=== PATIENT | male | born 1950 | race Caucasian/White ===

== ENCOUNTER 2021-10-23 00:27 | Day surgery (SDC) | payer OTHER, SELFPAY ==
[2021-10-10 13:30] VITALS: BMI 32.1
--- NOTE | 2021-10-22 19:38 | WPDGICN ---
Assessment and Plan Assessment and plan (1) Screen for colon cancer: Code(s): Z12.11 - Encounter for screening for malignant neoplasm of colon Status: Acute (2) COPD (chronic obstructive pulmonary disease): Qualifiers: COPD type: unspecified COPD Qualified Code(s): J44.9 - Chronic obstructive pulmonary disease, unspecified Code(s): J44.9 - Chronic obstructive pulmonary disease, unspecified Status: Acute Assessment and Plan: Colonoscopy with possible biopsy or polypectomy or cautery or injection of substances. GI Consult Note Consult date/time: 10/22/21 19:38 HPI: Luis Antonio Jensen is a 71 year old male who s due fr colon cancer screening. He is not aware of family history of colon cancer. 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 Review of Systems Review of Systems: All systems reviewed & are unremarkable except as noted in HPI and below PMFSH Past Medical History Medical History (Updated 09/12/21 @ 15:33 by Bryan Muse MD) Bipolar 1 disorder BMI 31.0-31.9,adult Hyperlipidemia Hypertension Recurrent URI (upper respiratory infection) Screen for colon cancer Surgical History Surgical History Deviated septum FH: cholecystectomy H/O left knee surgery Pneumothorax Family History Family History Other Brain tumor Heart disease Hypertension Pancreatic cancer Social History Social History Smoking packs per day: 1 Smoking cigarettes per day: 20.0 Years smoked: 40 Smoking pack-years: 40.00 Smoking status: Current every day smoker Tobacco type: cigarettes Alcohol intake: never Drinks per week: 1 Substance use: never Substance use type: does not use Living arrangements: with family Gender identity (if verbalized by the patient): Male Sexual Orientation (if Verbalized by the Patient): Straight or Heterosexual Spiritual care concerns: No Meds Home Medications and Allergies Home Medications Medication Instructions Recorded Confirmed Type lamotrigine 200 mg tablet 200 mg PO DAILY tablet 09/12/21 10/23/21 History losartan 50 mg tablet 50 mg PO DAILY tablet 09/12/21 10/23/21 History simvastatin 40 mg tablet 40 mg PO DAILY tablet 09/12/21 10/23/21 History venlafaxine 150 mg 150 mg PO DAILY cap 09/12/21 10/23/21 History capsule,extended release 24 hr Allergies Allergy/AdvReac Type Severity Reaction Status Date / Time No Known Allergies Allergy Verified 10/23/21 10:53 Exam Const: General: alert Nutritional Appearance: overweight Orientation/consciousness: patient oriented x3 Resp: Auscultation: clear to auscultation bilaterally Cardio: Rhythm: regular rhythm GI: GI Palp: Yes Soft to palpation and No Tenderness to palpation present (GI) Neuro: General: patient oriented x3 AMG Consult Billing Observation Consult [id number] New Pt Lvl 2 Strfd
[2021-10-23 10:45] VITALS: BP 168/80; PULSE 74; RESP 18; TEMP 36.7; O2SAT 99; BMI 32.0
[2021-10-23] MEDS: LACTATED RINGERS 1,000 ML 150 ML IV CONT (11:08)
--- NOTE | 2021-10-23 11:11 | P.PNAN_ITS ---
Anes - Initial Pre Proc Eval Procedure: Operation Date: 10/23/21 12:30 Proposed Procedures p Screening Colonoscopy - Vignesh Abbasi MD Date/Time: 10/23/21 11:11 Surgeon: Vignesh Abbasi MD Pre Op Diagnosis: neoplasm screening Patient Data Age: 71 Gender: M Height: 1.8 m Weight: 104.1 kg Last Vital Signs Temp 36.7 C 10/23/21 10:45 Pulse 74 10/23/21 10:45 Resp 18 10/23/21 10:45 BP 168/80 H 10/23/21 10:45 Pulse Ox 99 10/23/21 10:45 Allergies Allergy/AdvReac Type Severity Reaction Status Date / Time No Known Allergies Allergy Verified 10/23/21 10:53 Home Medications Medication Instructions Recorded Confirmed Type lamotrigine 200 mg tablet 200 mg PO DAILY tablet 09/12/21 10/23/21 History losartan 50 mg tablet 50 mg PO DAILY tablet 09/12/21 10/23/21 History simvastatin 40 mg tablet 40 mg PO DAILY tablet 09/12/21 10/23/21 History venlafaxine 150 mg 150 mg PO DAILY cap 09/12/21 10/23/21 History capsule,extended release 24 hr Patient hx anesthesia problems: none Family hx anesthesia problems: none Results Review: All pre-operative results and documents have been reviewed as part of the pre-operative evaluation. [facility] Past Medical History Medical History Bipolar 1 disorder BMI 31.0-31.9,adult Hyperlipidemia Hypertension Recurrent URI (upper respiratory infection) Screen for colon cancer Surgical History Surgical History Deviated septum FH: cholecystectomy H/O left knee surgery Pneumothorax Family History Family History Other Brain tumor Heart disease Hypertension Pancreatic cancer Social History Social History Smoking packs per day: 1 Smoking cigarettes per day: 20.0 Years smoked: 40 Smoking pack-years: 40.00 Smoking status: Current every day smoker Tobacco type: cigarettes Alcohol intake: never Drinks per week: 1 Substance use: never Substance use type: does not use Living arrangements: with family Gender identity (if verbalized by the patient): Male Sexual Orientation (if Verbalized by the Patient): Straight or Heterosexual Spiritual care concerns: No Anes - Eval Final PreProcedure Day of Procedure 10/23/21 11:11 Patient weight: obese Heart: regular rate and rhythm Lungs: clear to auscultation Airway: Mallampati scale class II Neurological: alert and oriented Last oral intake: >/= 8 hours ASA classification: III Emergent: no Anesthetic plan: proceed Anesthesia type and monitoring: general GIVS and standard monitoring Results Review: All pre-operative results and documents have been reviewed as part of the pre-operative evaluation. Informed Consent: The patient's anesthetic plan and its attendant risks and benefits were discussed with the patient/family/POA. Questions were solicited and answers provided to the satisfaction of the patient/family/POA.
[2021-10-23 12:29] VITALS: BP 99/63; PULSE 69; RESP 20; O2SAT 95
[2021-10-23 12:39] VITALS: BP 118/75; PULSE 64; RESP 18; O2SAT 96
[2021-10-23 12:49] VITALS: BP 135/78; PULSE 62; RESP 20; O2SAT 97
== END 2021-10-23 13:00 | disposition home or self-care (01) ==
PROVIDERS: PCP Family Medicine; Visit Provider Internal Medicine Gastroenterology
PROC: 0DJD8ZZ Inspection of Lower Intestinal Tract, Via Natural or Artificial Opening Endoscopic (ICD-10-PCS; CPT 45378; principal; 2021-10-23 12:30)
DX: Z12.11 Encounter for screening for malignant neoplasm of colon (principal); D12.0 Benign neoplasm of cecum; K63.5 Polyp of colon; J44.9 Chronic obstructive pulmonary disease, unspecified; I10 Essential (primary) hypertension; E78.5 Hyperlipidemia, unspecified; F31.9 Bipolar disorder, unspecified; F10.21 Alcohol dependence, in remission; F17.210 Nicotine dependence, cigarettes, uncomplicated; E66.9 Obesity, unspecified; Z68.32 Body mass index [BMI] 32.0-32.9, adult
CPT/HCPCS: 45385; 88305; J2704; J7120

== ENCOUNTER 2022-11-13 09:05 | Outpatient (CLI) | payer OTHER, SELFPAY ==
[2022-11-13 09:59] LABS: Anion Gap 3 mmol/L (8-16); Blood Urea Nitrogen 13 mg/dL (9-20); Carbon Dioxide 30 mmol/L (22-30); Chloride 103 mmol/L (98-107); Estimated Glomerular Filt Rate 60; Glucose 105 mg/dL (65-110); Potassium 4.4 mmol/L (3.4-5.0); Sodium 136 mmol/L (137-145)
[2022-11-13 10:42] LABS: Hemoglobin A1C 5.3 % (<5.7)
== END 2022-11-13 09:06 | disposition home or self-care (01) ==
PROVIDERS: PCP Family Medicine; Visit Provider Nurse Practitioner Family
DX: R73.09 Other abnormal glucose (principal)
CPT/HCPCS: 36415; 80048; 83036

== ENCOUNTER 2023-04-18 19:21 | Observation (INO) | payer OTHER, SELFPAY ==
--- NOTE | ~2023-04-18 | US_ITS ---
EXAMINATION: US renal BI DATE: 04/19/2023 09:33 INDICATION: Acute kidney injury TECHNIQUE: Multiple grayscale and Doppler ultrasound images of the kidneys were obtained. COMPARISON: None. FINDINGS: The right kidney measures 12.5 x 4.5 x 5.5 cm. The left kidney measures 13.3 x 6 x 5.8 cm. The kidneys demonstrate normal parenchymal echogenicity. There is mild cortical thinning of the kidne ys. Multiple cysts are present in the kidneys. There is no hydronephrosis. The bladder is normal. IMPRESSION: 1. Normal kidneys without hydronephrosis. Reviewed, dictated and finalized at location B.
--- NOTE | ~2023-04-18 | XR_ITS ---
EXAMINATION: XR chest 2V DATE: 04/18/2023 21:31 INDICATION: Cough. TECHNIQUE: Frontal and lateral views of the chest were obtained. COMPARISON: None. FINDINGS: There are airspace opacities in left lower lung zone. There is a small left pleural effusio n. No pneumothorax. The heart size is normal. IMPRESSION: 1. Airspace opacities in left lower lung zone, consistent with atelectasis versus pneumonia. 2. Small left pleural effusion. Reviewed, dictated and finalized at location E. IMPRESSION: 1. Airspace opacities in left lower lung zone, consistent with atelectasis vers us pneumonia. 2. Small left pleural effusion.
[2023-04-18 19:40] VITALS: BP 111/56; PULSE 71; RESP 15; TEMP 36; O2SAT 100
--- NOTE | 2023-04-18 19:45 | ECG_ITS ---
Measurements Intervals [place] Rate: 55 P: 22 CO: 174 QRS: 32 QRSD: 89 T: 93 QT: 445 QTc: 427 Interpretive Statements SINUS BRADYCARDIA BORDERLINE ST-T WAVE ABNORMALITY- HIGH LATERAL LEADS BORDERLINE ECG NO PREVIOUS ECG AVAILABLE FOR COMPARISON Electronically Signed On 04-18-2023 20:30:53 CDT by Anatoliy Topete D.O.
[2023-04-18 21:41] LABS: Basophils Absolute Auto 0.1 K/mm3 (0.0-0.1); Eosinophils Absolute Auto 0.5 K/mm3 (0-0.3); Eosinophils Percent Auto 6.5 % (0-4.4); Immature Granulocyte Absolute 0.06 K/mm3 (0.00-0.031); Immature Granulocyte Percent A 0.8 % (0-0.5); Lymphocytes Absolute Auto 1.65 K/mm3 (0.9-3.2); Lymphocytes Percent Auto 20.9 % (18.3-44.2); Mean Corpuscular HGB Conc 32.5 g/dl (32-36); Mean Corpuscular Hemoglobin 29.1 pg (26-34); Mean Corpuscular Volume 89.5 fl (80-100); Monocytes Absolute Auto 0.8 K/mm3 (0.1-0.6); Neutrophils Absolute Auto 4.8 K/mm3 (1.3-6.7); Neutrophils Percent Auto 60.8 % (45.5-73.1); Platelet Count Result 311 k/mm3 (150-375); Red Blood Count 4.47 M/mm3 (4.6-6.20); White Blood Count 7.9 K/mm3 (4.5-10.0)
[2023-04-18 21:51] LABS: Alanine Aminotransferase 54 U/L (6-50); Alkaline Phosphatase 68 U/L (38-126); Anion Gap 6 mmol/L (8-16); Aspartate Amino Transferase 36 U/L (17-59); Bilirubin,Total 0.4 mg/dL (0.2-1.3); Blood Urea Nitrogen 16 mg/dL (9-20); Calcium 9.1 mg/dL (8.4-10.2); Carbon Dioxide 30 mmol/L (22-30); Chloride 104 mmol/L (98-107); Estimated CRCL calculation 48 ml/min; Estimated Glomerular Filt Rate 43; Glucose 100 mg/dL (65-110); Potassium 4.5 mmol/L (3.4-5.0); Sodium 140 mmol/L (137-145)
[2023-04-18 21:59] LABS: NT Pro B Type Natriuretic Pept 225 pg/mL (19.9-100)
[2023-04-18 22:20] LABS: Troponin I < 0.012 ng/mL (0.000-0.034)
--- NOTE | 2023-04-18 22:31 | PM.IMHP ---
H&P: HPI History of Present Illness Date/Time: 04/18/23 22:31 Chief Complaint: Syncope Narrative: This is a 73-year-old male with past medical history significant for hypertension, glaucoma, dyslipidemia, bipolar disorder. Patient presents to the emergency room after having syncopal episode x2 at home according to patient his been having fits of cough which is productive of phlegm denies any fevers, rigors, chills, nausea, vomiting, diarrhea, chest pain, lightheadedness, vertigo, leg swelling. Patient had been seen at urgent care and diagnosed with bronchitis given a course of Zithromax . Preliminary workup was significant for orthostatic blood pressures, chemistry panel showed creatinine of 1.6 a chest x-ray was reported as: EXAMINATION: XR chest 2V DATE: 04/18/2023 21:31 INDICATION: Cough. TECHNIQUE: Frontal and lateral views of the chest were obtained. COMPARISON: None. FINDINGS: There are airspace opacities in left lower lung zone. There is a small left pleural effusion. No pneumothorax. The heart size is normal. IMPRESSION: 1. Airspace opacities in left lower lung zone, consistent with atelectasis versus pneumonia. 2. Small left pleural effusion. Review of Systems Review of Systems: Syncope, cough productive of sputum, Constitutional: Constitutional: Reports chills, Reports fatigue, Denies fever(s), Reports lethargy, Reports malaise, Denies night sweats and Reports poor appetite Eyes: Eyes: Denies change in vision ENT: Denies dysphagia, Denies vertigo, Denies dizziness and Denies odynophagia Cardiovascular: Cardiovascular: Denies chest pain, Denies radiating jaw, neck or arm pain and Denies palpitations Respiratory: Respiratory: Reports chest congestion, Reports cough and Reports excessive phlegm production Gastrointestinal: Gastrointestinal: Denies abdominal pain, Denies dyspepsia, Denies heartburn, Denies diarrhea, Denies nausea and Denies vomiting Genitourinary: Genitourinary: Denies dysuria and Denies flank pain Musculoskeletal: Musculoskeletal: Denies back pain, Denies arthralgias and Denies joint swelling Integumentary/Breasts: Skin/Breast: Denies rash Neurologic: Denies focal weakness and Denies Sensory deficit (Neuro) Psychiatric: Psychiatric: Reports no additional psychiatric complaints and Reports as per HPI Endocrine: Endocrine: Denies cold intolerance, Denies flushing, Denies heat intolerance, Denies polyphagia, Denies polydipsia and Denies palpitations Hematologic/Lymphatic: Hematologic/Lymphatic: Reports no additional hematologic/lymphatic complaints and Reports as per HPI Allergic/Immunologic: Allergic/Immunologic: Reports no additional allergic/immunologic complaints and Reports as per HPI [facility] Past Medical History Medical History Bipolar 1 disorder BMI 31.0-31.9,adult BMI 32.0-32.9,adult Glaucoma Hyperlipidemia Hypertension Ingrown nail of great toe Recurrent URI (upper respiratory infection) Screen for colon cancer Screening for prostate cancer Surgical History Surgical History Deviated septum FH: cholecystectomy H/O left knee surgery Pneumothorax Family History Family History Other Brain tumor Heart disease Hypertension Pancreatic cancer Social History Social History Smoking packs per day: 1 Smoking cigarettes per day: 20.0 Years smoked: 40 Smoking pack-years: 40.00 Smoking status: Current every day smoker Tobacco type: cigarettes Alcohol intake: never Drinks per week: 1 Substance use: never Substance use type: does not use Lack of Transportation: No Lack of Food: Never True Current Housing: I Have Housing Concerned About Future Housing: No Difficulty Paying Gas/Electric Bills: No Difficulty Paying
--- NOTE | 2023-04-18 22:36 | ED.URI ---
HPI - URI/Sore Throat General Chief Complaint: Upper Respiratory Infection <Ashley Benitez APRN - Last Filed: 04/19/23 03:11> Stated Complaint: COPD, cough <Ashley Benitez APRN - Last Filed: 04/19/23 03:11> Time Seen by Provider: 04/18/23 21:10 <Ashley Benitez APRN - Last Filed: 04/19/23 03:11> Source: patient <Ashley Benitez APRN - Last Filed: 04/19/23 03:11> Mode of arrival: ambulatory <Ashley Benitez APRN - Last Filed: 04/19/23 03:11> Limitations: no limitations <Ashley Benitez APRN - Last Filed: 04/19/23 03:11> History of Present Illness HPI Narrative: 73-year-old male presents today with concerns for continued cough. Patient states he was seen in urgent care on Saturday diagnosed with bronchitis sent home with albuterol and azithromycin. Over the last few days cough is continued to get worse. Per patient he states he has had syncopal episodes x2 while coughing. Both episodes he was sitting down so no injury had occurred. Patient had an episode tonight where he was coughing and had concerns for syncope and possibly passing out decided come to the emergency department. Chest pain to the right side with cough. Denies fevers, body aches, chills. <Ashley Benitez APRN - Last Filed: 04/19/23 03:11> Related Data Home Medications: Home Medications Medication Instructions Recorded Confirmed lamotrigine 200 mg tablet 200 mg PO HS 09/12/21 04/19/23 venlafaxine 150 mg 150 mg PO DAILY 09/12/21 04/19/23 capsule,extended release 24 hr albuterol sulfate 90 mcg/actuation 2 puff inhalation Q4-6H PRN 04/19/23 04/19/23 aerosol inhaler Shortness Of Breath benzonatate 100 mg capsule 100 mg PO Q6H PRN Cough 04/19/23 04/19/23 dorzolamide 2 % eye drops 2 drp ophthalmic (eye) Q12H 04/19/23 04/19/23 latanoprost 0.005 % eye drops 1 drp ophthalmic (eye) QHS 04/19/23 04/19/23 simvastatin 40 mg tablet 40 mg PO HS 04/19/23 04/19/23 <Ashley Benitez APRN - Last Filed: 04/19/23 03:11> Allergies/Adverse Reactions: Allergies Allergy/AdvReac Type Severity Reaction Status Date / Time morphine Allergy Difficulty Verified 04/19/23 01:04 Breathing <Ashley Benitez APRN - Last Filed: 04/19/23 03:11> Review of Systems Review of Systems: CONSTITUTIONAL: Denies fever, chills, or sweats. EYES: Denies visual changes, redness, or discharge. ENT: Denies rhinorrhea, congestion, sore throat, or otalgia. CARDIOVASCULAR: Denies chest pain, palpitations, or edema. RESPIRATORY: Cough and shortness of breath. GASTROINTESTINAL: Denies abdominal pain, nausea, vomiting, or diarrhea. MUSCULOSKELETAL: Denies back pain, joint pain, or myalgia. <Ashley Benitez MUSHROOM PRESS OPERATOR - Last Filed: 04/19/23 03:11> [facility] Past Medical History Medical History: Medical History Bipolar 1 disorder BMI 31.0-31.9,adult BMI 32.0-32.9,adult Glaucoma Hyperlipidemia Hypertension Ingrown nail of great toe Recurrent URI (upper respiratory infection) Screen for colon cancer Screening for prostate cancer <Ashley Benitez MUSHROOM PRESS OPERATOR - Last Filed: 04/19/23 03:11> Surgical History Surgical History: Surgical History Deviated septum FH: cholecystectomy H/O left knee surgery Pneumothorax <Ashley Benitez MUSHROOM PRESS OPERATOR - Last Filed: 04/19/23 03:11> Family History Family History: Family History Other Brain tumor Heart disease Hypertension Pancreatic cancer <Ashley Benitez MUSHROOM PRESS OPERATOR - Last Filed: 04/19/23 03:11> Social History Social History: Social History Smoking packs per day: 1 Smoking cigarettes per day: 20.0 Years smoked: 40 Smoking pack-years: 40.00 Smoking status: Current every day smoker Tobacco type: cigarettes Alcohol intake: never Drinks per week: 1 Substance u
[2023-04-18 22:42] VITALS: BP 130/63; PULSE 54; RESP 20; O2SAT 96
[2023-04-18] MEDS: SODIUM CHLORIDE 0.9% IV 1,000 ML 999 ML IV CONT (22:53)
[2023-04-18] MEDS: methylPREDNISolone SOD SUCC 125 MG VIAL IV PUSH (22:54)
[2023-04-18 23:52] VITALS: BP 154/69; PULSE 58; RESP 19; TEMP 36.6; O2SAT 97
[2023-04-19] VITALS (7 sets, daily range): BP systolic 133–148; BP diastolic 64–72; PULSE 56–68; RESP 18–20; TEMP 36.4–36.5; O2SAT 94–98; BMI 29.0
--- NOTE | 2023-04-19 00:25 | ADMGEN ---
This patient, Luis Antonio Jensen, was admitted to Medical Room 248-. Patient/family oriented to hospital policies and general routines including ID bracelet, bed and alarms, visiting hours, pain management, procedures, bathroom and other care routines, personal items, smoking policy, room service/diet, and visiting hours. Information on how to activate the Rapid Response Team has been discussed. Patient/Family are encouraged to report perceived risks to care and to ask questions if they do not understand what they are told or what they should do.
[2023-04-19] MEDS: LACTATED RINGERS 1,000 ML 75 ML IV CONT (01:12)
[2023-04-19] MEDS: AZITHROMYCIN 500 MG/NS 250 ML 500 MG/250 ML BAG 250 MG IVPB (01:12)
[2023-04-19 05:33] LABS: Basophils Percent Auto 0.7 % (0.2-1.2); Eosinophils Percent Auto 0.7 % (0-4.4); Hematocrit 37.1 % (42.0-52.0); Hemoglobin 12.2 g/dL (14.0-18.0); Immature Granulocyte Absolute 0.02 K/mm3 (0.00-0.031); Immature Granulocyte Percent A 0.3 % (0-0.5); Lymphocytes Absolute Auto 0.84 K/mm3 (0.9-3.2); Lymphocytes Percent Auto 14.2 % (18.3-44.2); Mean Corpuscular HGB Conc 32.9 g/dl (32-36); Mean Corpuscular Hemoglobin 29.4 pg (26-34); Mean Corpuscular Volume 89.4 fl (80-100); Mean Platelet Volume 9.3 fl (7.4-10.4); Monocytes Absolute Auto 0.2 K/mm3 (0.1-0.6); Monocytes Percent Auto 2.5 % (2.6-8.5); Neutrophils Absolute Auto 4.8 K/mm3 (1.3-6.7); Neutrophils Percent Auto 81.6 % (45.5-73.1); Platelet Count Result 282 k/mm3 (150-375); Red Blood Count 4.15 M/mm3 (4.6-6.20); Red Cell Distribution Width 12.8 % (11.5-14.5); White Blood Count 5.9 K/mm3 (4.5-10.0)
[2023-04-19 05:51] LABS: Alanine Aminotransferase 46 U/L (6-50); Albumin Level 3.7 g/dL (3.5-5.1); Alkaline Phosphatase 65 U/L (38-126); Anion Gap 6 mmol/L (8-16); Aspartate Amino Transferase 34 U/L (17-59); Bilirubin,Total 0.3 mg/dL (0.2-1.3); Blood Urea Nitrogen 16 mg/dL (9-20); Calcium 8.6 mg/dL (8.4-10.2); Carbon Dioxide 24 mmol/L (22-30); Chloride 109 mmol/L (98-107); Estimated CRCL calculation 53 ml/min; Estimated Glomerular Filt Rate 54; Glucose 143 mg/dL (65-110); Potassium 4.3 mmol/L (3.4-5.0); Sodium 139 mmol/L (137-145)
[2023-04-19] MEDS: DORZOLAMIDE HCL 2% OPHTH DROPS 2 DROP EACH EYE (08:46)
[2023-04-19] MEDS: PROPRANOLOL HCL 60 MG CAPSULE CR PO (08:50)
[2023-04-19] MEDS: VENLAFAXINE HCL XR 75 MG CAP.ER.24H 150 MG PO (09:52)
--- NOTE | 2023-04-19 10:17 | PM.DS ---
DS: Admitting Diagnosis Discharge Date 04/19/23 Admitting Diagnosis Acute bronchitis TR DS: Discharge Diagnosis Discharge Diagnosis (1) TR (acute kidney injury): Code(s): N17.9 - Acute kidney failure, unspecified Status: Acute (2) Acute bronchitis: Code(s): J20.9 - Acute bronchitis, unspecified Status: Acute DS: Summary Hospital Course Hospital Course: This is a 73-year-old male with past medical history significant for hypertension, glaucoma, dyslipidemia, bipolar disorder.? Patient presents to the emergency room after having syncopal episode x2 at home according to patient his been having fits of cough which is productive of phlegm denies any fevers, rigors, chills, nausea, vomiting, diarrhea, chest pain, lightheadedness, vertigo, leg swelling.? Patient had been seen at urgent care and diagnosed with bronchitis given a course of Zithromax .? Preliminary workup was significant for orthostatic blood pressures, chemistry panel showed creatinine of 1.6 a chest x-ray was reported as: 1. Airspace opacities in left lower lung zone, consistent with atelectasis versus pneumonia. 2. Small left pleural effusion. Patient was started on IV fluids after which his renal functions are improved. There is no evidence of pneumonia. Patient has bronchitis. He has cough but no sputum production. He is a current smoker. Patient was counseled on smoking cessation. He is being discharged home with oral Zithromax for few days Time Spent with Patient Time attestation: Total time spent providing and/or coordinating discharge services: DS: Data Data Completed and Pending Labs on day of discharge: Labs from last 24 hours 04/19/23 04/18/23 05:12 21:36 WBC 5.9 7.9 RBC 4.15 L 4.47 L Hgb 12.2 L 13.0 L Hct 37.1 L 40.0 L MCV 89.4 89.5 MCH 29.4 29.1 MCHC 32.9 32.5 RDW 12.8 13.0 Plt Count 282 311 MPV 9.3 9.0 Immature Gran % (Auto) 0.3 0.8 H Neut % (Auto) 81.6 H 60.8 Lymph % (Auto) 14.2 L 20.9 [place] % (Auto) 2.5 L 10.0 H Eos % (Auto) 0.7 6.5 H Baso % (Auto) 0.7 1.0 Lymph # (Auto) 0.84 L 1.65 [place] # (Auto) 0.2 0.8 H Eos # (Auto) 0.0 0.5 H Baso # (Auto) 0.0 0.1 Abs Immat Gran (auto) 0.02 0.06 H Absolute Neuts (auto) 4.8 4.8 Absolute Nucleated RBC 0.0 0.0 Nucleated RBC % 0.0 0.0 Sodium 139 140 Potassium 4.3 4.5 Chloride 109 H 104 Carbon Dioxide 24 30 Anion Gap 6 L 6 L BUN 16 16 Creatinine 1.30 1.60 H Estim Creat Clear Calc 53 48 Estimated GFR 54 L 43 L Glucose 143 H 100 Calcium 8.6 9.1 Total Bilirubin 0.3 0.4 AST 34 36 ALT 46 54 H Alkaline Phosphatase 65 68 Troponin I < 0.012 NT-Pro-B Natriuret Pep 225 H Total Protein 7.0 8.0 Albumin 3.7 4.0 Discharge Plan Discharge Discharging Clinician: Chris Casey Anticipated Discharge Date/Time: 04/19/23 10:16 Patient Disposition: Home, Self-Care Activity: no preference Diet: heart healthy Patient Instructions: Antibiotic Form, How to Stop Smoking (DC) Stand Alone Forms: General Discharge Information Follow-up/Referrals: Bryan Muse MD [Primary Care Provider] - Discharge Medications: New azithromycin 500 mg tablet See Rx Instructions .ROUTE .COMPLEX Qty: 3 0RF Rx Instructions: For 500 mg dose pack: take 500 mg once daily for 3 days Continued venlafaxine 150 mg capsule,extended release 24hr 150 mg PO DAILY lamotrigine 200 mg tablet 200 mg PO HS latanoprost 0.005 % drops 1 drp ophthalmic (eye) QHS Rx Instructions: BOTH EYES benzonatate 100 mg capsule 100 mg PO Q6H PRN (Reason: Cough) albuterol sulfate 90 mcg/actuation HFA aerosol inhaler 2 puff INHALATION Q4-6H PRN (Reason: Shortness Of Breath) dorzolamide 2 % drops 2 drp ophthalmic (eye) Q12H Rx Instructions: BOTH EYES simvastatin 40 mg tablet 40 mg PO HS losartan 100 mg tablet 100 mg PO DAILY Qty: 90 3
--- NOTE | 2023-04-19 13:07 | PCCCNOTE ---
On 04/19/23, the student, [Almita Salazar], provided care and completed [facility] documentation on this patient. I have reviewed the student's documentation and agree with the findings.
== END 2023-04-19 11:07 | disposition home or self-care (01) ==
LOC: ANHED 22:49 → ANH2MED 04-19 00:52
PROVIDERS: Admitting Provider Internal Medicine; Emergency Provider Nurse Practitioner Family; PCP Family Medicine; Visit Provider Hospitalist
DX: J20.9 Acute bronchitis, unspecified (principal); F31.9 Bipolar disorder, unspecified; H40.9 Unspecified glaucoma; E78.5 Hyperlipidemia, unspecified; R79.89 Other specified abnormal findings of blood chemistry; J90 Pleural effusion, not elsewhere classified; I10 Essential (primary) hypertension; R00.1 Bradycardia, unspecified; J44.9 Chronic obstructive pulmonary disease, unspecified; F17.210 Nicotine dependence, cigarettes, uncomplicated; Z79.51 Long term (current) use of inhaled steroids; Z79.899 Other long term (current) drug therapy; Z82.49 Family history of ischemic heart disease and other diseases of the circulatory system
CPT/HCPCS: 36415; 71046; 76775; 80053; 83880; 84484; 85025; 87040; 93005; 96361; 96365; 96367; 96375; 99285; A9270; G0378; J0456; J0696; J2930; J7030; J7120

== ENCOUNTER 2023-06-13 12:47 | Outpatient (CLI) | payer OTHER, SELFPAY ==
--- NOTE | ~2023-06-13 | XR_ITS ---
Clinical Indication: Cough PA and lateral views of the chest: Comparison: 04/18/2023 Findings: The lungs are clear, without evidence of focal consolidation or pleural effusion. Cardiome diastinal silhouette is within normal limits. Bones and soft tissues are unremarkable. Impression: Normal chest. Previously noted left lower lobe airspace disease is resolved. Reviewed, dictated and finalized at location . Impression: Normal chest. Previously noted left lower lobe airspace disease is resolved.
== END 2023-06-13 12:48 | disposition home or self-care (01) ==
PROVIDERS: PCP Family Medicine; Visit Provider Nurse Practitioner Family
DX: R05.9 Cough, unspecified (principal); J18.9 Pneumonia, unspecified organism
CPT/HCPCS: 71046

== ENCOUNTER 2023-06-19 10:46 | Outpatient (CLI) | payer OTHER, SELFPAY ==
[2023-06-19 11:30] LABS: Basophils Absolute Auto 0.1 K/mm3 (0.0-0.1); Eosinophils Absolute Auto 0.5 K/mm3 (0-0.3); Eosinophils Percent Auto 5.2 % (0-4.4); Hematocrit 40.2 % (42.0-52.0); Hemoglobin 13.5 g/dL (14.0-18.0); Immature Granulocyte Absolute 0.05 K/mm3 (0.00-0.031); Immature Granulocyte Percent A 0.5 % (0-0.5); Lymphocytes Absolute Auto 2.37 K/mm3 (0.9-3.2); Lymphocytes Percent Auto 25.9 % (18.3-44.2); Mean Corpuscular HGB Conc 33.6 g/dl (32-36); Mean Corpuscular Hemoglobin 29.7 pg (26-34); Mean Corpuscular Volume 88.5 fl (80-100); Mean Platelet Volume 9.5 fl (7.4-10.4); Monocytes Absolute Auto 0.7 K/mm3 (0.1-0.6); Monocytes Percent Auto 7.1 % (2.6-8.5); Neutrophils Absolute Auto 5.5 K/mm3 (1.3-6.7); Neutrophils Percent Auto 60.3 % (45.5-73.1); Platelet Count Result 374 k/mm3 (150-375); Red Blood Count 4.54 M/mm3 (4.6-6.20); Red Cell Distribution Width 13.1 % (11.5-14.5); White Blood Count 9.2 K/mm3 (4.5-10.0)
== END 2023-06-19 10:47 | disposition home or self-care (01) ==
PROVIDERS: PCP Family Medicine; Visit Provider Physician Assistant Medical
DX: I10 Essential (primary) hypertension (principal)
CPT/HCPCS: 36415; 85025

== ENCOUNTER 2023-06-20 11:22 | Outpatient (CLI) | payer OTHER, SELFPAY ==
[2023-06-20 13:58] LABS: Iron 109 ug/dL (49-181)
[2023-06-20 14:07] LABS: Percent Iron Saturation 29 % (20-50)
== END 2023-06-20 11:23 | disposition home or self-care (01) ==
LOC: ANHLAB 11:23
PROVIDERS: Visit Provider Physician Assistant Medical
DX: D64.9 Anemia, unspecified (principal)
CPT/HCPCS: 36415; 83540; 83550

== ENCOUNTER → 2023-06-21 12:16 | Outpatient (CLI) | payer OTHER, SELFPAY ==
--- NOTE | ~2023-06-21 | US_ITS ---
EXAMINATION: US soft tissue head and neck DATE: 06/21/2023 12:32 INDICATION: Other diseases of salivary glands. Left neck mass. TECHNIQUE: Multiple grayscale and Doppler ultrasound images of the neck were obtained. COMPARISON: None FINDINGS: There is a normal submandibular lymph node in the patient's area of concern in left neck. IMPRESSION: 1. No abnormal mass or lymphadenopathy in the patient's area of concern in left neck. Reviewed, dictated and finalized at location E.
== END ==
PROVIDERS: PCP Family Medicine; Visit Provider Physician Assistant Medical
DX: K11.8 Other diseases of salivary glands (principal)
CPT/HCPCS: 76536

== ENCOUNTER 2023-08-26 07:59 | Outpatient (CLI) | payer OTHER, SELFPAY ==
--- NOTE | 2023-08-31 16:52 | WPDPFTINT ---
PFT Procedure Performed PFT Procedure Performed Spirometry with Pre/Post Bronchodilator Plethysmography (Lung Vol) Diffusing Cap (DLCO) Flow Vol Loop PFT Interpretation DOS: 08/26/2023 REQUESTING: Bryan Muse MD REASON FOR TESTING: COPD PULMONARY FUNCTION TESTS Repeatability of spirometry FEV1 maneuver pre bronchodilator is Grade A. Repeat ability of spirometry FEV1 maneuver post bronchodilator is Grade A. Spirometry: Pre-bronchodilator FEV1 is 2.27 L, 71% predicted, mildly decreased. Pre-bronchodilator FVC is 3.61 L, 85% predicted, in the normal range. FEV1/FVC is 63%, low end of normal. After bronchodilator, there is no change in the FEV1. There is a 9% drop in the FVC. The FEV1/FVC ratio post bronchodilator is 70%, normal range. This response to bronchodilator is not statistically significant. Lung volumes: Total lung capacity is 5.79 L, 82% predicted, normal. The residual volume is 2.18 L, 88% predicted, normal. RV/TLC is 38% predicted, normal. Airway resistance is 3.09 cmH2O/L/sec, 226%, increased. Diffusion: DLCO is 21.5, 83% predicted, normal. DLCO/VA is 4.11, 105% predicted, normal. Flow volume loop: The flow volume loop is normal on both limbs. There is early closure on the inspiratory limb. The expiratory limb is flattened. This flow volume loop is abnormal. Although it is not classic for fixed upper airway obstruction it raises a concern for this problem. Consider imaging of the upper neck. IMPRESSION: Normal spirometry with mildly decreased FEV1 but no airflow obstruction, normal lung volumes and normal diffusion. There is no response to bronchodilator. The flow volume loop demonstrates attenuation of both inspiratory and expiratory limb. This is suggestive of a fixed upper airway obstruction. Consider neck T or upper airway endoscopy. Clinical correlation is recommended. Niyah Powell MD
== END 2023-08-26 08:00 | disposition home or self-care (01) ==
PROVIDERS: PCP Family Medicine; Visit Provider Family Medicine
DX: J44.9 Chronic obstructive pulmonary disease, unspecified (principal)
CPT/HCPCS: 94060; 94726; 94729

== ENCOUNTER 2023-10-29 10:13 | Outpatient (CLI) | payer OTHER, SELFPAY ==
--- NOTE | ~2023-10-29 | CT_ITS ---
CT Scan of the Chest without Contrast: Clinical Indication: Lung cancer screening, personal history of nicotine dependence Technique: Contiguous sections were acquired throughout the chest without intravenous contrast. Dose reduction technique was used on this scan by utilizing automated exposure control and iterative recon struction technique. The dose-length product (DLP) was 211.89 mGy-cm. Findings: There is no evidence of any significant mediastinal, hilar or axillary lymphadenopathy. Coronary jenniffer ry calcium cages are present. There is no evidence of pleural or pericardial effusion. There is amorphous groundglass opacity in the medial right lower lobe behind hilum (axial image 61 fo r example). No pulmonary nodule evident. Images through the upper abdomen reveal no abnormalities. Impression: Lung RADS 1-S: Negative. 12 month follow-up screening CT advised. Groundglass opacity in the medial right lower lobe focally. Findings could reflect focal pneumonia ve rsus atelectatic change. Correlate clinically. Reviewed, dictated and finalized at location . [facility] Impression: Lung RADS 1-S: Negative. 12 month follow-up screening CT advised. Groundglass opacity in the medial right lower lobe focally. Findings could refl ect focal pneumonia versus atelectatic change. Correlate clinically.
== END 2023-10-29 10:14 | disposition home or self-care (01) ==
PROVIDERS: PCP Family Medicine; Visit Provider Internal Medicine Pulmonary Disease
DX: Z12.2 Encounter for screening for malignant neoplasm of respiratory organs (principal); Z87.891 Personal history of nicotine dependence
CPT/HCPCS: 71271

== ENCOUNTER 2024-01-04 14:18 | Emergency (ER) | payer OTHER, SELFPAY ==
[2024-01-04] VITALS (7 sets, daily range): BP systolic 141–148; BP diastolic 69–82; PULSE 84–95; RESP 18–24; TEMP 37–38.7; O2SAT 94–99
--- NOTE | ~2024-01-04 | XR_ITS ---
EXAMINATION: XR chest 1V portable DATE: 01/04/2024 15:41 INDICATION: Shortness of breath. Fever. Cough. TECHNIQUE: A single frontal view of the chest was obtained. COMPARISON: Chest 2 views 06/13/2023, chest CT 10/29/2023 FINDINGS: There is no pneumonia, pleural effusion, or pneumothorax. The heart size is normal. IMPRESSION: 1. No acute cardiopulmonary disease. Reviewed, dictated and finalized at location A.
--- NOTE | 2024-01-04 14:41 | ECG_ITS ---
Measurements Intervals [place] Rate: 87 P: 49 [place]: 147 QRS: 13 QRSD: 84 T: 97 QT: 352 QTc: 425 Interpretive Statements SINUS RHYTHM CONSIDER INFERIOR INFARCT, AGE INDETERMINATE ST-T WAVE ABNORMALITY IN HIGH LATERAL LEADS- CONSIDER ISCHEMIA ABNORMAL ECG COMPARED TO ECG 04/18/2023 20:25:58 [address] NOW PRESENT ST-T WAVE ABNORMALITY NOW PRESENT Electronically Signed On 01-04-2024 17:09:06 CDT by Anatoliy Topete D.O.
--- NOTE | 2024-01-04 14:47 | ED.SOB ---
HPI - SOB/Dyspnea General Chief Complaint: Shortness of Breath/Dyspnea <Gregoria Valladares PA-C - Last Filed: 01/04/24 17:45> Stated Complaint: shortness of breath <MARKY Bocanegra Last Filed: 01/04/24 17:45> Time Seen by Provider: 01/04/24 14:41 <Gregoria Valladares PA-C - Last Filed: 01/04/24 17:45> History of Present Illness HPI Narrative: 73-year-old male with a history of COPD, hypertension, hyperlipidemia, bipolar disorder presents to emergency department his at bedside for cough and fever that started this morning. Patient is reporting a productive cough with white sputum. States his temperature was 106? at home, he retook it and it was 105. He took Zyrtec without improvement and came to the emergency department. He his temperature here is 101.5, he has not taken any antipyretics. He is reporting associated shortness of breath denies chest pain, abdominal pain, nausea vomiting, diarrhea, dysuria or hematuria. <Gregoria Valladares PA-C - Last Filed: 01/04/24 17:45> Related Data Home Medications: Home Medications Medication Instructions Recorded Confirmed lamotrigine 200 mg tablet 200 mg PO HS 09/12/21 06/17/23 venlafaxine 150 mg 150 mg PO DAILY 09/12/21 06/17/23 capsule,extended release 24 hr dorzolamide 2 % eye drops 2 drp ophthalmic (eye) Q12H 04/19/23 06/17/23 latanoprost 0.005 % eye drops 1 drp ophthalmic (eye) QHS 04/19/23 06/17/23 <Gregoria Valladares PA-C - Last Filed: 01/04/24 17:45> Allergies/Adverse Reactions: Allergies Allergy/AdvReac Type Severity Reaction Status Date / Time morphine Allergy Difficulty Verified 01/04/24 14:23 Breathing <MARKY Bocanegra Last Filed: 01/04/24 17:45> Review of Systems Review of Systems: CONSTITUTIONAL: Denies fever, chills, or sweats. EYES: Denies visual changes, redness, or discharge. ENT: Denies rhinorrhea, congestion, sore throat, or otalgia. CARDIOVASCULAR: Denies chest pain, palpitations, or edema. RESPIRATORY: See HPI GASTROINTESTINAL: Denies abdominal pain, nausea, vomiting, or diarrhea. GENITOURINARY: Denies dysuria or hematuria. SKIN: Denies rash or itching. MUSCULOSKELETAL: Denies back pain, joint pain, or myalgia. NEUROLOGIC: Denies headache, numbness, or weakness. PSYCHIATRIC: Denies anxiety or depression. <Gregoria Valladares PA-C - Last Filed: 01/04/24 17:45> [facility] Past Medical History Medical History: Medical History Bipolar 1 disorder BMI 33.0-33.9,adult Glaucoma Hyperlipidemia Hypertension Ingrown nail of great toe Recurrent URI (upper respiratory infection) Screen for colon cancer Screening for prostate cancer <Gregoria Valladares PA-C - Last Filed: 01/04/24 17:45> Surgical History Surgical History: Surgical History Deviated septum FH: cholecystectomy H/O left knee surgery Pneumothorax <Gregoria Valladares PA-C - Last Filed: 01/04/24 17:45> Family History Family History: Family History Father Stomach cancer Mother , brain tumor No problems noted. Sibling No problems noted. Other Brain tumor Heart disease Hypertension Pancreatic cancer <Gregoria Valladares PA-C - Last Filed: 01/04/24 17:45> Social History Social History: Social History Smoking packs per day: 1 Smoking cigarettes per day: 20.0 Years smoked: 40 Smoking pack-years: 40.00 Smoking status: Former smoker Tobacco type: cigarettes Second hand tobacco smoke exposure: No Smoking end date: 04/08/23 Alcohol intake: current Drinks per week: 1 Substance use: never Substance use type: does not use Lack of Transportation: No Lack of Food: Never True Current Housing: I Have Housing C
[2024-01-04] MEDS: IPRATROPIUM 0.5 MG/ALBUTEROL SULFATE 2.5 MG AMPUL.NEB 3 ML INHALATION (14:58)
[2024-01-04 15:23] LABS: Basophils Absolute Auto 0.1 K/mm3 (0.0-0.1); Basophils Percent Auto 0.5 % (0.2-1.2); Eosinophils Absolute Auto 0.1 K/mm3 (0-0.3); Hematocrit 39.5 % (42.0-52.0); Immature Granulocyte Absolute 0.04 K/mm3 (0.00-0.031); Immature Granulocyte Percent A 0.3 % (0-0.5); Lymphocytes Absolute Auto 0.94 K/mm3 (0.9-3.2); Lymphocytes Percent Auto 7.5 % (18.3-44.2); Mean Corpuscular HGB Conc 32.9 g/dl (32-36); Mean Corpuscular Hemoglobin 29.3 pg (26-34); Mean Platelet Volume 9.4 fl (7.4-10.4); Monocytes Absolute Auto 1.1 K/mm3 (0.1-0.6); Monocytes Percent Auto 8.6 % (2.6-8.5); Neutrophils Absolute Auto 10.2 K/mm3 (1.3-6.7); Neutrophils Percent Auto 82.1 % (45.5-73.1); Platelet Count Result 265 k/mm3 (150-375); Red Blood Count 4.44 M/mm3 (4.6-6.20); Red Cell Distribution Width 13.9 % (11.5-14.5); White Blood Count 12.5 K/mm3 (4.5-10.0)
[2024-01-04] MEDS: ACETAMINOPHEN 500 MG TABLET 1000 MG PO (15:27)
[2024-01-04 15:31] LABS: Lactic Acid Reflex 1.8 mmol/L (0.7-2.0)
[2024-01-04 15:33] LABS: Alanine Aminotransferase 34 U/L (6-50); Alkaline Phosphatase 73 U/L (38-126); Anion Gap 6 mmol/L (4-12); Aspartate Amino Transferase 33 U/L (17-59); Bilirubin,Total 0.7 mg/dL (0.2-1.3); Blood Urea Nitrogen 13 mg/dL (9-20); Calcium 9.2 mg/dL (8.4-10.2); Carbon Dioxide 24 mmol/L (22-30); Chloride 106 mmol/L (98-107); Estimated CRCL calculation 58 ml/min; Estimated Glomerular Filt Rate 54; Glucose 147 mg/dL (65-110); Potassium 4.2 mmol/L (3.4-5.0); Sodium 136 mmol/L (137-145)
[2024-01-04 15:59] LABS: Influenza A QL RT-PCR Negative (Negative); Influenza B QL RT-PCR Negative (Negative); RSV RNA, RT-PCR Positive (Negative); SARS-CoV-2 RNA PCR Negative (Negative)
[2024-01-04 16:21] LABS: Appearance Urine Clear (Clear); Bacteria Urine None Seen /hpf; Bilirubin Urine Negative (Negative); Blood Urine Negative (Negative); Color Urine Dark Yellow (Yellow); Glucose Urine UA Negative (Negative); Ketones Urine Trace mg/dL (Negative); Leukocyte Esterase Ur Negative LEU/UL (Negative); Nitrate Urine Negative (Negative); Protein Urine 2+ mg/dL (Negative); Specific Grav Ur 1.023 (1.001-1.035); Squamous Epithelial Cell Urine Occasional /hpf (Few); WBC Urine 0-5 /hpf (0-3)
[2024-01-04 16:22] LABS: Add Urine Microscopic? YES
[2024-01-04 16:59] LABS: Troponin I < 0.012 ng/mL (0.000-0.034)
[2024-01-04] MEDS: AMOXICILLIN/CLAVULANATE K 875-125 MG TAB 1 TABLET PO (17:59)
[2024-01-04] MEDS: methylPREDNISolone SOD SUCC 125 MG VIAL IV PUSH (17:59)
== END 2024-01-04 18:09 | disposition home or self-care (01) ==
PROVIDERS: Emergency Medicine; Emergency Provider Physician Assistant; PCP Family Medicine
DX: R05.9 Cough, unspecified (principal); R06.02 Shortness of breath; B97.4 Respiratory syncytial virus as the cause of diseases classified elsewhere; J44.1 Chronic obstructive pulmonary disease with (acute) exacerbation; R94.31 Abnormal electrocardiogram [ECG] [EKG]; Z87.891 Personal history of nicotine dependence; H40.9 Unspecified glaucoma; E78.5 Hyperlipidemia, unspecified; I10 Essential (primary) hypertension; F31.9 Bipolar disorder, unspecified
CPT/HCPCS: 36415; 71045; 80053; 81001; 83605; 84484; 85025; 87637; 93005; 94640; 96374; 99284; A9270; J2930

== ENCOUNTER 2024-04-23 09:19 | Outpatient (CLI) | payer OTHER, SELFPAY | END 2024-04-23 09:20 | disposition home or self-care (01) | LOC: ANHAUDASC 09:20 | PROVIDERS: PCP Family Medicine; Visit Provider Otolaryngology | DX: H90.3 Sensorineural hearing loss, bilateral (principal); R05.3 Chronic cough; K21.9 Gastro-esophageal reflux disease without esophagitis | CPT/HCPCS: 92557; 92567 ==

== ENCOUNTER 2024-05-20 08:36 | Outpatient (CLI) | payer OTHER, SELFPAY ==
[2024-05-20 09:10] LABS: Basophils Absolute Auto 0.1 K/mm3 (0.0-0.1); Basophils Percent Auto 0.9 % (0.2-1.2); Eosinophils Absolute Auto 0.4 K/mm3 (0-0.3); Eosinophils Percent Auto 4.5 % (0-4.4); Hematocrit 41.7 % (42.0-52.0); Hemoglobin 13.4 g/dL (14.0-18.0); Immature Granulocyte Absolute 0.03 K/mm3 (0.00-0.031); Immature Granulocyte Percent A 0.3 % (0-0.5); Lymphocytes Absolute Auto 1.66 K/mm3 (0.9-3.2); Lymphocytes Percent Auto 19.2 % (18.3-44.2); Mean Corpuscular HGB Conc 32.1 g/dl (32-36); Mean Corpuscular Volume 90.3 fl (80-100); Mean Platelet Volume 9.4 fl (7.4-10.4); Monocytes Absolute Auto 0.7 K/mm3 (0.1-0.6); Neutrophils Absolute Auto 5.8 K/mm3 (1.3-6.7); Neutrophils Percent Auto 67.1 % (45.5-73.1); Platelet Count Result 297 k/mm3 (150-375); Red Blood Count 4.62 M/mm3 (4.6-6.20); Red Cell Distribution Width 13.2 % (11.5-14.5); White Blood Count 8.6 K/mm3 (4.5-10.0)
[2024-05-20 09:23] LABS: Alanine Aminotransferase 36 U/L (6-50); Albumin Level 4.1 g/dL (3.5-5.1); Alkaline Phosphatase 79 U/L (38-126); Anion Gap 9 mmol/L (4-12); Aspartate Amino Transferase 28 U/L (17-59); Bilirubin,Total 0.6 mg/dL (0.2-1.3); Blood Urea Nitrogen 15 mg/dL (9-20); Carbon Dioxide 26 mmol/L (22-30); Chloride 104 mmol/L (98-107); Cholesterol 168 mg/dL (0-200); Estimated Glomerular Filt Rate 60; Glucose 115 mg/dL (65-110); HDL Direct 30 mg/dL; Potassium 4.3 mmol/L (3.4-5.0); Sodium 139 mmol/L (137-145); Triglycerides 241 mg/dL (<150)
[2024-05-20 09:34] LABS: LDL Cholesterol Direct 101 mg/dL
[2024-05-20 09:39] LABS: Hemoglobin A1C 6.1 % (<5.7)
[2024-05-20 09:51] LABS: Prostate Specific Antigen 0.9 ng/mL (< OR = 4.0)
[2024-05-20 10:22] LABS: Iron 101 ug/dL (49-181)
[2024-05-20 10:27] LABS: Folic Acid 6.8 ng/mL (2.76->20)
[2024-05-20 10:36] LABS: Percent Iron Saturation 29 % (20-50)
[2024-05-20 20:54] LABS: GGT 40 U/L (3-70)
[2024-05-23 07:29] LABS: Vitamin B1 10 nmol/L (8-30)
== END 2024-05-20 08:37 | disposition home or self-care (01) ==
PROVIDERS: PCP Family Medicine; Visit Provider Family Medicine
DX: E78.2 Mixed hyperlipidemia (principal); Z13.220 Encounter for screening for lipoid disorders; I10 Essential (primary) hypertension; F10.20 Alcohol dependence, uncomplicated; D64.9 Anemia, unspecified; R73.09 Other abnormal glucose; Z12.5 Encounter for screening for malignant neoplasm of prostate
CPT/HCPCS: 36415; 80048; 80061; 80076; 82607; 82728; 82746; 82977; 83036; 83540; 83550; 84153; 84425; 84443; 85025; G0103

== ENCOUNTER 2024-10-24 08:55 | Outpatient (CLI) | payer OTHER, SELFPAY ==
[2024-10-24 09:32] LABS: Hematocrit 43.6 % (42.0-52.0); Hemoglobin 13.9 g/dL (14.0-18.0); Mean Corpuscular HGB Conc 31.9 g/dl (32-36); Mean Corpuscular Hemoglobin 28.5 pg (26-34); Mean Corpuscular Volume 89.3 fl (80-100); Mean Platelet Volume 9.6 fl (7.4-10.4); Platelet Count Result 319 k/mm3 (150-375); Red Blood Count 4.88 M/mm3 (4.6-6.20); Red Cell Distribution Width 13.2 % (11.5-14.5); White Blood Count 9.5 K/mm3 (4.5-10.0)
[2024-10-24 09:45] LABS: Alanine Aminotransferase 65 U/L (6-50); Albumin Level 3.9 g/dL (3.5-5.1); Alkaline Phosphatase 91 U/L (38-126); Anion Gap 5 mmol/L (4-12); Aspartate Amino Transferase 38 U/L (17-59); Bilirubin,Total 0.8 mg/dL (0.2-1.3); Blood Urea Nitrogen 11 mg/dL (9-20); Calcium 9.1 mg/dL (8.4-10.2); Carbon Dioxide 28 mmol/L (22-30); Chloride 107 mmol/L (98-107); Cholesterol 168 mg/dL (0-200); Estimated Glomerular Filt Rate > 60; Glucose 120 mg/dL (65-110); HDL Direct 31 mg/dL; Sodium 140 mmol/L (137-145); Triglycerides 234 mg/dL (<150)
[2024-10-24 09:47] LABS: Iron 79 ug/dL (49-181)
[2024-10-24 09:56] LABS: LDL Cholesterol Direct 102 mg/dL
[2024-10-24 10:01] LABS: Percent Iron Saturation 24 % (20-50)
[2024-10-24 10:16] LABS: Prostate Specific Antigen 0.9 ng/mL (< OR = 4.0)
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
--- OUTSIDE RECORDS SUMMARY | 2024-10-29 08:40 | XMS_ITS | Patient Health Summary ---
Author Organization [facility] Address [address] [place] [address] Care Team Providers Care Hides Inspector Name Role Phone Lauro Oconnor MD Unavailable [phone] Bryan Muse MD Primary Care Provider [phone] Note from [facility],non-owned Affiliates and Associated Physician Practices is amultiple site organization consisting of ambulatory clinics and hospital sitesin [place], [place], [place] and [place]. This disclosure is being madepursuant to the Care Everywhere program and may not contain all information available regarding this patient. Last updated 18.[facility] Allergies No known active allergies Medications * Be aware that medications may not be up to date on this document. Alwaysverify current medications with the patient. * simvastatin (ZOCOR) 40 MG tablet Take 40 mg by mouth at bedtime * hydrOXYzine pamoate (VISTARIL) 25 MG capsule Take 50 mg by mouth 2 times daily as needed for Anxiety (tremors) * venlafaxine XR 24hr (EFFEXOR XR) 150 MG capsule Take 150 mg by mouth daily with breakfast * lamoTRIgine (LAMICTAL) 200 MG tablet Take 200 mg by mouth at bedtime * dorzolamide (TRUSOPT) 2 % ophthalmic solution(Started 09/04/2017) Instill 1 drop into both eyes 2 times daily * latanoprost (XALATAN) 0.005 % ophthalmic solution Instill 1 drop into both eyes at bedtime * acetaminophen (TYLENOL) 500 MG tablet(Started 01/10/2018) Take 2 tablets by mouth every 8 hours Maximum allowable Acetaminophen amount = 4 Grams (4000 mg) / 24 hours. 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, left 09/25/2018 Primary osteoarthritis of left knee 01/07/2018 Social History Tobacco Use Types Packs/Day Years Used Date Smoking Tobacco: Every Day Cigarettes Smokeless Tobacco: Never Tobacco Cessation:Ready to Q uit: No; Counseling Given: Yes Alcohol Use Standard Drinks/Week Comments No 0 (1 standard drink = 0.6 oz pur e alcohol) Sex and Gender Information Value Date Recorded Sex Assigned at Not on file Gender Identity Not on file Sexual Orientation Not on file Last Filed Vital Signs Vital Sign Reading Time Taken Comments Blood Pressure 153/84 01/15/2019 10:43 AM CDT Pulse 70 01/15/2019 10:43 AM CDT Temperature 37.1 ??C (98.7 ??F) 01/15/2019 10:43 AM C DT Respiratory Rate 16 01/15/2019 10:43 AM CDT Oxygen Saturation 98% 01/15/2019 10:43 AM CDT Inhaled Oxygen Concentration - - Weight 103 kg (227 lb) 04/02/2019 1:43 PM CDT Height 177.8 cm (5' 10 ) 04/02/2019 1:43 PM CDT Body Mass Index 32.57 04/02/2019 1:43 PM CDT Medical Devices Implanted Type Area Sales Representative Wire Rope Device Identifier Shelf Expiration Date Model / Serial / Lot Cmnt Bone Plc R 40gm Grn Implanted:Qty: 2 on 01/07/2018 by Lauro Oconnor MD at [facility] Left: Knee [employer] 06/06/2022 [id number] / / [id number] Cmnt Bone Plc R 40gm Grn Implanted:Qty: 1 on 01/07/2018 by Lauro Oconnor MD at [facility] Left: Knee [employer] 06/06/2022 [id number] / / [id number] Cmpnt Ptlr 35mm Persona Alply Kn Lf Implanted:Qty: 1 on 01/07/2018 by Lauro Oconnor MD at [facility] Left: Knee [employer] 10/06/2025 [id number] / / [id number] Cmpnt Fem Kn Lt 7 Std Cmnt Post Stab Implanted:Qty: 1 on 01/07/2018 by Lauro Oconnor MD at [facility] Left: Knee [employer] 06/06/2027 [id number] / / [id number] Bsplt Tib Persona 5d G Kn Lt Cmnt Stm Implanted:Qty: 1 on 01/07/2018 by Lauro Oconnor MD at [facility] Left: Knee [employer] 07/06/2027 [id number] / / [id number] Srfc Artc 10mm 6-9 Gh Kn Lt Vivacit-E Implanted:Qty: 1 on 01/07/2018 by Lauro Oconnor MD at [facility] Left: Knee [employer] 06/06/2021 [id number] / / [id number] Srfc Artc 10mm 6-9 Gh Kn Lt Vivacit-E Implanted:Qty: 1 on 01/13/2019 by Lamont Banks MD at [facility] Left: Knee [employer] 01/04/2023 [id number] / / [id number] Procedures * XR KNEE LEFT 3VW(Performed 01/29/2019) Performed for S/P revision of total knee, left * IMAGING/RADIOLOGY/XRAY RESULTS ORDER(Performed 01/20/2019) * CARDIAC RHYTHM STRIP ORDER(Performed 01/20/2019) * HGB HCT PANEL(Performed 01/15/2019) * BASIC METABOLIC PANEL (CALCIUM TOTAL)(Performed 01/15/2019) * HGB HCT PANEL(Performed 01/14/2019) * PATHOLOGY TISSUE EXAM (STL)(Performed 01/13/2019) Performed for Diagnosis unknown * CULTURE FUNGUS OTHER+FUNGUS SMEAR(Performed 01/13/2019) Performed for Diagnosis unknown * CULTURE TISSUE+GRAM STAIN(Performed 01/13/2019) Performed for Diagnosis unknown * CULTURE AFB+SMEAR(Performed 01/13/2019) Performed for Diagnosis unknown * CULTURE ANAEROBE(Performed 01/13/2019) Performed for Diagnosis unknown * CULTURE FUNGUS OTHER+FUNGUS SMEAR(Performed 01/13/2019) Performed for Diagnosis unknown * CULTURE TISSUE+GRAM STAIN(Performed 01/13/2019) Performed for Diagnosis unknown * CULTURE AFB+SMEAR(Performed 01/13/2019) Performed for Diagnosis unknown * CULTURE ANAEROBE(Performed 01/13/2019) Performed for Diagnosis unknown * CULTURE FUNGUS OTHER+FUNGUS SMEAR(Performed 01/13/2019) Performed for Diagnosis unknown * CULTURE TISSUE+GRAM STAIN(Performed 01/13/2019) Performed for Diagnosis unknown * CULTURE AFB+SMEAR(Performed 01/13/2019) Performed for Diagnosis unknown * CULTURE ANAEROBE(Performed 01/13/2019) Performed for Diagnosis unknown * ARTHROPLASTY TOTAL KNEE REVISION(Performed 01/13/2019) Performed for T84.00A * PERIPHERAL BLOCK(Performed 01/13/2019) * CULTURE MRSA(Performed 01/07/2019) Performed for Instability of internal right knee prosthesis, initial encounter ([facility]), Pre-op testing * XR CHEST 2VW(Performed 01/07/2019) Performed for Instability of internal right knee prosthesis, initial encounter ([facility]), Pre-op testing * EKG 12-LEAD(Performed 01/07/2019) Performed for Instability of internal right knee prosthesis, initial encounter ([facility]), Pre-op testing * CBC W AUTO DIFFERENTIAL(Performed 01/07/2019) Performed for Instability of internal right knee prosthesis, initial encounter ([facility]), Pre-op testing * BASIC METABOLIC PANEL (CALCIUM TOTAL)(Performed 01/07/2019) Performed for Instability of internal right knee prosthesis, initial encounter ([facility]), Pre-op testing * XR KNEE LEFT 3VW(Performed 01/07/2019) Performed for History of left knee replacement * PATHOLOGY SMEAR BODY FLUID(Performed 11/20/2018) Performed for S/P total knee replacement, left, Knee effusion, left * DIFFERENTIAL MANUAL FLUID(Performed 11/20/2018) Performed for S/P total knee replacement, left, Knee effusion, left * CELL COUNT W DIFFERENTIAL FLUID(Performed 11/20/2018) Performed for S/P total knee replacement, left, Knee effusion, left * CRYSTAL IDENTIFICATION FLUID(Performed 11/20/2018) Performed for S/P total knee replacement, left, Knee effusion, left * CULTURE ANAEROBE(Performed 11/20/2018) Performed for S/P total knee replacement, left, Knee effusion, left * CULTURE FLUID+GRAM STAIN(Performed 11/20/2018) Performed for S/P total knee replacement, left, Knee effusion, left * CULTURE FLUID+GRAM STAIN+ANAEROBE (BEAKER)(Performed 11/20/2018) Performed for S/P total knee replacement, left, Knee effusion, left * XR KNEE LEFT 2VW OR LESS(Performed 11/20/2018) Performed for S/P total knee replacement, left * XR KNEE LEFT 3VW(Performed 09/17/2018) Performed for S/P total knee replacement, left * IMAGING/RADIOLOGY/XRAY RESULTS ORDER(Performed 03/20/2018) * IMAGING/RADIOLOGY/XRAY RESULTS ORDER(Performed 01/30/2018) * IMAGING/RADIOLOGY/XRAY RESULTS ORDER(Performed 01/14/2018) * CARDIAC EKG ORDER(Performed 01/14/2018) * CARDIAC RHYTHM STRIP ORDER(Performed 01/14/2018) * LAB RESULTS ORDER(Performed 01/14/2018) * HGB HCT PANEL(Performed 01/09/2018) Performed for Primary osteoarthritis of left knee * BASIC METABOLIC PANEL (CALCIUM TOTAL)(Performed 01/09/2018) Performed for Primary osteoarthritis of left knee * HGB HCT PANEL(Performed 01/08/2018) Performed for Primary osteoarthritis of left knee * XR KNEE LEFT 2VW OR LESS(Performed 01/07/2018) Performed for Primary osteoarthritis of left knee * PATHOLOGY TISSUE EXAM (STL)(Performed 01/07/2018) Performed for Diagnosis unknown * ARTHROPLASTY TOTAL KNEE(Performed 01/07/2018) Performed for M17.12 * PERIPHERAL BLOCK(Performed 01/07/2018) Results * XR KNEE LEFT 3VW (01/29/2019 8:05 AM CDT) Only the most recent of3 resultswithin the time period is included. Anatomical Region Laterality Modality Lower Extremity Radiographic Tanika ging Narrative 01/29/2019 8:50 AM CDT Lillian Nicholas ? 01/29/2019 ??8:50 AM Please see progress note for results. Lamont Banks MD DIAGNOSTIC IMAGING O RDERABLES * IMAGING/RADIOLOGY/XRAY RESULTS ORDER (01/20/2019 1:27 AM CDT) Only the most recent of4 resultswithin the time period is included. Anatomical Region Laterality Modality Other Narrative 01/20/2019 1:27 AM CDT Ordered by an unspecified provider. Scanned Document IMAGING * CARDIAC RHYTHM STRIP ORDER (01/20/2019 1:25 AM CDT) Only the most recent of2 resultswithin the time period is included. Narrative 01/20/2019 1:25 AM CDT Ordered by an unspecified provider. Scanned Document CARDIAC SERVICES ORD ERABLES * HGB HCT PANEL (01/15/2019 7:50 AM CDT) Only the most recent of4 resultswithin the time period is included. Hemoglobin 12.4 12.0 - 17.6 gm/dL 01/15/2019 8:18 AM CDT [facility] Hematocrit 38.7 35.2 - 51.7 % 01/15/2019 8:18 AM CDT [facility] Blood BLOOD SPECIMEN / Unknown Lab Venipuncture / Unknown 01/15/2019 7:50 AM CDT 01/15/2019 8:08 AM CDT Lamont Banks MD LAB - HEMATOLOGY ORD ERABLES [facility] [address] [place] [id number] * BASIC METABOLIC PANEL (CALCIUM TOTAL) (01/15/2019 7:50 AM CDT) Only the most recent of3 resultswithin the time period is included. Glucose 82 74 - 106 mg/dL 01/15/2019 8:34 AM CDT [facility] Sodium 141 136 - 145 mmol/L 01/15/2019 8:34 AM CDT [facility] Potassium 4.3 3.5 - 5.1 mmol/L 01/15/2019 8:34 AM CDT [facility] Chloride 105 98 - 107 mmol/L 01/15/2019 8:34 AM CDT [facility] CO2 28 23 - 31 mmol/L 01/15/2019 8:34 AM CDT [facility] Calcium 8.7 8.4 - 10.2 mg/dL 01/15/2019 8:34 AM CDT [facility] Anion Gap 8 8 - 16 mmol/L 01/15/2019 8:34 AM CDT [facility] BUN 14 8.4 - 25.7 mg/dL 01/15/2019 8:34 AM CDT [facility] Creatinine 0.98 0.73 - 1.18 mg/dL 01/15/2019 8:34 AM CDT [facility] eGFR by MDRD >60 >60 mL/min/1.7 3m2 01/15/2019 8:34 AM CDT [facility] eGFR by MDRD >60 >60 mL/min/1.7 3m2 01/15/2019 8:34 AM CDT [facility] Blood BLOOD SPECIMEN / Unknown Lab Venipuncture / Unknown 01/15/2019 7:50 AM CDT 01/15/2019 8:08 AM CDT Lamont Banks MD LAB [facility] Organization Address City/State/ZIP Co de Phone Number [facility] [address] [address] * GROSS + MICRO EXAM (STL) (01/13/2019 10:27 AM CDT) Only the most recent of2 resultswithin the time period is included. Case Report Surgical Pathology Report ? Case: [id number] ? Authorizing Provider: ??Lamont Banks MD ? Collected: ? 01/13/2019 10:27 AM ? Ordering Location: ? [facility] ? Received: ?01/13/2019 02:20 PM ? Pathologist: ? Erika Covarrubias MD ? Specimen: ?Tissue, LEFT KNEE SYNOVIUM ? 01/14/2019 4:11 PM [facility] Final Diagnosis Synovium, left knee, excision: - Fibrosis and chronic inflammation KL/ns 01/14/2019 4:11 PM [facility] Gross Description Received in a container of formalin labeled Luis Antonio Jensen, and left knee synovium is an irregular piece of green-yellow focally necrotic tissue measuring 4.2 x 3.7 x 3 cm. Sectioning displays a firm purple-brown and slightly green-yellow necrotic cut surface. Federal Agent sections are submitted in cassette A1. JS/rtc 01/14/2019 4:11 PM [facility] Microscopic Description Histologic sections show synovial tissue with fibrosis and focal chronic inflammation. Significant active inflammation is not identified. There is no evidence of malignancy. KL/ns 01/14/2019 4:11 PM [facility] Disclaimer All histochemical and/or immunohistochemical results are interpreted with controls that demonstrate appropriate staining reactions before reporting results. Note on use of immunocytochemistry reagents: This test was developed and its performance characteristic determined by [facility], Department of Laboratory Medicine. It has not been cleared or approved by the U.S. Food and Drug Administration (FDA). The FDA has determined that such clearance or approval is not necessary. The test is used for clinical purpose. It should not be regarded as investigational or for research. This laboratory is certified to perform high complexity testing. 01/14/2019 4:11 PM CDT [facility] Embedded Images 01/14/2019 4:11 PM CDT [facility] Pathology/Cytolo gy TISSUE SPECIMEN / Unknown 01/13/2019 10:27 AM CDT 01/13/2019 2:20 PM CDT Lamont Banks MD LAB - PATHOLOGY/CYTO LOGY ORDERABLES Performing Organization Address City/[facility]/ZIP Co de Phone Number [facility] [address] [place] [address] * CULTURE FUNGUS OTHER+FUNGUS SMEAR (01/13/2019 10:00 AM CDT) Only the most recent of3 resultswithin the time period is included. Culture No fungus isolated DAYNE 02/09/2019 8:31 AM CDT [facility] Fungus Smear No yeast or hyphae seen 02/09/2019 8:31 AM CDT [facility] Microbiology ENTIRE KNEE REGION / Unknown 01/13/2019 10:00 AM CDT 01/13/2019 11:37 AM CDT Narrative [facility] - 02/09/2019 8:31 AM CDT Surgical Description: Left Knee Joint #2 Lamont Banks MD LAB - MICROBIOLOGY O RDERABLES Performing Organization Address City/[facility] Co de Phone Number [facility] [address] [place] [address] [phone] * CULTURE TISSUE+GRAM STAIN (01/13/2019 10:00 AM CDT) Only the most recent of3 resultswithin the time period is included. Culture No growth DAYNE 01/20/2019 3:37 AM CDT [facility] Gram Stain Moderate Polymorphonuclear cells 01/20/2019 3:37 AM CDT [facility] Gram Stain No organisms seen 019 3:37 AM CDT [facility] Microbiology ENTIRE KNEE REGION / Unknown 01/13/2019 10:00 AM CDT 01/13/2019 11:38 AM CDT Narrative [facility] - 01/20/2019 3:37 AM CDT Surgical Description: Left Knee Joint #2 Lamont Banks MD LAB - MICROBIOLOGY O WILLIAM Performing Organization Address City/[facility]/ZIP Co de Phone Number [facility] [address] [place] [address], [facility] [phone] * CULTURE AFB+SMEAR (01/13/2019 10:00 AM CDT) Only the most recent of3 resultswithin the time period is included. Culture No acid-fast bacillus isolated 02/23/2019 10:53 AM CDT [facility] AFB Smear No acid-fast bacilli seen 02/23/2019 10:53 AM CDT [facility] Microbiology ENTIRE KNEE REGION / Unknown 01/13/2019 10:00 AM CDT 01/13/2019 11:38 AM CDT Narrative [facility] - 02/23/2019 10:53 AM CDT Surgical Description: Left Knee Joint #2 Lamont Banks MD LAB - MICROBIOLOGY O WILLIAM Performing Organization Address [facility] de Phone Number [facility] [address] [place] [address], [facility] [phone] * CULTURE ANAEROBE (01/13/2019 10:00 AM CDT) Only the most recent of4 resultswithin the time period is included. Culture No anaerobic organisms isolated DAYNE 01/19/2019 2:06 PM CDT [facility] Microbiology ENTIRE KNEE REGION / Unknown 01/13/2019 10:00 AM CDT 01/13/2019 11:37 AM CDT Narrative [facility] - 01/19/2019 2:06 PM CDT Surgical Description: Left Knee Joint #2 Lamont Banks MD LAB - MICROBIOLOGY O WILLIAM Performing Organization Address City/[facility]/ZIP Co de Phone Number [facility] [address] [place] [address], [facility] [phone] * CULTURE MRSA (01/07/2019 11:40 AM CDT) Culture Negative for methicillin-resist ant Staphylococcus aureus (MRSA) DAYNE 01/08/2019 2:33 PM CDT [facility] Microbiology SPECIMEN FROM NASAL FOSSAE / Unknown Collection / Unknown 01/07/2019 11:40 AM CDT 01/07/2019 11:40 AM CDT Lamont Banks MD LAB - MICROBIOLOGY O RDVAHID [facility] [address] [place] [address], [facility] [phone] * XR CHEST 2VW (01/07/2019 11:21 AM CDT) Anatomical Region Laterality Modality Chest Radiographic Tanika ging 01/07/2019 2:07 PM CDT Impressions 01/07/2019 2:32 PM CDT No acute pulmonary disease. Edited by Preeti Yoon on 01/07/2019 2:23 PM Reading Radiologist: Diego Umaña MD on 01/07/2019 at 2:32 PM Narrative 01/07/2019 2:32 PM CDT CHEST TWO VIEWS INDICATION: Cough and preop. FINDINGS: Two views of the chest without prior show no consolidation, pleural effusion or pneumothorax. The heart size is normal. Procedure Note Diego Umaña MD - 01/07/2019 CHEST TWO VIEWS INDICATION: Cough and preop. FINDINGS: Two views of the chest without prior show no consolidation, pleural effusion or pneumothorax. The heart size is normal. IMPRESSION No acute pulmonary disease. Edited by Preeti Yoon on 01/07/2019 2:23 PM Reading Radiologist: Diego Umaña MD on 01/07/2019 at 2:32 PM Lamont Banks MD DIAGNOSTIC IMAGING O RDVAHID * EKG 12-LEAD (01/07/2019 11:10 AM CDT) Ventricular Rate 69 BPM [facility] Atrial Rate 69 BPM [facility] P-R Interval 154 ms [facility] QRS Duration ms 80 ms [facility] Q-T Interval ms 418 ms [facility] QTC Calculation (Bezet) 447 ms [facility] Calculated P [place] 68 degrees [facility] MUSE Calculated R [place] 48 degrees [facility] MUSE Calculated T [place] 75 degrees [facility] M[facility] Interpretation EKG Normal sinus rhythm WITH IRBBB PATTERN NON SPECIFIC ST AND T CHANGES No previous ECGs available Confirmed by MD RICHARD, DEA Pitts ([id number]) on 01/08/2019 7:36:58 AM [facility] M[facility] 01/07/2019 11:1 0 AM CDT 01/08/2019 7:36 AM CDT Lamont Banks MD ECG ORDERABLES [facility] * CBC WITH DIFFERENTIAL (01/07/2019 10:37 AM CDT) WBC 7.5 4.4 - 10.7 x10E9/L [facility] INSURANCE BILL RBC 5.08 3.80 - 5.40 x10E12/L [facility] INSURANCE BILL Hemoglobin 14.6 12.0 - 17.6 gm/dL [facility] INSURANCE BILL Hematocrit 44.7 35.2 - 51.7 % [facility] INSURANCE BILL MCV 88.0 80.7 - 98.3 fl [facility] INSURANCE BILL MCH 28.7 26.7 - 34.0 pg [facility] INSURANCE BILL MCHC 32.7 30.8 - 35.9 gm/dL [facility] INSURANCE BILL RDW 13.1 12.1 - 14.9 % [facility] INSURANCE BILL Platelet Count 349 153 - 416 x10E9/L [facility] INSURANCE BILL Comment:MPV FL BLOOD (SSM) 9 .6 fl 9.4-12.9 Granulocytes % 62.5 44.0 - 73.0 % [facility] INSURANCE BILL Lymphocytes % 20.2 20.0 - 43.0 % [facility] INSURANCE BILL Monocytes % 10.7 5.0 - 13.0 % [facility] INSURANCE BILL Eosinophils % 5.6 0.0 - 6.0 % [facility] INSURANCE BILL Basophils % 0.7 0.0 - 2.0 % [facility] INSURANCE BILL Granulocytes Absolute 4.67 2.01 - 7.14 x10E9/L [facility] INSURANCE BILL Lymphocytes Absolute 1.51 1.07 - 3.94 x10E9/L [facility] INSURANCE BILL Monocytes Absolute 0.80 0.26 - 1.07 x10E9/L [facility] INSURANCE BILL Eosinophils Absolute 0.42 0 - 0.47 x10E9/L [facility] INSURANCE BILL Basophils Absolute 0.05 0 - 0.08 x10E9/L [facility] INSURANCE BILL Immature Granulocytes 0.3 0 - 1 % [facility] INSURANCE BILL Immature Granulocytes Absolute 0.02 0.00 - 0.06 x10E9/L [facility] INSURANCE BILL nRBC 0 /100 WBC [facility] INSURANCE BILL Blood BLOOD SPECIMEN / Unknown 01/07/2019 10:37 AM CDT 01/07/2019 Narrative Resulting Agency Comment [place] [id number] [facility] ??Minh ROCA [phone] Lamont Banks MD LAB - HEMATOLOGY [facility] INSURANCE BILL [address] [place] [address] * PATHOLOGY SMEAR BODY FLUID (11/20/2018 10:30 AM PATIENT REGISTRATION REPRESENTATIVE) Case Report Pathologist Interpretation Report ? Case: [id number] ? Authorizing Provider: ??Israel Kent MD ? Collected: ? 11/20/2018 10:30 AM ? Ordering Location: ? [facility] ?? Received: ?11/20/2018 01:01 PM ? Pathologist: ? Frances Wei MD ? Specimen: ?Synovial Fluid ? 11/21/2018 7:53 AM PATIENT REGISTRATION REPRESENTATIVE [facility] Smear Review Interpretation -- Negative for malignancy 11/21/2018 7:53 AM [facility] Fluid SYNOVIAL FLUID / Unknown Collection / Unknown 11/20/2018 10:30 AM PATIENT REGISTRATION REPRESENTATIVE 11/20/2018 1:01 PM PATIENT REGISTRATION REPRESENTATIVE Israel Kent MD LAB - PATHOLOGY/CYTO LOGY ORDERABLES Performing Organization Address [facility] de Phone Number [facility] [id number] [place] [address] * (ABNORMAL) DIFFERENTIAL MANUAL FLUID (11/20/2018 10:30 AM PATIENT REGISTRATION REPRESENTATIVE) Total Nucleated Cells Fluid 2,360(H) 0 - 5 x10E6/L 11/24/2018 8:55 AM [facility] Neutrophils % Fluid 55 % 11/24/2018 8:55 AM [facility] Lymphocytes % Fluid 5 % 11/24/2018 8:55 AM [facility] Monocytes % Fluid 34 % 11/24/2018 8:55 AM [facility] Other Cell Fluid 6 % 11/24/2018 8:55 AM [facility] Cells Counted Fluid 100 11/24/2018 8:55 AM [facility] Path Review Hematology Slide sent for Path review 11/24/2018 8:55 AM [facility] Fluid SYNOVIAL FLUID / Unknown Collection / Unknown 11/20/2018 10:30 AM PATIENT REGISTRATION REPRESENTATIVE 11/20/2018 11:33 AM PATIENT REGISTRATION REPRESENTATIVE Israel Kent MD LAB - BODY FLUID ORD ERABLES Performing Organization Address [facility] de Phone Number [facility] [address] [place] [address] * CULTURE FLUID+GRAM STAIN (11/20/2018 10:30 AM PATIENT REGISTRATION REPRESENTATIVE) Culture No growth DAYNE 11/27/2018 4:06 AM [facility] Gram Stain Rare Polymorphonuclear cells 11/27/2018 4:06 AM [facility] MICROBIOLOGY Gram Stain No organisms seen 019 4:06 AM [facility] MICROBIOLOGY Gram Stain Light Red blood cells 11/27/2018 4:06 AM [facility] MICROBIOLOGY Fluid SYNOVIAL FLUID / Unknown Collection / Unknown 11/20/2018 10:30 AM PATIENT REGISTRATION REPRESENTATIVE 11/20/2018 11:32 AM PATIENT REGISTRATION REPRESENTATIVE Israel Kent MD LAB - MICROBIOLOGY O RDERABLES [facility] MICROBIOLOGY [address] [place] [address], [facility] [phone] * CRYSTAL IDENTIFICATION FLUID (11/20/2018 10:30 AM PATIENT REGISTRATION REPRESENTATIVE) Fluid Type Synovial 11/20/2018 12:36 PM PATIENT REGISTRATION REPRESENTATIVE [facility] Crystals Fluid None None 11/20/2018 12:36 PM PATIENT REGISTRATION REPRESENTATIVE [facility] Fluid SYNOVIAL FLUID / Unknown Collection / Unknown 11/20/2018 10:30 AM PATIENT REGISTRATION REPRESENTATIVE 11/20/2018 11:33 AM PATIENT REGISTRATION REPRESENTATIVE Israel Kent MD LAB - BODY FLUID ORD ERABLES [facility] [address] [place] [address] * CELL COUNT W DIFFERENTIAL FLUID (11/20/2018 10:30 AM PATIENT REGISTRATION REPRESENTATIVE) Fluid Type Synovial 11/20/2018 12:17 PM PATIENT REGISTRATION REPRESENTATIVE [facility] Character Fluid Grossly Bloody 11/20/2018 12:17 PM PATIENT REGISTRATION REPRESENTATIVE [facility] Color Fluid Grossly Bloody 11/20/2018 12:17 PM PATIENT REGISTRATION REPRESENTATIVE [facility] Total Nucleated Cells Fluid 2,360 x10E6/L 11/20/2018 12:17 PM PATIENT REGISTRATION REPRESENTATIVE [facility] RBC Fluid 160,000 x10E6/L 11/20/2018 12:17 PM PATIENT REGISTRATION REPRESENTATIVE [facility] Comment Fluid Manual Diff to follow 11/20/2018 12:17 PM PATIENT REGISTRATION REPRESENTATIVE [facility] Fluid SYNOVIAL FLUID / Unknown Collection / Unknown 11/20/2018 10:30 AM PATIENT REGISTRATION REPRESENTATIVE 11/20/2018 11:33 AM PATIENT REGISTRATION REPRESENTATIVE Israel Kent MD LAB - BODY FLUID ORD ERABLES [facility] [address] [place] [address] * XR KNEE LEFT 2VW OR LESS (11/20/2018 10:00 AM PATIENT REGISTRATION REPRESENTATIVE) Only the most recent of2 resultswithin the time period is included. Anatomical Region Laterality Modality Lower Extremity Computed Radiogr aphy Narrative 11/20/2018 11:01 AM PATIENT REGISTRATION REPRESENTATIVE Shital Tapia ? 11/20/2018 11:01 AM Please see progress notes for result. Israel Kent MD DIAGNOSTIC IMAGING O RDERABLES * LAB RESULTS ORDER (01/14/2018 2:38 AM CDT) Narrative 01/14/2018 2:38 AM CDT Ordered by an unspecified provider. Scanned Document LAB - THERAPEUTIC DR PONCE MONITORING ORDERABLES * CARDIAC EKG ORDER (01/14/2018 2:38 AM CDT) Narrative 01/14/2018 2:38 AM CDT Ordered by an unspecified provider. Scanned Document CARDIAC SERVICES ORD ERABLES Care Teams Hides Inspector Relationship Specialty Start Date End Date Bryan Muse MD [address] [place] [address] PCP - General 10/26/21 Lauro Oconnor MD [address] [place] [address] Orthopedist Orthopedic Surgery 07/01/17
--- OUTSIDE RECORDS SUMMARY | 2024-10-29 08:40 | XMS_ITS | Continuity of Care Document ---
Author Organization [facility] Address [address] [place] [address] Phone Care Team Providers Care Director Of Market Intelligence Name Role Phone Elder GASTON, Lionle Unavailable Unavailable Procedures Procedure Date CT, Thorax, Low Dose, Lung CA Screening, W/O Contrast 3D RENDERING, WITH INTERPRET ATION AND REPORTING OF CT MRI OR US WITH IMAGE POSTP Advance Directives Directive Yes / No Effective Date File Name No Information Encounters Encounter Description Practice Location Reason(s) For Visit Diagnoses Date Provider Providers Copied on Encounter [facility], [address], [place], [place], [id number], [place] tel:[phone] [facility] No Information Elder Flowers. [address] , [place], [place], [address], [place]. tel:[phone] Referring Provider: Pierce Pino, [address], [place], [address]. tel:[phone] Family History Family Member Type Diagnosis Age At Onset No Information Payers Payer name Insurance type Covered constitution party ID Authoriza tion(s) [facility] [id number] Social History Type Description Quantity Date Captured Comments Sex Male Smoking Status No Information Chief Complaint And Reason For Visit No Information Reason For Referral Reason For Referral No Information History Of Present Illness Encounter Date Complaint History Of Prese nt Illness No Information Functional Status Date Functional Assessmen t No Information Instructions Date Instruction Additional Infor mation No Information Assessments Type Assessment Date No Information Patient Care Teams Name Effective Dates (start - stop) Status Members No Information
--- OUTSIDE RECORDS SUMMARY | 2024-10-29 08:40 | XMS_ITS ---
Author Organization [facility] [employer] Address [address] [facility] [address] [place] [address] Care Team Providers Care Accounts Collector Name Role Phone Almaz GASTON, Bryan Primary Care Provider Rolly Fiore Unavailable [phone] Huber Montalvo Unavailable [phone] REASON FOR VISIT I was thinking about [...] OF BREATH. Inhalation for 24 Days Active Dorzolamide HCl 2 % Ophthalmic for 37 Days Active Fluticasone Propionate HFA 220 MCG/ACT INHALE 1 PUFF BY MOUTH EVERY 12 HOURS Inhalation for 30 Days Active Propranolol HCl ER 60 MG TAKE 1 CAPSULE BY MOUTH EVERY DAY Oral for 90 Days Active Venlafaxine HCl ER 150 MG 1 capsule ever y morning Oral once a day for 90 days Active lamoTRIgine 200 MG 1 tablet at bedtime Oral Once a day for 90 days Active Simvastatin 40 MG Oral for 90 Days Active Social History Tobacco Use: Social History Observation Description Date Details (start date - stop date) Never Smoker NA - NA Sex Assigned At : Social History Observation Description Sex Assigned At Male Tobacco Control (Standard) Question Answer Notes Tobacco use: Nonsmoker AUDIT-C (Standard) Question Answer Notes Did you have a drink containing alcohol in the p ast year? No Points 0 Interpretation Negative Encounters Encounter Location Date Provider Diagnosis [facility] [employer] [address] [place] [address] 10/22/2024 Huber Montalvo Bipolar 2 disorder F31.81 and Generalized anxiety disorder F41.1 Assessments Encounter Date Diagnosis (ICD Code) Assessment Notes Treatment Notes Treatment Clinical Notes Section Notes 10/22/2024 Bipolar 2 disorder (ICD-10 - F31.81) 74 [...] denied for mental illness. Client born in [facility] and grew up [place], [place]. He is the father of three children. Relationship with children is good but stated that daughter is his favorite. Relationship with parents was not that good and as he gotten stated he did not careif parents live or . 10/22/2024 Generalized anxiety disorder (ICD-10 - F41.1) 74 [...] denied for mental illness. Client born in [facility] and grew up [place], [place]. He is the father of three children. Relationship with children is good but stated that daughter is his favorite. Relationship with parents was not that good and as he gotten stated he did not careif parents live or . 10/22/2024 Other Client participated in individual psychotherapy(CB T/Supportive) related to his hx of mood instability and anxiety. Based on today's session continued psychotherapy is recommended with no changes to treatment plan. Client presented to session well groomed and fully oriented with no risk of harm to self or others. Client verbal and engaged through out session. Reported upon presentation that he has been doing pretty good since last seen on 10.08.2024. Added that not much is new in his life since last session. Upset that he had to cancel visit with his daughter due to bad weather. Excited that she is going on a vacation later this month. He and getting along with no complaints. Client spoke at length about missing work and being busy. However regrets that he did not spend more time with his children while they were growing up. Conceded that he was a workaholic and valued making money above all else. Client provided supportive therapy. Next session in two weeks. 74 year [...] denied for mental illness. Client born in [facility] and grew up [place], [place]. He is the father of three children. Relationship with children is good but stated that daughter is his favorite. Relationship with parents was not that good and as he gotten stated he did not careif parents live or . Plan Of Treatment Next Appt Details Follow Up: 2 Weeks, Reason: Provider Name:Rolly Silva , 11/16/2024 11:00:00 AM, [address], [facility] [address], [place], [address], Progress Notes * PATRICK PENNINGTON EDOB:1950 (74 yo M)Acc No.[id number]:10/22/2024 Patient:?PATRICK PENNINGTON Provider:?Huber Montalvo LCPC :1950???Age:74 Y???Sex:Male Jermain e:10/22/2024 Address:[address] [place], [place] [id number] Pcp:Bryan Muse MD Data: * Time Tracker: * Date Start Time End Time Duration User Type Captured By Mode Notes 10/22/2024 10:00 AM 10:47 AM 00:47:12 Therapist Huber Montalvo Timer * Chief Complaints: * ??? I was thinking about rosemarie lambert my , hx of anxiety and Bipolar Depression screening positive * HPI: ???Depression screening:?PHQ-9?Little interest or pleasure in doing [...] when and if necessary ?Suicide Risk Assessment Performed?10/22/2024 ?Additional Evaluation for Depression?Psychiatric interview and evaluation ?Name of the standardized tool used for adult depression screening:?Patient Health Questionnaire (PHQ-9) ? Referral source ?self-referral .?Anger management ?with aggressive [...] memory concerns reports. .?Appetite ?Increased appetite?.?Legal Involvement:?Current Biomedical Equipment Tech / vp training ?no .?Current probation / parole ?no .?History of arrests ?no .?History of incarcerations no .?Legal history ?no .?Pending charges ?no . ???Depression Screening:?ELVA-7 (2018 Edition)?Feeling nervous, anxious, or on edge?Several days ?Not being able to stop or control worrying?Several days ?Worrying too much about different things?Several days ?Trouble relaxing?Several days ?Being so restless that it is hard to sit still?Not at all ?Becoming easily annoyed or irritable?Not at all ?Feeling afraid as if something awful might happen?Not at all ?Total ELVA-7 Score?4 ?Interpretation of Total?(0 to 4) No Anxiety * Family History:?Father: dece ased, Alcohol abuse .?Mother: , Anxiety disorder .?2 brother(s) , 1 sister(s) . 2 son(s) , 1 daughter(s) . .? Relationship with children is good; oldest son is 36, youngest is 30 and daughter is 28; Relationship with parents was okay while they were alive; but relationship got worse older her got, I could have cared less if they lived or . * Social History:?Tobacco Use:?Tobacco Control (Standard)?Tobacco use:?Nonsmoker ???Migrated Social History:?Migrated Social History: Alcohol Intake: None 10/31/2022,Tobacco Years: Former smoker 06/03/2023. ???Drug/Alcohol:?AUDIT-C (Standard)?Did you have a drink containing alcohol in the past year??No ?Points?0 ?Interpretation?Negative * Medications:?TakinglamoTRIgi ne 200 MG Tablet 1 [...] denied for mental illness. Client born in [facility] and grew up [place], [place]. He is the father of three children. Relationship with children is good but stated that daughter is his favorite. Relationship with parents was not that good and as he gotten stated he did not careif parents live or . Plan: * Treatment: * Procedure Codes:?35881 PSYCH OTHERAPY W/PATIENT 45 [id number] BEHAV ASSMT W/SCORE & DOCD/STAND INSTRUMENT * Follow Up:?2 Weeks * Billing Information: * Visit Code:? * Procedure Codes:? 32041 PSYCHOTHERAPY W/PATIENT 45 MINUTES. 77252 BEHAV ASSMT W/SCORE & DOCD/STAND INSTRUMENT. * DENTIAL FINISH CARPENTER Sign off status: Completed Signatures: No Ad Hoc Signature Added true * Provider:?Huber Montalvo LCPC Date:? Generated for Robert chavez/Fannie/Lurdes on:?10/29/2024 08:40 AM RESIDENTIAL FINISH CARPENTER History and Physical Notes * HPI (History of Present Illness) Category Sub-Category Detail Notes Category Not es Depression screening PHQ-9 Little inte rest or pleasure in doing things: Several days Referral source self-referral . Anger management with aggressive behaviors(hx [...] Appetite Increased appetite . Legal Involvement: Current Biomedical Equipment Tech / vp training no . Current probation / parole no . History of arrests no . History of incarcerations no . Legal history no . Pending charges no . Feeling down, depressed, or hopeless: Se veral [...] Screening Findings: P ositve Follow-Up for Depression: [facility] treatment assessment, Patient follow-up to return when and if necessary Suicide Risk Assessment Performed: 10/22 Additional Evaluation for De pression: Psychiatric interview and evaluation Name of the standardized too l used for adult depression screening:: Patient Health Questionnaire (PHQ-9) Depression Screening ELVA-7 (2018 Edition) Feelin g nervous, anxious, or on edge: Several days Not being able to stop or control worryi ng: Several days Worrying too much about different things : Several days Trouble relaxing: Several days Being so restless that it is hard to sit still: Not at all Becoming easily annoyed or irritable: No t at all Feeling afraid as if something awful moshe ht happen: Not at all Total EVLA-7 Score: 4 Interpretation of Total: (0 to 4) No Anx iety
--- OUTSIDE RECORDS SUMMARY | 2024-10-29 08:40 | XMS_ITS | Encounter Summary ---
Author Organization [facility] Address [address] [place] [address] Care Team Providers Care It Investment/Portfolio Manager Name Role Phone Lauro Oconnor MD Unavailable [phone] Bryan Muse MD Primary Care Provider [phone] Encounter Details Date Type Department Care Team (Late st Contact Info) Description 08/14/2019 [facility] Outpatient Visit [facility] [address] [place] [address] [address] [place], [place] [id number] Lamont Banks MD [address] [place] [address] [address] [place] [id number] Social History Tobacco Use Types Packs/Day Years Used Date Smoking Tobacco: Every Day Cigarettes Smokeless Tobacco: Never Alcohol Use Standard Drinks/Week Comments No 0 (1 standard drink = 0.6 oz pur e alcohol) Sex and Gender Information Value Date Recorded Sex Assigned at Not on file Gender Identity Not on file Sexual Orientation Not on file documented as of this encounter Functional Status Functional Status Response Date of Assess ment Is person deaf or have serious hearing difficult y? No 01/13/2019 Is person blind or have serious difficulty seein g? No 01/13/2019 Does person have serious dif ficulty walking/climbing stairs? No 01/13/2019 Does person have difficulty dressing/bathing? No 01/13/2019 Does person have difficulty doing errands alone? No 01/13/2019 Cognitive Status Response Date of Assessm ent Does person have difficulty concentrating/remembering/making decisions? No 01/13/2019 documented as of this encounter Plan of Treatment Not on file documented as of this encounter Visit Diagnoses Not on filedocumented in this encounter Care Teams It Investment/Portfolio Manager Relationship Specialty Start Date End Date Bryan Muse MD [address] [place] [phone] PCP - General 10/26/21 Lauro Oconnor MD [address] [address] Orthopedist Orthopedic Surgery 07/01/17 documented as of this encounter
--- OUTSIDE RECORDS SUMMARY | 2024-10-29 08:40 | XMS_ITS | Referral Summary ---
Author Organization [facility] [employer] Address [address] [place] [address] Care Team Providers Care Mine Engineering Supervisor Name Role Phone Lauro Oconnor MD Unavailable [phone] Bryan Muse MD Primary Care Provider [phone] Source Comments [facility] [employer],non-owned Affiliates and Associated Physician Practices is amultiple site organization consisting of ambulatory clinics and hospital sitesin [place], [place], [place] and [place]. This disclosure is being madepursuant to the Care Everywhere program and may not contain all information available regarding this patient. Last updated 18.[facility] Allergies No known active allergies Medications * Be aware that medications may not be up to date on this document. Alwaysverify current medications with the patient. Medication Sig Dispensed Refills Start Date End Date Status simvastatin (ZOCOR) 40 MG tablet Take 40 mg by mouth at bedtime Active hydrOXYzine pamoate (VISTARIL) 25 MG capsule Take 50 mg by mouth 2 times daily as needed for Anxiety (tremors) Active venlafaxine XR 24hr (EFFEXOR XR) 150 MG capsule Take 150 mg by mouth daily with breakfast Active lamoTRIgine (LAMICTAL) 200 MG tablet Take 200 mg by mouth at bedtime Active dorzolamide (TRUSOPT) 2 % ophthalmic solution Instill 1 drop into both eyes 2 times daily 09/04/2017 Active latanoprost (XALATAN) 0.005 % ophthalmic solution Instill 1 drop into both eyes at bedtime Active acetaminophen (TYLENOL) 500 MG tabletIndications:Pr imary osteoarthritis of left knee Take 2 tablets by mouth every 8 hours Maximum allowable Acetaminophen amount = 4 Grams (4000 mg) / 24 hours. 01/10/2018 Active Additional Information Patient taking differently:1,000 mg OralEVERY 8 HOURS PRN, Maximum allowable Acetaminophen amount = 4 Grams (4000 mg) / 24 hours., Reported on 01/09/2019 aspirin (ASPIRIN) 325 MG tablet Take 1 tablet by mouth 2 times daily after meals 100 tablet 2 01/15/2019 Active HYDROcodone-acetamin ophen (NORCO) 10-325 MG tablet Take 1 tablet by mouth every 4 hours as needed for Pain 42 tablet 01/15/2019 Active Additional Information Patient not taking.Reported on 04/02/2019 meloxicam (MOBIC) 7.5 MG tablet Take 1 tablet by mouth once daily 30 tablet 4 01/15/2019 Active Active Problems Problem Noted Date Diagnosed Date [...] Mass Index 32.57 04/02/2019 1:43 PM CDT Functional Status Functional Status Response Date of [...] person have difficulty concentrating/remembering/making decisions? No 01/13/2019 Plan of Treatment Not on file Medical Devices Implanted Type Area Electric Bath Attendant Device Identifier Shelf Expiration Date Model / Serial / Lot Cmnt Bone Plc R 40gm Grn Implanted:Qty: 2 on 01/07/2018 by Lauro Oconnor MD at [facility] Left: Knee [employer] 06/06/2022 [id number] / / [id number] Cmnt Bone Plc R 40gm Grn Implanted:Qty: 1 on 01/07/2018 by Lauro Oconnor MD at [facility] Left: Knee [employer] 06/06/2022 [id number] / / [id number] Cmpnt Ptlr 35mm Persona Alply Kn Lf Implanted:Qty: 1 on 01/07/2018 by Lauro Oconnor MD at [facility] Left: Knee [employer] 10/06/2025 [id number] / / [id number] Cmpnt Fem Kn Lt 7 Std Cmnt Post Stab Implanted:Qty: 1 on 01/07/2018 by Lauro Oconnor MD at [facility] Left: Knee [employer] 06/06/2027 [id number] / / [id number] Bsplt Tib Persona 5d G Kn Lt Cmnt Stm Implanted:Qty: 1 on 01/07/2018 by Lauro Oconnor MD at [facility] Left: Knee [employer] 07/06/2027 [id number] / / [id number] Srfc Artc 10mm 6-9 Gh Kn Lt Vivacit-E Implanted:Qty: 1 on 01/07/2018 by Lauro Oconnor MD at [facility] Left: Knee [employer] 06/06/2021 [id number] / / [id number] [facility] 10mm 6-9 Gh Kn Lt Vivacit-E Implanted:Qty: 1 on 01/13/2019 by Lamont Banks MD at [facility] Left: Knee [employer] 01/04/2023 [id number] / / [id number] Procedures Procedure Name Priority Date/Time Associated Diagnosis Comments BASIC METABOLIC PANEL (CALCIUM TOTAL) AM Draw 01/15/2019 7:50 AM CDT from Last 3 Months or Most Recently Relevant to Health Maintenance Results * BASIC METABOLIC PANEL (CALCIUM TOTAL) (01/15/2019 7:50 AM CDT) Glucose 82 74 - 106 mg/dL 01/15/2019 8:34 AM [facility] Sodium 141 136 - 145 mmol/L 01/15/2019 8:34 AM T [facility] Potassium 4.3 3.5 - 5.1 mmol/L 01/15/2019 8:34 AM T [facility] Chloride 105 98 - 107 mmol/L 01/15/2019 8:34 AM T [facility] CO2 28 23 - 31 mmol/L 01/15/2019 8:34 AM T [facility] Calcium 8.7 8.4 - 10.2 mg/dL 01/15/2019 8:34 AM T [facility] Anion Gap 8 8 - 16 mmol/L 01/15/2019 8:34 AM T [facility] BUN 14 8.4 - 25.7 mg/dL 01/15/2019 8:34 AM [facility] Creatinine 0.98 0.73 - 1.18 mg/dL 01/15/2019 8:34 AM T [facility] eGFR by MDRD >60 >60 mL/min/1.7 3m2 01/15/2019 8:34 AM T [facility] eGFR by MDRD >60 >60 mL/min/1.7 3m2 01/15/2019 8:34 AM [facility] Blood BLOOD SPECIMEN / Unknown Lab Venipuncture / Unknown 01/15/2019 7:50 AM CDT 01/15/2019 8:08 AM CDT Lamont Banks MD LAB - CHEMISTRY [facility] Organization Address City/State/ZIP Co de Phone Number [facility] [address] [place] [address] from Last 3 Months or Most Recently Relevant to Health Maintenance Advance Directives * Full Code (Latest Code Status on File) Date Activated Date Inactivated Comments 01/13/2019 1:32 PM 01/15/2019 7:54 PM * Full Code Date Activated Date Inactivated Comments 01/07/2018 3:00 PM 01/10/2018 1:00 PM Care Teams Mine Engineering Supervisor Relationship Specialty Start Date End Date Bryan Muse MD [address] [place] [address] PCP - General 10/26/21 Lauro Oconnor MD [address] [place] [address] Orthopedist Orthopedic Surgery 07/01/17
--- OUTSIDE RECORDS SUMMARY | 2024-10-29 08:40 | XMS_ITS ---
Author Organization [facility] [employer] [facility] Address [address] [facility] [address] [place] [address] Care Team Providers Care Puppet Maker Name Role Phone Almaz GASTON, Bryan Primary Care Provider Rosemary Fiore Unavailable [phone] Allergies Allergen (clinical drug ingredient) Drug/Non Drug Allergy documented on EMR Reaction Allergy Type Onset Date Status morphine Morphine Unknown Drug Allergy Active REASON FOR VISIT 1 Follow up, MIPS PHQ less than 5 Positive with f/u doc, Depression screening positive, MIPS with Diagnosis of HTN, MIPS BP exclusion due to established diagnosis of HTN Medications Medication SIG (Take, Route, Frequency, Duration) Notes Start Date End Date Status Simvastatin 40 MG Oral for 90 Days Active Propranolol HCl ER 60 MG TAKE 1 CAPSULE BY MOUTH EVERY DAY Oral for 90 Days Active Dorzolamide HCl 2 % Ophthalmic for 37 Days Active Losartan Potassium 100 MG TAKE 1 TABLET BY MOUTH EVERY DAY Oral for 90 Days Active Albuterol Sulfate HFA 108 (90 Base) MCG/ACT 2 PUFF INHALED EVERY 4 - 6 HOURS NEEDED FOR SHORTNESS OF BREATH. Inhalation for 24 Days Active Venlafaxine HCl ER 150 MG 1 capsule ever y morning Oral once a day for 90 days Active lamoTRIgine 200 MG 1 tablet at bedtime Oral Once a day for 90 days Active Fluticasone Propionate HFA 220 MCG/ACT INHALE 1 PUFF BY MOUTH EVERY 12 HOURS Inhalation for 30 Days Active Social History Tobacco Use: Social History Observation Description Date Details (start date - stop date) Never Smoker NA - NA Sex Assigned At : Social History Observation Description Sex Assigned At Male Tobacco Control (Standard) Question Answer Notes Tobacco use: Nonsmoker Problems Problem Type SNOMED Code ICD Code Onset Dates Problem Status W/U Status Risk Notes Problem Primary hypertension (76662142) Primary hypertension (I10) Active confirmed Vital Signs Blood pressure systolic 142 mm Hg 09/16/20 24 Blood pressure diastolic 76 mm Hg 024 Heart Rate 102 /min 09/16/2024 Height 71.00 in 09/16/2024 Weight 244 lbs 09/16/2024 BMI 34.03 kg/m2 09/16/2024 Height-cm 180.34 cm 09/16/2024 Weight-kg 110.68 kg 09/16/2024 Encounters Encounter Location Date Provider Diagnosis [facility] [email or web address] [address] [place] [address] 09/16/2024 Rosemary Osorio Bipolar II disorder F31.81 ; Generalized anxiety disorder F41.1 and Primary hypertension I10 Assessments Encounter Date Diagnosis (ICD Code) Assessment Notes Treatment Notes Treatment Clinical Notes Section Notes 09/16/2024 Bipolar II disorder (ICD-10 - F31.81) Depression - Plan: - Continue current treatment plan with therapy sessions. - Follow-up in 2 months to assess progress and adjust treatment if necessary. Bipolar Disorder - Plan: - No changes needed in medication at this time. - Follow-up in 2 months to assess progress and adjust treatment if necessary. Medication Management - Plan: - Instructed patient to take medications to [facility] for proper disposal. - No new prescriptions needed at this time. Blood Pressure - Plan: - Encourage patient to continue with a healthy diet and weight loss efforts. - Monitor blood pressure during follow-up visits. Anxiety - Plan: - Encourage patient to continue attending therapy sessions to address anxiety and stress management. - Follow-up in 2 months to assess progress and adjust treatment if necessary. 09/16/2024 Generalized anxiety disorder (ICD-10 - F41.1) Depression - Plan: - Continue current treatment plan with therapy sessions. - Follow-up in 2 months to assess progress and adjust treatment if necessary. Bipolar Disorder - Plan: - No changes needed in medication at this time. - Follow-up in 2 months to assess progress and adjust treatment if necessary. Medication Management - Plan: - Instructed patient to take medications to [facility] proper disposal. - No new prescriptions needed at this time. Blood Pressure - Plan: - Encourage patient to continue with a healthy diet and weight loss efforts. - Monitor blood pressure during follow-up visits. Anxiety - Plan: - Encourage patient to continue attending therapy sessions to address anxiety and stress management. - Follow-up in 2 months to assess progress and adjust treatment if necessary. 09/16/2024 Primary hypertension (ICD-10 - I10) Depression - Plan: - Continue current treatment plan with therapy sessions. - Follow-up in 2 months to assess progress and adjust treatment if necessary. Bipolar Disorder - Plan: - No changes needed in medication at this time. - Follow-up in 2 months to assess progress and adjust treatment if necessary. Medication Management - Plan: - Instructed patient to take medications [facility]. - No new prescriptions needed at this time. Blood Pressure - Plan: - Encourage patient to continue with a healthy diet and weight loss efforts. - Monitor blood pressure during follow-up visits. Anxiety - Plan: - Encourage patient to continue attending therapy sessions to address anxiety and stress management. - Follow-up in 2 months to assess progress and adjust treatment if necessary. Plan Of Treatment Medication Medication Name Sig Start Date Stop Date Notes Venlafaxine HCl ER 150 MG 1 capsule ever y morning Oral once a day for 90 days lamoTRIgine 200 MG 1 tablet at bedtime Oral Once a day for 90 days Next Appt Details Follow Up: 2 Months, Reason: Provider Name:Rosemary Osorio , 11/16/2024 11:00:00 AM, [address] [facility] [address], [facility] [address], [place], [address], Progress Notes * PATRICK PENNINGTON EDOB:1950 (74 yo M)Acc No.[id number]:09/16/2024 Patient:?PATRICK PENNINGTON Provider:?ROSEMARY OSORIO MD :1950???Age:74 Y???Sex:Male Jermain e:09/16/2024 Address:[address] [place], [place] [address] Pcp:Bryan Muse MD Subjective: * Chief Complaints: * ???1 Follow upMIPS PHQ less than 5 Positive with f/u docDepression screening positiveMIPS with Diagnosis of HTNMIPS BP exclusion due to established diagnosis of HTN * HPI: ???Depression Screening:? The note is transcribed using speech recognition software. It is a reflection of a visit with the patient. It might have some inaccuracy, including medication names and transcribing errors, though efforts have been made to correct them. Chief Complaint: Overall well-being and medication concern The patient, Patrick, reports that he has been doing well and finds therapy to be helpful, noting a significant decrease in his depression score to four. He has been able to better understand and regulate his emotions through discussions with his therapist. Medication Concerns: Patrick presents with a concern regarding his Lamotrigine prescription, as he has two bottles with different expiration dates and an additional 90-day supply at home. He is unsure if there was an issue with the prescription or the pharmacy, and his usually picks up his prescriptions. Medical History: The patient mentions that his blood pressure fluctuates, and he has a family history of blood pressure issues. He is currently taking Simvastatin for this and is trying to lose weight through dieting. Current Medications: - Lamotrigine - Simvastatin Stress Management: Patrick is managing holiday stress related to shopping and family visits. Other: The patient denies any other significant issues or medical concerns at this time. ?ELVA-7 (2018 Edition)?Feeling nervous, anxious, or on edge?Several days,?Not being able to stop or control worrying?Several days,?Worrying too much about different things?Several days,?Trouble relaxing?Not at all,?Being so restless that it is hard to sit still?Not at all,?Becoming easily annoyed or irritable?Not at all,?Feeling afraid as if something awful might happen?Not at all,?Total ELVA-7 Score?3,?If you checked any problems, how difficult have they made it for you to do your work, take care of things at home, or get along with other people??Not difficult at all,?Interpretation of Total?(0 to 4) No Anxiety.?Depression screening:?PHQ-9?Little interest or pleasure in doing things?Not at all,?Feeling down, depressed, or hopeless?Several days,?Trouble falling or staying asleep, or sleeping too much?Several days,?Feeling tired or having little energy?Several days,?Poor appetite or overeating?Not at all,?Feeling bad about yourself or that you are a failure, or have let yourself or your family down?Several days,?Trouble concentrating on things, such as reading the newspaper or watching television?Not at all,?Moving or speaking so slowly that other people could have noticed; or the opposite, being so fidgety or restless that you have been moving around a lot more than usual?Not at all,?Thoughts that you would be better off or of hurting yourself in some way?Not at all,?Total Score?4,?Interpretation?Minimal Depression.?Intervention?Depression Screening Findings?Positve,?Follow-Up for Depression?Mental health treatment assessment, Patient follow-up to return when and if necessary,?Suicide Risk Assessment Performed? ,?Additional Evaluation for Depression?Psychiatric interview and evaluation,?Name of the standardized tool used for adult depression screening:?Patient Health Questionnaire (PHQ-9).? * ROS:?Patient not eligible due to active diagnosis of hypertension:?G9744. * Medical History:? * Surgical History:? * Hospitalization/Major Diagno stic Procedure:? * Social History:?Tobacco Use:?Tobacco Control (Standard)?Tobacco use:?Nonsmoker.?Migrated Social History:?Migrated Social History: Alcohol Intake: None 10/31/2022,Tobacco Years: Former smoker 06/03/2023. * Medications:?TakingFluticaso ne Propionate HFA 220 MCG/ACT Aerosol INHALE 1 [...] DAY Oral Simvastatin 40 MG Tablet Oral lamoTRIgine 200 MG Tablet 1 tablet at bedtime Oral Once a day Venlafaxine HCl ER 150 MG Capsule Extended Release 24 Hour 1 capsule every morning Oral once a day Medication List reviewed and reconciled with the patientTaking Fluticasone Propionate HFA 220 MCG/ACT Aerosol INHALE [...] Oral Taking Simvastatin 40 MG Tablet Oral Taking lamoTRIgine 200 MG Tablet 1 tablet at bedtime Oral Once a day Taking Venlafaxine HCl ER 150 MG Capsule Extended Release 24 Hour 1 capsule every morning Oral once a day Medication List reviewed and reconciled with the patient * Allergies:?Morphineno[Allerg ies Verified] Objective: * Vitals:?BP:142/76mm Hg, HR:1 02/min, Wt:244lbs, Wt-k.68 kg, Ht: 71.00 in, Ht-cm: 180.34 cm, BMI:34.03Index, Body Surface Area: 2.35. * Examination: ???Neurology: ?Cognition Assessment Tools Used?.?General Examination: ???Mental Status Examination: Patient reports improvement in mood and decrease in depression score to four. Patient is engaging in therapy and reports it as beneficial, indicating good insight and judgment. Medication Management: Patient has multiple bottles of Lamotrigine due to prescription refill issues, advised to dispose of medications. Health History: Patient reports fluctuating blood pressure, takes Simvastatin, and is on a diet to manage weight. Family history of hypertension noted. Current Medication Regimen: For bipolar disorder: Lamotrigine 200 mg at bedtime and Venlafaxine 150 mg. Assessment: * Assessment: 1.?Bipolar II disorder - F31 .81 (Primary)???2.?Generalized anxiety disorder - F41.1???3.?Primary hypertension - I10??? Depression - Plan: - Continue current treatment plan with therapy sessions. - Follow-up in 2 months to assess progress and adjust treatment if necessary. Bipolar Disorder - Plan: - No changes needed in medication at this time. - Follow-up in 2 months to assess progress and adjust treatment if necessary. Medication Management - Plan: - Instructed patient to [facility]. - No new prescriptions needed at this time. Blood Pressure - Plan: - Encourage patient to continue with a healthy diet and weight loss efforts. - Monitor blood pressure during follow-up visits. Anxiety - Plan: - Encourage patient to continue attending therapy sessions to address anxiety and stress management. - Follow-up in 2 months to assess progress and adjust treatment if necessary. Plan: * Treatment: * Procedure Codes:?19256 BEHAV ASSMT W/SCORE & DOCD/STAND [id number] Pt not kyle d/t act dig [id number] VISIT COMPLEXITY INHERENT TO ONGOING CARE RELATED TO A PATIENT'S SINGLE, SERIOUS CONDITION OR A COMPLEX CONDITION * Preventive Medicine:? ??Counseling:?BP Management:?FIRST HYPERTENSIVE BP READING FOLLOW-UP PLAN:?Follow-up 1 month Follow up with your PCP,?LIFESTYLE RECOMMENDATION:?Lifestyle education, REFERRAL TO ALTERNATIVE / PRIMARY CARE PROVIDER:?Referral to general medical service Recommended Nonpharmacologic Interventions (Lifestyle Modifications) - Weight ReductionA heart-healthy diet , such as Dietary Approaches to Stop Hypertension (DASH) Eating PlanDietary Sodium RestrictionIncreased Physical ActivityModeration in alcohol consumption.? * Follow Up:?2 Months * Billing Information: * Visit Code:? 48931 OFFICE OUTPATIENT VISIT 25 MINUTES DETAILED HISTORY AND EXAM/MODERATE MEDICAL DECISION MAKING. * Procedure Codes:? 81187 BEHAV ASSMT W/SCORE & DOCD/STAND INSTRUMENT. G9744 Pt not kyle d/t act dig htn. G2211 VISIT COMPLEXITY INHERENT TO ONGOING CARE RELATED TO A PATIENT'S SINGLE, SERIOUS CONDITION OR A COMPLEX CONDITION. * [employer] Sign off status: Completed true * Provider:?ROSEMARY OSORIO MD Date:?09/16 Generated for Robert chavez/Fannie/Zahraitting on:?10/29/2024 08:40 AM [employer] History and Physical Notes * HPI (History of Present Illness) Category Sub-Category Detail Notes Category Not es Depression screening PHQ-9 Little inte rest or pleasure in doing things: Not at all Feeling down, depressed, or hopeless: Se veral days Trouble falling or staying asleep, or sl eeping too much: Several days Feeling tired or having little energy: S everal days Poor appetite or overeating: Not at all Feeling bad about yourself o r that [...] some way: Not at all Total Score: 4 Interpretation: Minimal Depression Intervention Depression Screening Findings: P ositve Follow-Up for Depression: [facility] treatment assessment, Patient follow-up to return when and if necessary Suicide Risk Assessment Performed: Additional Evaluation for De pression: Psychiatric interview [...] happen: Not at all Total ELVA-7 Score: 3 If you checked any problems, how difficult have they made it for you to do your work, take care of things at home, or get along with other people?: Not difficult at all Interpretation of Total: (0 to 4) No Anx iety Examination Category Sub-Category Detail Notes Category Not es Neurology Cognition Assessment Tools Used Total score SLUMS: 26 General Examination Mental Status Examination: Patient reports improvement in mood and decrease in depression score to four. Patient is engaging in therapy and reports it as beneficial, indicating good insight and judgment. Medication Management: Patient has multiple bottles of Lamotrigine due to prescription refill issues, advised to dispose of medications. Health History: Patient reports fluctuating blood pressure, takes Simvastatin, and is on a diet to manage weight. Family history of hypertension noted. Current Medication Regimen: For bipolar disorder: Lamotrigine 200 mg at bedtime and Venlafaxine 150 mg.
--- OUTSIDE RECORDS SUMMARY | 2024-10-29 08:40 | XMS_ITS | Clinical Summary ---
Author Organization [facility] Address [address] [address] Care Team Providers Care Archivist Military History Name Role Phone Lauro Oconnor MD Unavailable [phone] Bryan Muse MD Primary Care Provider [phone] Source Comments [facility],non-owned Affiliates and Associated Physician Practices is amultiple site organization consisting of ambulatory clinics and hospital sitesin [place], [place], [place] and [place]. This disclosure is being madepursuant to the Care Everywhere program and may not contain all information available regarding this patient. Last updated 18.[facility] Allergies No known active allergies Medications * [...] Mass Index 32.57 04/02/2019 1:43 PM CDT Plan of Treatment Health Maintenance Due Date Last Done Comments COLOGUARD (AGES 45-75) - COL ON CA SCREENING 1950 COLON MONITORING 1950 COLONOSCOPY - COLON CA SCREENING 1950 CT COLONOGRAPHY - COLON CA SCREENING 1950 Colorectal Cancer Screening 1950 FIT - COLON CA SCREENING 1950 FLEX SIG - COLON CA SCREENING 1950 HEPATITIS C SCREENING 04/13/1970 DTAP/TDAP/TD VACCINES (1 - Tdap) 1971 PNEUMOCOCCAL VACCINE 50+ (1 of 2 - PCV) 1971 ZOSTER VACCINE (1 of 2) 2002 Respiratory Syncytial Virus (RSV) Vaccine Pt: or over 60 yrs (1 - Risk 60-74 years 1-dose series) 2012 AAA SCREENING 2017 SCREENING FOR DIABETES 01/15/2022 9, 01/07/2019, 01/09/2018 COVID-19 VACCINE (2023-2 5 season) 2024 INFLUENZA VACCINE (#1) 2024 DEPRESSION SCREENING 10/07/2024 MEDICARE AWV ? CALENDAR YEAR 2024 HEPATITIS B VACCINE Aged Out No longe r eligible based on patient's age to complete this topic HIB VACCINE Aged Out No longer eligi ble based on patient's age to complete this topic HPV VACCINE Aged Out No longer eligi ble based on patient's age to complete this topic MENINGOCOCCAL (Group B) VACCINE Aged Out No longer eligible b ased on patient's age to complete this topic MENINGOCOCCAL VACCINE Aged Out No enrique trixie eligible based on patient's age to complete this topic Medical Devices Implanted Type Area Reconditioner Device Identifier Shelf Expiration Date Model / Serial / Lot Cmnt Bone Plc R 40gm Grn Implanted:Qty: 2 on 01/07/2018 by Lauro Oconnor MD at [facility] Left: Knee [employer] 06/06/2022 [id number] / / [id number] Cmnt Bone Plc R 40gm Grn Implanted:Qty: 1 on 01/07/2018 by Lauro Oconnor MD at [facility] Left: Knee [employer] 06/06/2022 [id number] / / [id number] Cmpnt Ptlr 35mm [employer] Lf Implanted:Qty: 1 on 01/07/2018 by Lauro Oconnor MD at [facility] Left: Knee [employer] 10/06/2025 [id number] / / [id number] Cmpnt Fem Kn Lt 7 Std Cmnt Post Stab Implanted:Qty: 1 on 01/07/2018 by Lauro Oconnor MD at [facility] Left: Knee [employer] 06/06/2027 [id number] / / [id number] Bsplt Tib Persona 5d G Kn Lt Cmnt Stm Implanted:Qty: 1 on 01/07/2018 by Lauro Oconnor MD at [facility] Left: Knee [employer] 07/06/2027 [id number] / / [id number] Srfc Artc 10mm 6-9 Gh Kn Lt Vivacit-E Implanted:Qty: 1 on 01/07/2018 by Lauro Oconnor MD at [facility] Left: Knee [employer] 06/06/2021 [id number] / / [id number] Srfc Artc 10mm 6-9 Gh Kn Lt Vivacit-E Implanted:Qty: 1 on 01/13/2019 by Lamont Banks MD at [facility] Left: Knee [employer] 01/04/2023 [id number] / / [id number] Procedures Procedure Name Priority Date/Time Associated Diagnosis Comments BASIC METABOLIC PANEL (CALCIUM TOTAL) AM Draw 01/15/2019 7:50 AM CDT from Last 3 Months or Most Recently Relevant to Health Maintenance Results * BASIC METABOLIC PANEL (CALCIUM TOTAL) (01/15/2019 7:50 AM CDT) [facility] Glucose 82 74 - 106 mg/dL 01/15/2019 8:34 AM CDT [facility] Sodium 141 136 - 145 mmol/L 01/15/2019 8:34 AM CDT [facility] Potassium 4.3 3.5 - 5.1 mmol/L 01/15/2019 8:34 AM CDT [facility] Chloride 105 98 - 107 mmol/L 01/15/2019 8:34 AM CDT [facility] CO2 28 23 - 31 mmol/L 01/15/2019 8:34 AM CDT [facility] Calcium 8.7 8.4 - 10.2 mg/dL 01/15/2019 8:34 AM CDT [facility] Anion Gap 8 8 - 16 mmol/L 01/15/2019 8:34 AM CDT [facility] BUN 14 8.4 - 25.7 mg/dL 01/15/2019 8:34 AM CDT [facility] Creatinine 0.98 0.73 - 1.18 mg/dL 01/15/2019 8:34 AM CDT [facility] eGFR by MDRD >60 >60 mL/min/1.7 3m2 01/15/2019 8:34 AM CDT [facility] eGFR by MDRD >60 >60 mL/min/1.7 3m2 01/15/2019 8:34 AM CDT [facility] Blood BLOOD SPECIMEN / Unknown Lab Venipuncture / Unknown 01/15/2019 7:50 AM CDT 01/15/2019 8:08 AM CDT Lamont Banks MD LAB - CHEMISTRY [facility] Organization Address City/State/ZIP Co de Phone Number [facility] [address] [place] [address] from Last 3 Months or Most Recently Relevant to Health Maintenance Advance Directives * Full Code (Latest Code Status on File) Date Activated Date Inactivated Comments 01/13/2019 1:32 PM 01/15/2019 7:54 PM * Full Code Date Activated Date Inactivated Comments 01/07/2018 3:00 PM 01/10/2018 1:00 PM Care Teams Archivist Military History Relationship Specialty Start Date End Date Bryan Muse MD [address] [place] [address] PCP - General 10/26/21 Lauro Oconnor MD [address] [address] Orthopedist Orthopedic Surgery 07/01/17
--- OUTSIDE RECORDS SUMMARY | 2024-10-29 08:40 | XMS_ITS | Continuity of Care Document ---
Author Organization [facility] [place] [facility] Address [address] [facility] [address] [place] [address] Phone Care Team Providers Care Remote Sensing Technician Name Role Phone Zaki Huber MD Unavailable Unavailable Allergies, Adverse Reactions, Alerts Substance Reaction Status Criticality codeine Active No Information morphine Active No Information Medications Medication Instructions Dosage Effective Dates (start - stop) Status Comments DORZOLAMIDE HCL 2% EYE DROPS INSTILL 1 DROP BOTH EYES EVERY 12 HOURS - Active losartan 50 mg tablet - Active lamotrigine 200 mg tablet - Active albuterol sulfate HFA 90 mcg/actuation aerosol inhaler - Active latanoprost 0.005 % eye drops instill 1 drop by ophthalmic route every day into both eyes in the evening 1.00 drop - Active venlafaxine ER 150 mg capsule,extended release 24 hr - Active simvastatin 40 mg tablet - Active Procedures Procedure Date GDX Optic Nerve EYE EXAM ESTABLISHED PAT GONIOSCOPY VISUAL FIELD- EXTENDED EYE EXAM & TREATMENT VISUAL FIELD- EXTENDED EYE EXAM ESTABLISHED PAT GONIOSCOPY GDX Optic Nerve EYE EXAM ESTABLISHED PAT EYE EXAM ESTABLISHED PAT No Charge Visit SLT SLT No Charge Visit EYE EXAM WITH PHOTOS EYE EXAM ESTABLISHED PAT No Charge Visit Advance Directives Directive Yes / No Effective Date File Name No Information Encounters Encounter Description Practice Location Reason(s) For Visit Diagnoses Date Provider Providers Copied on Encounter [facility], [address] [place] [address], [address] [place] [address], tel:[phone] [facility] No Information Jul- 2 Mayo Haines. [address] [place] [address], Counts include 234 beds at the [facility], . tel:[phone] Referring Provider: Pierce Jaramillo, [address] [place] [address], Counts include 234 beds at the [facility]. tel:[phone] [facility], [address] [place] [address], [address] [place] [address], tel:[phone] [facility] No Information Jun- 1 Mayo Haines. [address] [place] [address], Counts include 234 beds at the [facility], . tel:[phone] Referring Provider: Pierce Jaramillo, [address] [place] [address], Counts include 234 beds at the [facility]. tel:[phone] [facility], [address] [place] [address], [address] [place] [address], tel:[phone] [facility] Glaucoma (chief complaint) Age-related nuclear cataract, bilateralPrima ry open-angle glaucoma, bilateral, moderate stagePrimary open-angle glaucoma, bilateral, severe stage Colten-0 1 Mayo Haines. [address] [place] [address], Counts include 234 beds at the [facility], . tel:[phone] Referring Provider: Pierce Jaramillo, [address] [place] [address], Counts include 234 beds at the [facility]. tel:[phone] [facility], [address] [place] [address], [id number], tel:[phone] [facility] Glaucoma (chief complaint) Primary open-angle glaucoma, bilateral, moderate stageAge-relat ed nuclear cataract, bilateral Feb-0 3-202 1 Mayo Zaki. [address] [place] [address], [address], [place]. tel:[phone] Referring Provider: Pierce Pino MD S, [address] [facility] [address], [place], [address]. tel:[phone] [facility], [address] [place] [address], [id number], tel:[phone] [facility] Glaucoma (chief complaint) Age-related nuclear cataract, bilateralPrima ry open-angle glaucoma, bilateral, moderate stage Oct-0 7-202 0 Mayo Haines. [address] [place] [address], [id number], [place]. tel:[phone] Referring Provider: Zaki Huber, [address] [place] [address], [id number]. tel:[phone] [facility], [address] [place] [address], [id number], tel:[phone] [facility] Glaucoma, followup (chief complaint) Primary open-angle glaucoma, bilateral, moderate stageAge-relat ed nuclear cataract, bilateral Colten-0 3-202 0 Mayo Zaki. [address] [place] [address], [id number], [place]. tel:[phone] [facility], [address] [place] [address], [id number], [place] tel:[phone] [facility] No Information Colten-0 3-202 0 Mayo Zaki. [address] [place] [address], [address], [place]. tel:[phone] [facility], [address] [place] [address], [id number], [place] tel:[phone] [facility] 6WK POST SLT (chief complaint) Primary open-angle glaucoma, bilateral, moderate stageAge-relat ed nuclear cataract, bilateral Mar-0 2-202 0 Mayo Haines. [address] [place] [address], [address], [place]. tel:[phone] [facility], [address] [place] [address], [id number], [place] tel:[phone] [facility] Glaucoma (chief complaint) Age-related nuclear cataract, bilateralPrima ry open-angle glaucoma, bilateral, severe stage 0 Mayo Haines. [address] [place] [address], [address], [place]. tel:[phone] [facility], [address] [place] [address], [id number], [place] tel:[phone] [facility] Glaucoma, followup (chief complaint) Primary open-angle glaucoma, bilateral, moderate stageAge-relat ed nuclear cataract, bilateral 0 0 Short Bixby. [address] [place] [address], [address], [place]. tel:[phone] [facility], [address] [place] [address], [id number], [place] tel:[phone] [facility] Primary open-angle glaucoma, bilateral, moderate stageAge-relat ed nuclear cataract, bilateral 9 [facility]. [address] [place] [address], [address], [place]. tel:[phone] [facility], [address] [place] [address], [id number], [place] tel:[phone] [facility] Primary open-angle glaucoma, bilateral, moderate stageAge-relat ed nuclear cataract, bilateral 9 [facility]. [address] [place] [address], [address], [place]. tel:[phone] [facility], [address] [place] [address], [id number], [place] tel:[phone] [facility] Primary open-angle glaucoma, bilateral, moderate stageAge-relat ed nuclear cataract, bilateral 9 [facility]. [address] [place] [address], [address], [place]. tel:[phone] [facility], [address] [place] [address], [id number], [place] tel:[phone] [facility] Primary open-angle glaucoma, bilateral, moderate stageAge-relat ed nuclear cataract, bilateral 8 Mayo Haines. [address] [place] [address], [address], [place]. tel:[phone] [facility], [address] [place] [address], [id number], [place] tel:[phone] [facility] Primary open-angle glaucoma, bilateral, moderate stageAge-relat ed nuclear cataract, bilateral 8 Short Mary Carmen. [address] [place] [address], [address], [place]. tel:[phone] [facility], [address] [place] [address], [id number], [place] tel:[phone] [facility] Glaucomatous optic atrophy, bilateralPrima ry open-angle glaucoma, bilateral, moderate stageAge-relat ed nuclear cataract, bilateral Dec- 8 Han Lentz. [address] [place] [address], [address], [place]. tel:[phone] [facility], [address] [place] [address], [id number], [place] tel:[phone] [facility] Primary open-angle glaucoma, bilateral, moderate stage 7 Han Lentz. [address] [place] [address], [address], [place]. tel:[phone] [facility], [address] [place] [address], [id number], [place] tel:[phone] [facility] Primary open-angle glaucoma, bilateral, moderate stage Dec-0 7 Mayo Haines. [address] [place] [address], [address], [place]. tel:[phone] [facility], [address] [place] [address], [id number], [place] tel:[phone] [facility] Primary open-angle glaucoma, bilateral, moderate stage Roberto-0 7 [facility]. [address] [place] [address], [address], [place]. tel:[phone] [facility], [address] [place] [address], [id number], [place] tel:[phone] [facility] Primary open-angle glaucoma, bilateral, moderate stage Dec-2 - 6 [facility]. [address] [place] [address], [address], [place]. tel:[phone] [facility], [address] [place] [address], [id number], [place] tel:[phone] [facility] Primary open-angle glaucoma, moderate stage Sep-2 6 [facility]. [address] [place] [address], [address], [place]. tel:[phone] [facility], [address] [place] [address], [id number], [place] tel:[phone] [facility] Primary open-angle glaucoma, moderate stage Apr- 6 [facility]. [address] [place] [address], [address], [place]. tel:[phone] [facility], [address] [place] [address], [id number], [place] tel:[phone] [facility] Primary open-angle glaucoma, moderate stageAge-relat ed nuclear cataract, bilateral Colten- 6 [facility]. [address] [place] [address], [address], [place]. tel:[phone] [facility], [address] [place] [address], [id number], [place] tel:[phone] [facility] Primary open-angle glaucoma, moderate stageAge-relat ed nuclear cataract, bilateral Dec-0 6 [facility]. [address] [place] [address], [address], [place]. tel:[phone] [facility], [address] [place] [address], [id number], [place] tel:[phone] [facility] Primary open-angle glaucoma, moderate stageAge-relat ed nuclear cataract, bilateral Dec- 0 5 [place] Mary Carmen. [address] [place] [address], [address], [place]. tel:[phone] [facility], [address] [place] [address], [id number], [place] tel:[phone] [facility] PRIM OPEN ANGLE GLAUCOMAMODERA TE STAGE GLAUCOMASENILE NUCLEAR CATARACT May- 5 [facility]. [address] [place] [address], [address], [place]. tel:[phone] [facility], [address] [place] [address], [id number], [place] tel:[phone] [facility] PRIM OPEN ANGLE GLAUCOMAMODERA TE STAGE GLAUCOMASENILE NUCLEAR CATARACT Jan- 5 [facility]. [address] [place] [address], [address], [place]. tel:[phone] [facility], [address] [place] [address], [id number], [place] tel:[phone] [facility] PRIM OPEN ANGLE GLAUCOMAMODERA TE STAGE GLAUCOMA Dec- 5 Mayo Haines. [address] [place] [address], [address], [place]. tel:[phone] [facility], [address] [place] [address], [id number], [place] tel:[phone] [facility] PRIM OPEN ANGLE GLAUCOMA Oct- 4 [facility]. [address] [place] [address], [address], [place]. tel:[phone] [facility], [address] [place] [address], [id number], [place] tel:[phone] [facility] PRIM OPEN ANGLE GLAUCOMA Oct-0 4 Short Mary Carmen. [address] [place] [address], Counts include 234 beds at the [facility], . tel:[phone] [facility], [address] [place] [address], [id number], tel:[phone] [facility] PRIM OPEN ANGLE GLAUCOMASENILE NUCLEAR CATARACT May- 4 Mayo Zaki. [address] [place] [address], Counts include 234 beds at the [facility], . tel:[phone] [facility], [address] [place] [address], [address] [place] [address], tel:[phone] [facility] PRIM OPEN ANGLE GLAUCOMASENILE NUCLEAR CATARACT May- 4 [facility]. [address] [place] [address], Counts include 234 beds at the [facility], . tel:[phone] [facility], [address] [place] [address], [id number], tel:[phone] [facility] PRIM OPEN ANGLE GLAUCOMA Oct-2 3 No Information Family History Family Member Type Diagnosis Age At Onset Grandmother Problem (finding) Open-angle glaucoma Grandmother Problem (finding) Fhx of diabetes mellitu s Grandmother Problem (finding) Open-angle glaucoma Grandmother Problem (finding) Fhx of diabetes mellitu s Payers Payer name Insurance type Covered green party ID Authorkeegan tobias(s) [facility] [id number] Social History Type Description Quantity Date Captured Comments Sex Male Smoking Status No Information Chief Complaint And Reason For Visit No Information Plan Of Treatment Date Type Action Status Goal Tobacco cessation counseling completed Goal Tobacco cessation counseling completed Goal Tobacco cessation counseling completed History Of Present Illness Encounter Date Complaint History Of Prese nt Illness Glaucoma The 70 year old male presents for evaluation of Glaucoma in the right eye and left eye, for many years. Patient denies vision changes. Patient reports compliance with Latanoprost QHS OU, last used at 8:00p yesterday- and Dorzolamide BID OU, last used at 6:00a yesterday. Patient denies headaches, pain, and watering. Patient denies floaters, and flashes of light. Glaucoma The 70 year old male presents for evaluation of Glaucoma in the right eye and left eye. Monitored many years. Good compliance with gtt use. Using Dorzolamide OU BID & Latanoprost OU nightly. Last dose: Dorz. OU 8am & Latanoprost OU appr 9:00 last pm. Glaucoma The 70 year old male presents for evaluation of Glaucoma in the right eye and left eye. Many years. The condition is moderate. Pt reports compliance with drops. Glaucoma, followup The 69 year o ld male presents for evaluation of Glaucoma, followup in the right eye and left eye. The symptom is constant. The condition is moderate for many years. S/P multiple SLT OU. Dorz BID OU@ 6am Latanoprost QHS OU@6pm 6WK POST SLT The patient is p resent for evaluation of 6WK POST SLT LASER TREATMENT. Glaucoma The 69 year old male presents for evaluation of Glaucoma in the right eye and left eye. The onset was progressive. The symptom is constant. The condition is moderate. Dorz/lang @ 7am OU, Latanprost @ 8:00 pm OU. Here for SLT today. Glaucoma, followup The 69 year o ld male presents for evaluation of Glaucoma, followup in the right eye and left eye. It started about 6 year(s) ago. The symptom is constant. The condition is moderate. Patient denies drop problems, but admits to missing gtts at times. Using Latanoprost QHS OU, but missed last nights' dose, and using Dorz/Lang BID OU (this am ~0700) . Instructions Date Instruction Additional Infor chente Impression/Plan Related to Prima ry open-angle glaucoma, bilateral, moderate stage Impression/Plan Related to Age-r elated nuclear cataract, bilateral Impression/Plan Related to Prima ry open-angle glaucoma, bilateral, moderate stage Impression/Plan Related to Age-r elated nuclear cataract, bilateral Impression/Plan Related to Prima ry open-angle glaucoma, bilateral, moderate stage Impression/Plan Related to Age-r elated nuclear cataract, bilateral Impression/Plan Related to Age-r elated nuclear cataract, bilateral Impression/Plan Related to Prima ry open-angle glaucoma, bilateral, moderate stage Impression/Plan Related to Age-r elated nuclear cataract, bilateral Impression/Plan Related to Prima ry open-angle glaucoma, bilateral, moderate stage Impression/Plan Related to Prima ry open-angle glaucoma, bilateral, moderate stage Impression/Plan Related to Age-r elated nuclear cataract, bilateral Impression/Plan Related to Age-r elated nuclear cataract, bilateral Impression/Plan Related to Prima ry open-angle glaucoma, bilateral, moderate stage Assessments Type Assessment Date No Information
--- OUTSIDE RECORDS SUMMARY | 2024-10-29 08:41 | XMS_ITS | Patient Health Record ---
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 growing up with father who was a strict/abusive alcoholic. Client provided supportive therapy and encouragement to be true to self. Client receptive to session feedback. Next session in four weeks. 74 year old (2x) male seen [...] denied for mental illness. Client born in [facility] and grew up [place], [place]. He is the father of three [...] Noted he and had a pretty good Freida in spite of not being around his [...] denied for mental illness. Client born in [facility] and grew up [place], [place]. He is the father of three [...] denied for mental illness. Client born in [facility] and grew up [place], [place]. He is the father of three children. Relationship with children is good but stated that daughter is his favorite. Relationship with parents was not that good and as he gotten stated he did not careif parents live or . Plan Of Treatment Next Appt Details Provider Name:Rolly Silva , 11/16/2024 11:00:00 AM, [address], [address], [place], [address], Insurance Providers Payer Name Payer Address Payer Phone Subscriber Number Group Number Insured Name Patient Relationship to Insured Coverage Start Date Coverage End Date [employer] Medicare Replacement/ Advantage - Hmo [address] [place] [address] [id number] PATRICK PENNINGTON Self - patient is the insured Medical (General) History Medical History History ICD Code Problems: Bipolar II disorder Generalized anxiety disorder Nicotine dependence with current use , asthma - mild persistent Surgical History Surgery Date(Month/Year) Removal of gallbladder (05869) 0
== END 2024-10-24 08:56 | disposition home or self-care (01) ==
LOC: ANHLAB 08:59
PROVIDERS: PCP Family Medicine; Visit Provider Family Medicine
DX: D64.9 Anemia, unspecified (principal); I10 Essential (primary) hypertension; Z12.5 Encounter for screening for malignant neoplasm of prostate; E78.2 Mixed hyperlipidemia; Z13.220 Encounter for screening for lipoid disorders
CPT/HCPCS: 36415; 80048; 80061; 80076; 82607; 82728; 83540; 83550; 84153; 84443; 85027; G0103

== ENCOUNTER 2025-03-11 03:45 | Day surgery (SDC) | payer OTHER, SELFPAY ==
[2025-03-02 10:08] VITALS: BMI 33.0
--- OUTSIDE RECORDS SUMMARY | 2025-03-11 03:48 | XMS_ITS | Continuity of Care Document ---
Author Organization [facility] Address [address] [facility] [address] [place] [address] Phone Care Team Providers Care Instruction Librarian Name Role Phone Zaki Huber MD Unavailable [...] Providers Copied on Encounter [facility], [address] [place] [address], [id number], tel:[phone] [facility] No Information 2 Mayo Haines. [address] [place] [address], [id number], [place]. tel:[phone] Referring Provider: Pierce Jaramillo, [address] [place] [address], [id number]. tel:[phone] [facility], [address] [place] [address], [id number], tel:[phone] [facility] No Information 1 Mayo Haines. [address] [place] [address], [id number], [place]. tel:[phone] Referring Provider: Pierce Jaramillo, [address] [place] [address], [address]. tel:[phone] [facility], [address] [place] [address], [id number], tel:[phone] [facility] Glaucoma (chief complaint) Age-related nuclear cataract, bilateralPrima ry open-angle glaucoma, bilateral, moderate stagePrimary open-angle glaucoma, bilateral, severe stage Colten-0 1 Mayo Haines. [address] [place] [address], [id number], [place]. tel:[phone] Referring Provider: Pierce Jaramillo, [address] [place] [address], [id number]. tel:[phone] [facility], [address] [place] [address], [id number], tel:[phone] [facility] Glaucoma (chief complaint) Primary open-angle glaucoma, bilateral, moderate stageAge-relat ed nuclear cataract, bilateral Feb-0 3-202 1 Mayo Haines. [address] [place] [address], [id number], [place]. tel:[phone] Referring Provider: Pierce Pino MD S, [address] [facility] [address], [place], [address]. tel:[phone] [facility], [address] [place] [address], [id number], [place] tel:[phone] [facility] Glaucoma (chief complaint) Age-related nuclear cataract, bilateralPrima ry open-angle glaucoma, bilateral, moderate stage Oct-0 7-202 0 [facility] Zaki. [address] [place] [address], [id number], [place]. tel:[phone] Referring Provider: Zaki Huber, [address] [place] [address], [id number] . tel:[phone] [facility], [address] [place] [address], [id number], [place] tel:[phone] [facility] Glaucoma, followup (chief complaint) Primary open-angle glaucoma, bilateral, moderate stageAge-relat ed nuclear cataract, bilateral Colten-0 3-202 0 [facility] Zaki. [address] [place] [address], [id number], [place]. tel:[phone] [facility], [address] [place] [address], [id number], [place] tel:[phone] [facility] No Information Colten-0 3-202 0 [facility] Zaki. [address] [place] [address], [id number], [place]. tel:[phone] [facility], [address] [place] [address], [id number], [place] tel:[phone] [facility] 6WK POST SLT (chief complaint) Primary open-angle glaucoma, bilateral, moderate stageAge-relat ed nuclear cataract, bilateral Mar-0 2-202 0 [facility] Zaik. [address] [place] [address], [id number], [place]. tel:[phone] [facility], [address] [place] [address], [id number], [place] tel:[phone] [facility] Glaucoma (chief complaint) Age-related nuclear cataract, bilateralPrima ry open-angle glaucoma, bilateral, severe stage 0 0 Mayo Haines. [address] [place] [address], [id number], [place]. tel:[phone] [facility], [address] [place] [address], [id number], [place] tel:[phone] [facility] Glaucoma, followup (chief complaint) Primary open-angle glaucoma, bilateral, moderate stageAge-relat ed nuclear cataract, bilateral 0 0 Han Lentz. [address] [place] [address], [id number], [place]. tel:[phone] [facility], [address] [place] [address], [id number], [place] tel:[phone] [facility] Primary open-angle glaucoma, bilateral, moderate stageAge-relat ed nuclear cataract, bilateral 9 Short Mary Carmen. [address] [place] [address], [id number], [place]. tel:[phone] [facility], [address] [place] [address], [id number], [place] tel:[phone] [facility] Primary open-angle glaucoma, bilateral, moderate stageAge-relat ed nuclear cataract, bilateral 9 [facility]. [address] [place] [address], [id number], [place]. tel:[phone] [facility], [address] [place] [address], [id number], [place] tel:[phone] [facility] Primary open-angle glaucoma, bilateral, moderate stageAge-relat ed nuclear cataract, bilateral 9 Han Lentz. [address] [place] [address], [id number], [place]. tel:[phone] [facility], [address] [place] [address], [id number], [place] tel:[phone] [facility] Primary open-angle glaucoma, bilateral, moderate stageAge-relat ed nuclear cataract, bilateral 8 Mayo Haines. [address] [place] [address], [id number], [place]. tel:[phone] [facility], [address] [place] [address], [id number], [place] tel:[phone] [facility] Primary open-angle glaucoma, bilateral, moderate stageAge-relat ed nuclear cataract, bilateral 8 Han Lentz. [address] [place] [address], [id number], [place]. tel:[phone] [facility], [address] [place] [address], [id number], [place] tel:[phone] [facility] Glaucomatous optic atrophy, bilateralPrima ry open-angle glaucoma, bilateral, moderate stageAge-relat ed nuclear cataract, bilateral Dec- 8 Han Lentz. [address] [place] [address], [id number], [place]. tel:[phone] [facility], [address] [place] [address], [id number], [place] tel:[phone] [facility] Primary open-angle glaucoma, bilateral, moderate stage 7 Han Lentz. [address] [place] [address], [id number], [place]. tel:[phone] [facility], [address] [place] [address], [id number], [place] tel:[phone] [facility] Primary open-angle glaucoma, bilateral, moderate stage Dec-0 7 Mayo Haines. [address] [place] [address], [id number], [place]. tel:[phone] [facility], [address] [place] [address], [id number], [place] tel:[phone] [facility] Primary open-angle glaucoma, bilateral, moderate stage Roberto-0 5-201 7 [facility]. [address] [place] [address], [id number], [place]. tel:[phone] [facility], [address] [place] [address], [id number], [place] tel:[phone] [facility] Primary open-angle glaucoma, bilateral, moderate stage Dec-2 1- [address] [facility]. [address] [place] [address], [id number], [place]. tel:[phone] [facility], [address] [place] [address], [id number], [place] tel:[phone] [facility] Primary open-angle glaucoma, moderate stage Sep-2 3-201 6 [facility]. [address] [place] [address], [id number], [place]. tel:[phone] [facility], [address] [place] [address], [id number], [place] tel:[phone] [facility] Primary open-angle glaucoma, moderate stage Wang-2 0-201 6 [facility]. [address] [place] [address], [id number], [place]. tel:[phone] [facility], [address] [place] [address], [id number], [place] tel:[phone] [facility] Primary open-angle glaucoma, moderate stageAge-relat ed nuclear cataract, bilateral Colten- 7- 6 [facility]. [address] [place] [address], [id number], [place]. tel:[phone] [facility], [address] [place] [address], [id number], [place] tel:[phone] [facility] Primary open-angle glaucoma, moderate stageAge-relat ed nuclear cataract, bilateral Mar-0 9 6 Short Mary Carmen. [address] [place] [address], [id number], [place]. tel:[phone] [facility], [address] [place] [address], [id number], [place] tel:[phone] [facility] Primary open-angle glaucoma, moderate stageAge-relat ed nuclear cataract, bilateral Dec-1 0201 5 [facility]. [address] [place] [address], [id number], [place]. tel:[phone] [facility], [address] [place] [address], [id number], [place] tel:[phone] [facility] PRIM OPEN ANGLE GLAUCOMAMODERA TE STAGE GLAUCOMASENILE NUCLEAR CATARACT May- 5 [facility]. [address] [place] [address], [id number], [place]. tel:[phone] [facility], [address] [place] [address], [id number], [place] tel:[phone] [facility] PRIM OPEN ANGLE GLAUCOMAMODERA TE STAGE GLAUCOMASENILE NUCLEAR CATARACT Jan-2 5 [facility]. [address] [place] [address], [id number], [place]. tel:[phone] [facility], [address] [place] [address], [id number], [place] tel:[phone] [facility] PRIM OPEN ANGLE GLAUCOMAMODERA TE STAGE GLAUCOMA Dec-2 5 Mayo Haines. [address] [place] [address], [id number], [place]. tel:[phone] [facility], [address] [place] [address], [id number], [place] tel:[phone] [facility] PRIM OPEN ANGLE GLAUCOMA Oct-2 4 Han Lentz. [address] [place] [address], [id number], [place]. tel:[phone] [facility], [address] [place] [address], [id number], tel:[phone] [facility] PRIM OPEN ANGLE GLAUCOMA Oct-0 4 Shortorly Lentz. [address] [place] [address], [id number], [place]. tel:[phone] [facility], [address] [place] [address], [id number], tel:[phone] [facility] PRIM OPEN ANGLE GLAUCOMASENILE NUCLEAR CATARACT Aug-2 4 Mayo Haines. [address] [place] [address], [id number], [place]. tel:[phone] [facility], [address] [place] [address], [id number], tel:[phone] [facility] PRIM OPEN ANGLE GLAUCOMASENILE NUCLEAR CATARACT May-2 4 [place] Mary Carmen. [address] [place] [address], [id number], [place]. tel:[phone] [facility], [address] [place] [address], [id number], tel:[phone] [facility] PRIM OPEN ANGLE GLAUCOMA Oct-2 3 No Information Family History Family Member Type Diagnosis Age At Onset Grandmother Problem (finding) Open-angle glaucoma Grandmother Problem (finding) Fhx of diabetes mellitu s Grandmother Problem (finding) Open-angle glaucoma Grandmother Problem (finding) Fhx of diabetes mellitu s Payers Payer name Insurance type Covered libertarian ID Silvia tobias(s) [place] [id number] Social History Type Description Quantity Date Captured Comments Sex Male Smoking Status No Information Chief Complaint And Reason For Visit No Information Reason For Referral Reason For Referral No Information Plan Of Treatment Date Type [...] Dorz/Lang BID OU (this am ~0700) . Functional Status Date Functional Assessmen t No Information Instructions Date Instruction Additional Infor mation Impression/Plan Related to Prima ry open-angle glaucoma, [...] Related to Age-r elated nuclear cataract, bilateral Return in 1-2 weeks with Zaki Huber MD for SLT OU Related to Primary open-angle glaucoma, bilateral, moderate stage Impression/Plan Related to Age-r elated nuclear cataract, bilateral Impression/Plan Related to Prima ry open-angle glaucoma, bilateral, moderate stage Assessments Type Assessment Date No Information Patient Care Teams Name Effective Dates (start - stop) Status Members No Information
--- OUTSIDE RECORDS SUMMARY | 2025-03-11 03:48 | XMS_ITS | Encounter Summary ---
Author Organization [facility] Address [address] [facility] [place] [address] Care Team Providers Care Dental Mechanic Name Role Phone Lauro Oconnor MD Unavailable [phone] Bryan Muse MD Primary Care Provider [phone] Encounter Details Date Type Department Care Team (Late st Contact Info) Description 08/14/2019 [facility] Outpatient Visit [facility] [address] [place] [address] [id number] Lamont Banks MD [address] [place] [address] [address] [place] [id number] Social History Tobacco Use Types Packs/Day Years Used Date Smoking Tobacco: Every Day Cigarettes Smokeless Tobacco: Never Alcohol Use Standard Drinks/Week Comments No 0 (1 standard drink = 0.6 oz pur e alcohol) Sex and Gender Information Value Date Recorded Sex Assigned at Not on file Legal Sex Male 1:54 PM CDT Gender Identity Not on file Sexual Orientation Not on file documented as of this encounter Functional Status * Is person deaf or have serious hearing difficulty? Answer Date of Assessment Author No 01/13/2019 10:30 PM Ashlie Beck RN * Is person blind or have serious difficulty seeing? Answer Date of Assessment Author No 01/13/2019 10:30 PM Ashlie Beck RN * Does person have serious difficulty walking/climbing stairs? Answer Date of Assessment Author No 01/13/2019 10:30 PM Ashlie Beck RN * Does person have difficulty dressing/bathing? Answer Date of Assessment Author No 01/13/2019 10:30 PM Ashlie Beck RN * Does person have difficulty doing errands alone? Answer Date of Assessment Author No 01/13/2019 10:30 PM Ashlie Beck RN documented as of this encounter Mental Status * Does person have difficulty concentrating/remembering/making decisions? Answer Entry Date Author No 01/13/2019 10:30 PM Ashlie Beck RN documented in this encounter Plan of Treatment Not on file documented as of this encounter Visit Diagnoses Not on filedocumented in this encounter Care Teams Dental Mechanic Relationship Specialty Start Date End Date Bryan Muse MD [address] [place] [id number] PCP - General 10/26/21 Lauro Oconnor MD [address] [address] Orthopedist Orthopedic Surgery 07/01/17 documented as of this encounter
--- OUTSIDE RECORDS SUMMARY | 2025-03-11 03:48 | XMS_ITS | Patient Health Record ---
Author Organization [facility] [employer] Address [address] [facility] [address] [place] [address] Care Team Providers Care Technical Maintenance Technician Name Role Phone Almaz GASTON, Bryan Primary Care Provider Rolly Fiore Unavailable [phone] Huber Montalvo Unavailable [phone] Allergies Allergen (clinical drug ingredient) Drug/Non Drug [...] OF BREATH. Inhalation for 24 Days Active Simvastatin 40 MG Oral for 90 Days Active Propranolol HCl ER 60 MG TAKE 1 CAPSULE BY MOUTH EVERY DAY Oral for 90 Days Active lamoTRIgine 200 MG TAKE 1 TABLET BY RAMON EVERYDAY AT BEDTIME for 90 Active Venlafaxine HCl ER 150 MG 1 capsule ever y morning Oral once a day for 90 days Active Dorzolamide HCl 2 % Ophthalmic for 37 Days Active Fluticasone Propionate HFA 220 MCG/ACT INHALE 1 PUFF BY MOUTH EVERY 12 HOURS Inhalation for 30 Days Active Social History Tobacco Use: Social History Observation Description Date Details (start date - stop date) Former Smoker NA - NA Sex Assigned At : Social History Observation Description Sex Assigned At Male Tobacco Control (Standard) Question Answer Notes Tobacco use: Former smoker AUDIT-C (Standard) Question Answer Notes Did you have a drink containing alcohol in the p ast year? No Points 0 Interpretation Negative Problems Problem Type SNOMED Code ICD Code Onset Dates Problem Status W/U Status Risk Notes Problem Tobacco user (857176692) Nicotine dependence, unspecified, uncomplicated (F17.200) Active confirmed Problem Bipolar II disorder (F31.81) Active confirmed Problem Generalized anxiety disorder (F41.1) Active confirmed Problem Primary hypertension (I10) Active confirmed Problem Bipolar 2 disorder (81191568) Bipolar 2 disorder (F31.81) Active confirmed Problem Generalized anxiety disorder (87689251) ELVA (generalized anxiety disorder) (F41.1) Active confirmed Problem 82318092 Essential hypertension (I10) Active confirmed Vital Signs Heart Rate 90 /min 11/16/2024 Height-cm 180.34 cm 01/13/2025 Blood pressure diastolic 99 mm Hg 01/13/2025 Weight-kg 114.31 kg 01/13/2025 Height 71.00 in 01/13/2025 Blood pressure systolic 170 mm Hg 01/13/2025 Weight 252.0 lbs 01/13/2025 BMI 35.14 kg/m2 01/13/2025 Encounters Encounter Location Date Provider Diagnosis [facility] [employer] [place] [id number] [place] [address] 03/30/2024 Rolly Shira Bipolar II disorder F31.81 ; Nicotine dependence, unspecified, uncomplicated F17.200 ; Generalized anxiety disorder F41.1 and Primary hypertension I10 [facility] [employer] [place] [address] [place] [address] 05/01/2024 Huber Montalvo Bipolar 2 disorder F31.81 and Generalized anxiety disorder F41.1 [facility] [employer] [facility] [employer] [place] [address] [place] [address] 06/18/2024 Rolly Shira Bipolar II disorder F31.81 ; Nicotine dependence, unspecified, uncomplicated F17.200 ; Generalized anxiety disorder F41.1 and Primary hypertension I10 [facility] [employer] [facility] [address] [place] [address] 06/22/2024 Huber Montalvo Bipolar 2 disorder F31.81 and Generalized anxiety disorder F41.1 [facility] [employer] [facility] [address] [place] [address] 07/06/2024 Huber Montalvo Bipolar 2 disorder F31.81 and Generalized anxiety disorder F41.1 [facility], [facility] [address] [place] [address] 08/05/2024 Huberazra Montalvo Bipolar 2 disorder F31.81 and Generalized anxiety disorder F41.1 [facility], [facility] [address] [place] [address] 08/18/2024 Huber Selvin Bipolar 2 disorder F31.81 and Generalized anxiety disorder F41.1 [facility], [facility] [address] [place] [address] 09/16/2024 Rolly Shira Bipolar II disorder F31.81 ; Generalized anxiety disorder F41.1 and Primary hypertension I10 [facility] [address] [place] [address] 10/08/2024 Huber Montalvo Bipolar 2 disorder F31.81 and Generalized anxiety disorder F41.1 [facility] [address] [place] [address] 10/22/2024 Huber Montalvo Bipolar 2 disorder F31.81 and Generalized anxiety disorder F41.1 [facility] [address] [place] [address] 11/04/2024 Huber Montalvo Bipolar 2 disorder F31.81 and Generalized anxiety disorder F41.1 [facility] [address] [place] [address] 11/16/2024 Rolly Shira Benign essential HTN I10 ; Bipolar II disorder F31.81 ; Generalized anxiety disorder F41.1 ; Primary hypertension I10 and ELVA (generalized anxiety disorder) F41.1 [facility], [facility] [address] [place] [address] 11/20/2024 Huber Montalvo Bipolar 2 disorder F31.81 and Generalized anxiety disorder F41.1 [facility], [facility] [address] [place] [address] 12/04/2024 Huberazra Montalvo Bipolar 2 disorder F31.81 and Generalized anxiety disorder F41.1 [facility], [facility] [address] [place] [address] 12/24/2024 Huber Montalvo Encounter for screening for depression Z13.31 ; Bipolar 2 disorder F31.81 and Generalized anxiety disorder F41.1 [facility] [address] [place] [address] 01/13/2025 Rolly Silva Bipolar 2 disorder F31.81 ; Generalized anxiety disorder F41.1 ; Essential hypertension I10 ; Benign essential HTN I10 ; Encounter for screening for depression Z13.31 ; Encounter for screening for cardiovascular disorders Z13.6 and Dietary counseling and surveillance Z71.3 [facility] [address] [place] [address] 01/13/2025 Huber Montalvo Bipolar 2 disorder F31.81 and Generalized anxiety disorder F41.1 [facility] [address] [place] [address] 01/27/2025 Huber Montalvo Bipolar 2 disorder F31.81 ; Generalized anxiety disorder F41.1 and Encounter for screening for depression Z13.31 [facility] [address] [place] [address] 02/10/2025 Huber Montalvo Negative depression screening Z13.31 ; Bipolar 2 disorder F31.81 and Generalized anxiety disorder F41.1 [facility] [address] [place] [address] 02/24/2025 Huber Montalvo Bipolar 2 disorder F31.81 ; Generalized anxiety disorder F41.1 and Negative depression screening Z13.31 [facility] [address] [place] [address] 03/10/2025 Huber Montalvo Negative depression screening Z13.31 ; Bipolar 2 disorder F31.81 and Generalized anxiety disorder F41.1 [facility] [address] [place] [address] 03/30/2024 Rolly Silva [facility] [address] [place] [address] 11/16/2024 Rolly Silva [facility], [facility] [address] [place] [address] 01/02/2025 Rolly Silva Assessments Encounter Date Diagnosis (ICD [...] intervention if sleep disturbance persists or worsens. 01/27/2025 Bipolar 2 disorder (ICD-10 - F31.81) 74 [...] denied for mental illness. Client born in [facility] and grew up [place], [place]. He is the father of three children. Relationship with children is good but stated that daughter is his favorite. Relationship with parents was not that good and as he gotten stated he did not careif parents live or . 01/13/2025 Generalized anxiety disorder (ICD-10 - F41.1) 74 [...] denied for mental illness. Client born in [facility] and grew up [place], [place]. He is the father of three children. Relationship with children is good but stated that daughter is his favorite. Relationship with parents was not that good and as he gotten stated he did not careif parents live or . 01/13/2025 Bipolar 2 disorder (ICD-10 - F31.81) 74 [...] denied for mental illness. Client born in [facility] and grew up [place], [place]. He is the father of three children. Relationship with children is good but stated that daughter is his favorite. Relationship with parents was not that good and as he gotten stated he did not careif parents live or . 03/30/2024 Nicotine dependence, unspecified, uncomplicated (ICD-10 - [...] intervention if sleep disturbance persists or worsens. 03/10/2025 Bipolar 2 disorder (ICD-10 - F31.81) 74 [...] denied for mental illness. Client born in [facility] and grew up [place], [place]. He is the father of three children. Relationship with children is good but stated that daughter is his favorite. Relationship with parents was not that good and as he gotten stated he did not careif parents live or . 03/10/2025 Negative depression screening (ICD-10 - Z13.31) 74 year old (2x) male seen today [...] denied for mental illness. Client born in [facility] and grew up [place], [place]. He is the father of three children. Relationship with children is good but stated that daughter is his favorite. Relationship with parents was not that good and as he gotten stated he did not careif parents live or . 02/24/2025 Generalized anxiety disorder (ICD-10 - F41.1) 74 [...] denied for mental illness. Client born in [facility] and grew up [place], [place]. He is the father of three children. Relationship with children is good but stated that daughter is his favorite. Relationship with parents was not that good and as he gotten stated he did not careif parents live or . 02/24/2025 Bipolar 2 disorder (ICD-10 - F31.81) 74 [...] denied for mental illness. Client born in [facility] and grew up [place], [place]. He is the father of three children. Relationship with children is good but stated that daughter is his favorite. Relationship with parents was not that good and as he gotten stated he did not careif parents live or . 02/10/2025 Bipolar 2 disorder (ICD-10 - F31.81) 74 [...] denied for mental illness. Client born in [facility] and grew up [place], [place]. He is the father of three children. Relationship with children is good but stated that daughter is his favorite. Relationship with parents was not that good and as he gotten stated he did not careif parents live or . 02/10/2025 Negative depression screening (ICD-10 - Z13.31) 74 year old (2x) male seen today [...] denied for mental illness. Client born in [facility] and grew up [place], [place]. He is the father of three children. Relationship with children is good but stated that daughter is his favorite. Relationship with parents was not that good and as he gotten stated he did not careif parents live or . 01/27/2025 Generalized anxiety disorder (ICD-10 - F41.1) 74 [...] denied for mental illness. Client born in [facility] and grew up [place], [place]. He is the father of three children. Relationship with children is good but stated that daughter is his favorite. Relationship with parents was not that good and as he gotten stated he did not careif parents live or . 05/01/2024 Generalized anxiety disorder (ICD-10 - F41.1) [...] denied for mental illness. Client born in [facility] and grew up [place], [place]. He is the father of three [...] denied for mental illness. Client born in [facility] and grew up [place], [place]. He is the father of three children. Relationship with children is good but stated that daughter is his favorite. Relationship with parents was not that good and as he gotten stated he did not careif parents live or . 01/13/2025 Generalized anxiety disorder (ICD-10 - F41.1) 08/18/2024 Generalized anxiety disorder (ICD-10 - F41.1) [...] denied for mental illness. Client born in [facility] and grew up [place], [place]. He is the father of three [...] denied for mental illness. Client born in [facility] and grew up [place], [place]. He is the father of three [...] denied for mental illness. Client born in [facility] and grew up [place], [place]. He is the father of three [...] denied for mental illness. Client born in [facility] and grew up [place], [place]. He is the father of three [...] having an upcoming appointment to discuss diet. 01/13/2025 Bipolar 2 disorder (ICD-10 - F31.81) 12/24/2024 Encounter for screening for depression (ICD-10 - Z13.31) 74 year old (2x) male seen today [...] denied for mental illness. Client born in [facility] and grew up [place], [place]. He is the father of three children. Relationship with children is good but stated that daughter is his favorite. Relationship with parents was not that good and as he gotten stated he did not careif parents live or . 12/24/2024 Bipolar 2 disorder (ICD-10 - F31.81) 74 [...] denied for mental illness. Client born in [facility] and grew up [place], [place]. He is the father of three children. Relationship with children is good but stated that daughter is his favorite. Relationship with parents was not that good and as he gotten stated he did not careif parents live or . 11/04/2024 Generalized anxiety disorder (ICD-10 - F41.1) 74 [...] denied for mental illness. Client born in [facility] and grew up [place], [place]. He is the father of three children. Relationship with children is good but stated that daughter is his favorite. Relationship with parents was not that good and as he gotten stated he did not careif parents live or . 11/04/2024 Bipolar 2 disorder (ICD-10 - F31.81) 74 [...] denied for mental illness. Client born in [facility] and grew up [place], [place]. He is the father of three children. Relationship with children is good but stated that daughter is his favorite. Relationship with parents was not that good and as he gotten stated he did not careif parents live or . 12/04/2024 Generalized anxiety disorder (ICD-10 - F41.1) 74 [...] denied for mental illness. Client born in [facility] and grew up [place], [place]. He is the father of three children. Relationship with children is good but stated that daughter is his favorite. Relationship with parents was not that good and as he gotten stated he did not careif parents live or . 12/04/2024 Bipolar 2 disorder (ICD-10 - F31.81) 74 [...] denied for mental illness. Client born in [facility] and grew up [place], [place]. He is the father of three children. Relationship with children is good but stated that daughter is his favorite. Relationship with parents was not that good and as he gotten stated he did not careif parents live or . 11/20/2024 Generalized anxiety disorder (ICD-10 - F41.1) 74 [...] denied for mental illness. Client born in [facility] and grew up [place], [place]. He is the father of three children. Relationship with children is good but stated that daughter is his favorite. Relationship with parents was not that good and as he gotten stated he did not careif parents live or . 11/20/2024 Bipolar 2 disorder (ICD-10 - F31.81) 74 [...] denied for mental illness. Client born in [facility] and grew up [place], [place]. He is the father of three children. Relationship with children is good but stated that daughter is his favorite. Relationship with parents was not that good and as he gotten stated he did not careif parents live or . 11/16/2024 Benign essential HTN (ICD-10 - I10) 10/22/2024 Generalized anxiety disorder (ICD-10 - F41.1) [...] denied for mental illness. Client born in [facility] and grew up [place], [place]. He is the father of three [...] denied for mental illness. Client born in [facility] and grew up [place], [place]. He is the father of three [...] denied for mental illness. Client born in [facility] and grew up [place], [place]. He is the father of three [...] denied for mental illness. Client born in [facility] and grew up [place], [place]. He is the father of three [...] assess progress and adjust treatment if necessary. 07/06/2024 Generalized anxiety disorder (ICD-10 - F41.1) [...] denied for mental illness. Client born in [facility] and grew up [place], [place]. He is the father of three [...] denied for mental illness. Client born in [facility] and grew up [place], [place]. He is the father of three children. Relationship with children is good but stated that daughter is his favorite. Relationship with parents was not that good and as he gotten stated he did not careif parents live or . 06/22/2024 Generalized anxiety disorder (ICD-10 - F41.1) [...] denied for mental illness. Client born in [facility] and grew up [place], [place]. He is the father of three [...] denied for mental illness. Client born in [facility] and grew up [place], [place]. He is the father of three children. Relationship with children is good but stated that daughter is his favorite. Relationship with parents was not that good and as he gotten stated he did not careif parents live or . 12/24/2024 Generalized anxiety disorder (ICD-10 - F41.1) 74 [...] denied for mental illness. Client born in [facility] and grew up [place], [place]. He is the father of three children. Relationship with children is good but stated that daughter is his favorite. Relationship with parents was not that good and as he gotten stated he did not careif parents live or . 09/16/2024 Primary hypertension (ICD-10 - I10) Depression [...] assess progress and adjust treatment if necessary. 11/16/2024 Bipolar II disorder (ICD-10 - F31.81) 01/13/2025 Essential hypertension (ICD-10 - I10) 06/18/2024 Nicotine dependence, unspecified, uncomplicated (ICD-10 - [...] intervention if sleep disturbance persists or worsens. 03/10/2025 Generalized anxiety disorder (ICD-10 - F41.1) 74 [...] denied for mental illness. Client born in [facility] and grew up [place], [place]. He is the father of three children. Relationship with children is good but stated that daughter is his favorite. Relationship with parents was not that good and as he gotten stated he did not careif parents live or . 02/10/2025 Generalized anxiety disorder (ICD-10 - F41.1) 74 [...] denied for mental illness. Client born in [facility] and grew up [place], [place]. He is the father of three children. Relationship with children is good but stated that daughter is his favorite. Relationship with parents was not that good and as he gotten stated he did not careif parents live or . 03/30/2024 Primary hypertension (ICD-10 - I10) Anxiety [...] intervention if sleep disturbance persists or worsens. 01/27/2025 Encounter for screening for depression (ICD-10 - Z13.31) 74 year old (2x) male seen today [...] denied for mental illness. Client born in [facility] and grew up [place], [place]. He is the father of three children. Relationship with children is good but stated that daughter is his favorite. Relationship with parents was not that good and as he gotten stated he did not careif parents live or . 02/24/2025 Negative depression screening (ICD-10 - Z13.31) 74 year old (2x) male seen today [...] denied for mental illness. Client born in [facility] and grew up [place], [place]. He is the father of three children. Relationship with children is good but stated that daughter is his favorite. Relationship with parents was not that good and as he gotten stated he did not careif parents live or . 06/18/2024 Generalized anxiety disorder (ICD-10 - F41.1) [...] having an upcoming appointment to discuss diet. 11/16/2024 Generalized anxiety disorder (ICD-10 - F41.1) 11/16/2024 Primary hypertension (ICD-10 - I10) 06/18/2024 Primary hypertension (ICD-10 - I10) Bipolar [...] having an upcoming appointment to discuss diet. 01/13/2025 Benign essential HTN (ICD-10 - I10) 11/16/2024 ELVA (generalized anxiety disorder) (ICD-10 - F41.1) 01/13/2025 Encounter for screening for depression (ICD-10 - Z13.31) 01/13/2025 Encounter for screening for cardiovascular disorders (ICD-10 - Z13.6) 01/13/2025 Dietary counseling and surveillance (ICD-10 - Z71.3) 06/22/2024 Other Client participated in individual psychotherapy(CBT/ Supportive) related to his hx of anxiety and [...] denied for mental illness. Client born in [facility] and grew up [place], [place]. He is the father of three children. Relationship with children is good but stated that daughter is his favorite. Relationship with parents was not that good and as he gotten stated he did not careif parents live or . 07/06/2024 Other Client participated in individual psychotherapy(CBT/ Supportive) related to his hx of mood instability [...] denied for mental illness. Client born in [facility] and grew up [place], [place]. He is the father of three children. Relationship with children is good but stated that daughter is his favorite. Relationship with parents was not that good and as he gotten stated he did not careif parents live or . 08/05/2024 Other Client participated in individual psychotherapy(CBT/ Supportive) related to hx of mood instabilty and [...] denied for mental illness. Client born in [facility] and grew up [place], [place]. He is the father of three children. Relationship with children is good but stated that daughter is his favorite. Relationship with parents was not that good and as he gotten stated he did not careif parents live or . 08/18/2024 Other Client participated in individual psychotherapy(CBT/ Supportive) related to his hx of mood instability [...] denied for mental illness. Client born in [facility] and grew up [place], [place]. He is the father of three children. Relationship with children is good but stated that daughter is his favorite. Relationship with parents was not that good and as he gotten stated he did not careif parents live or . 10/08/2024 Other Client participated in individual psychotheapy(CBT/S upportive) related to his hx of anxiety and [...] Noted he and had a pretty good [employer] in spite of not being around his [...] denied for mental illness. Client born in [facility] and grew up [place], [place]. He is the father of three children. Relationship with children is good but stated that daughter is his favorite. Relationship with parents was not that good and as he gotten stated he did not careif parents live or . 10/22/2024 Other Client participated in individual psychotherapy(CBT/ Supportive) related to his hx of mood instability [...] denied for mental illness. Client born in [facility] and grew up [place], [place]. He is the father of three children. Relationship with children is good but stated that daughter is his favorite. Relationship with parents was not that good and as he gotten stated he did not careif parents live or . 11/04/2024 Other Client participated in individual psychotherap(CBT/S upportive) related to his hx of mood instability and anxiety. Based on today's session continued psychotherapy is recommended with no changes. Client presented to session well groomed and fully oriented with no risk of harm to self or others. Client verbal and engaged through out session. Reported upon presentation that he has been hanging in there and doing good since last seen on 10.22.2024. Added that he and continue to get along with no complaints. Happy that daughter and her family are having a good time on their vacation to [place]. Stated that he is making arrangements to visit her once she returns from her vacation. Saddened that 8 year old granddaughter was sad that he had to cancel his visit with her due to bad weather a few weeks ago. Focus of session on client's relationship with oldest son and how relationship has helped support and fuel depression and anxiety. Admitted that he feels guilty and blames self for son's drug addiction and having wasted his artistic talents. Client receptive to sesssion feedback. Next session in two weeks. 74 [...] denied for mental illness. Client born in [facility] and grew up [place], [place]. He is the father of three children. Relationship with children is good but stated that daughter is his favorite. Relationship with parents was not that good and as he gotten stated he did not careif parents live or . 11/16/2024 Other referral to the local chapter or national office of the Alzheimer's Association (6-970-819-39 00; http://www.al z.org), the Alzheimer's [facility] ([facility]) (9-547-897-43 80; http://www.ni a.nih.gov/Zurdo olguin/), Mood and Depression - Assessment: Patient reports stable mood and no significant depressive symptoms. Medications appear to be effective. - Plan: - Continue current medications (lamotrigine and venlafaxine ER 150). - Encourage patient to maintain regular follow-up with [facility] for ongoing support. Sleep - Assessment: Patient reports no difficulty sleeping but notes sleeping too much, which he attributes to his age. - Plan: - No intervention needed at this time. - Monitor sleep patterns during follow-up visits. Memory - Assessment: Patient denies significant memory changes or forgetfulness, though his occasionally comments on his forgetfulness. - Plan: - Consider repeating paper-pencil memory testing or computer-based testing in the future to monitor cognitive function. Activities of Daily Living - Assessment: Patient reports no difficulty in taking care of himself and managing household tasks. - Plan: - Encourage patient to maintain independence and continue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
--- OUTSIDE RECORDS SUMMARY | 2025-03-11 03:48 | XMS_ITS | Clinical Summary ---
Author Organization [facility] Address [address] [place] [place] [address] Care Team Providers Care Welder Oxyhydrogen Name Role Phone Lauro Oconnor MD Unavailable [phone] Bryan Muse MD Primary Care Provider [phone] Source Comments [facility],non-owned Affiliates and Associated Physician Practices is amultiple site organization consisting of ambulatory clinics and hospital sitesin [place], [place], [place] and [place]. This disclosure is being madepursuant to the Care Everywhere program and may not contain all information available regarding this patient. Last updated 18.[facility] Allergies No known active allergies Medications * Be aware that medications may not be up to date on this document. Alwaysverify current medications with the patient. simvastatin (ZOCOR) 40 MG tablet Take 40 [...] drop into both eyes 2 times daily 09/04/20 17 Active latanoprost (XALATAN) 0.005 % ophthalmic solution Instill 1 drop into both eyes at bedtime Active acetaminophen (TYLENOL) 500 MG tabletIndications: Primary osteoarthritis of left knee Take 2 tablets by mouth every 8 hours Maximum allowable Acetaminophen amount = 4 Grams (4000 mg) / 24 hours. 01/11/20 18 Active Additional Information Patient taking differently:1,000 mg OralEVERY 8 HOURS PRN, Maximum allowable Acetaminophen amount = 4 Grams (4000 mg) / 24 hours., Reported on 01/09/2019 aspirin (ASPIRIN) 325 MG tablet Take 1 tablet by mouth 2 times daily after meals 100 tablet 2 01/16/20 Active HYDROcodone-acetam inophen (NORCO) 10-325 MG tablet Take 1 tablet by mouth every 4 hours as needed for Pain 42 tablet 01/16/20 Active Additional Information Patient not taking.Reported on 04/02/2019 meloxicam (MOBIC) 7.5 MG tablet Take 1 tablet by mouth once daily 30 tablet 4 01/16/20 Active Active Problems Problem Noted Date Diagnosed [...] 70 01/15/2019 10:43 AM CDT Temperature 37.1 C (98.7 F) 01/15/2019 10:43 AM CDT Respiratory Rate 16 01/15/2019 10:43 AM CDT Oxygen Saturation 98% 01/15/2019 10:43 AM CDT Inhaled Oxygen Concentration - - Weight 103 kg (227 lb) 04/02/2019 1:43 PM CDT Height 177.8 cm (5' 10) 04/02/2019 1:43 PM CDT Body Mass Index 32.57 04/02/2019 1:43 PM CDT Plan of Treatment Health Maintenance Due Date Last Done Comments RONNELL (AGES 45-75) - COLON CA SCREENING 1950 COLON MONITORING 1950 COLONOSCOPY - COLON CA SCREENING 1950 CT COLONOGRAPHY - COLON CA SCREENING 1950 Colorectal Cancer Screening 1950 FIT - COLON CA SCREENING 1950 FLEX SIG - COLON CA SCREENING 1950 HEPATITIS C SCREENING 04/13/1970 DTAP/TDAP/TD VACCINES (1 - Tdap) 1971 PNEUMOCOCCAL VACCINE 50+ (1 of 1 - PCV) 2002 ZOSTER VACCINE (1 of 2) 2002 AAA SCREENING 2017 SCREENING FOR DIABETES 01/15/2022 9, 01/07/2019, 01/09/2018, Additional history exists COVID-19 VACCINE ( - 2023- season) 2024 DEPRESSION SCREENING 10/07/2024 INFLUENZA VACCINE (Season Ended) 2025 Respiratory Syncytial Virus (RSV) Vaccine Pt: or over 60 yrs (1 - 1-dose 75+ series) 2027 HEPATITIS B VACCINE Aged Out No longe r eligible based on patient's age to complete this topic HIB VACCINE Aged Out No longer eligi ble based on patient's age to complete this topic HPV VACCINE Aged Out No longer eligi ble based on patient's age to complete this topic MENINGOCOCCAL (Group B) VACCINE SHARED DECISION-MAKING Aged Out No longer eligible based on patient's age to complete this topic MENINGOCOCCAL GROUPS A/C/Y/W VACCINE Aged Out No longer eligible based on patient's age to complete this topic Medical Devices Implanted Type Area State Federal Relations Deputy Director Device Identifier Shelf Expiration Date Model / Serial / Lot Cmnt Bone Plc R 40gm Grn Implanted:Qty: 2 on 01/07/2018 by Lauro Oconnor MD at [facility] Left: Knee [employer] 06/06/2022 [id number] / / [id number] Cmnt Bone Plc R 40gm Grn Implanted:Qty: 1 on 01/07/2018 by Lauro Oconnor MD at [facility] Left: Knee [employer] 06/06/2022 [id number] / / [id number] Cmpnt Ptlr 35mm Persona Alply Kn Lf Implanted:Qty: 1 on 01/07/2018 by Lauro Oconnor MD at [facility] Left: Knee [employer] 10/06/2025 [id number] / / [id number] Cmpnt Fem Kn Lt 7 Std Cmnt Post Stab Implanted:Qty: 1 on 01/07/2018 by Lauro Oconnor MD at [facility] Left: Knee [employer] 06/06/2027 [id number] / / [id number] Bsplt Tib Persona 5d G Kn Lt Cmnt Stm Implanted:Qty: 1 on 01/07/2018 by Lauro Oconnor MD at [facility] Left: Knee [employer] 07/06/2027 [id number] / / [id number] Srfc Artc 10mm 6-9 Gh Kn Lt Vivacit-E Implanted:Qty: 1 on 01/07/2018 by Lauro Oconnor MD at [facility] Left: Knee [employer] 06/06/2021 [id number] / / [id number] Srfc Artc 10mm 6-9 Gh Kn Lt Vivacit-E Implanted:Qty: 1 on 01/13/2019 by Lamont Banks MD at [facility] Left: Knee [employer] 01/04/2023 [id number] / / [id number] Procedures Procedure Name Priority Date/Time Associated Diagnosis Comments BASIC METABOLIC PANEL (CALCIUM TOTAL) AM Draw 01/15/2019 7:50 AM CDT from Last 3 Months or Most Recently Relevant to Health Maintenance Results * BASIC METABOLIC PANEL (CALCIUM TOTAL) (01/15/2019 7:50 AM CDT) [facility] Glucose 82 74 - 106 mg/dL 01/15/2019 8:34 AM CDT [facility] Sodium 141 136 - 145 mmol/L 01/15/2019 8:34 AM CDT [facility] Potassium 4.3 3.5 - 5.1 mmol/L 01/15/2019 8:34 AM CDT [facility] Chloride 105 98 - 107 mmol/L 01/15/2019 8:34 AM CDT [facility] CO2 28 23 - 31 mmol/L 01/15/2019 8:34 AM CDT [facility] Calcium 8.7 8.4 - 10.2 mg/dL 01/15/2019 8:34 AM CDT [facility] Anion Gap 8 8 - 16 mmol/L 01/15/2019 8:34 AM CDT [facility] BUN 14 8.4 - 25.7 mg/dL 01/15/2019 8:34 AM CDT [facility] Creatinine 0.98 0.73 - 1.18 mg/dL 01/15/2019 8:34 AM CDT [facility] eGFR by MDRD >60 >60 mL/min/1.7 3m2 01/15/2019 8:34 AM T [facility] eGFR by MDRD >60 >60 mL/min/1.7 3m2 01/15/2019 8:34 AM [facility] Blood BLOOD SPECIMEN / Unknown Lab Venipuncture / Unknown 01/15/2019 7:50 AM CDT 01/15/2019 8:08 AM CDT Lamont Banks MD LAB - CHEMISTRY ORDERABLES Jael irving Result [facility] [address] [place] [address] from Last 3 Months or Most Recently Relevant to Health Maintenance Insurance [facility] MEDICARE [facility] Care Address: [address] [phone] [facility] MEDICARE Advance Directives * Full Code (Latest Code Status on File) Date Activated Date Inactivated Comments 01/13/2019 1:32 PM 01/15/2019 7:54 PM * Full Code Date Activated Date Inactivated Comments 01/07/2018 3:00 PM 01/10/2018 1:00 PM Care Teams Welder Oxyhydrogen Relationship Specialty Start Date End Date Bryan Muse MD [address] [place] [address] PCP - General 10/26/21 Lauro Oconnor MD [address] [facility] [address] [place] [address] Orthopedist Orthopedic Surgery 07/01/17
--- OUTSIDE RECORDS SUMMARY | 2025-03-11 03:48 | XMS_ITS | Continuity of Care Document ---
Author Organization [facility] Address [address] [place] [address] Phone Care Team Providers Care It Telecom Technician Name Role Phone Elder GASTON, Lionel Unavailable Unavailable Procedures Procedure Date CT, Thorax, Low Dose, Lung CA Screening, W/O Contrast 3D RENDERING, WITH INTERPRET ATION AND REPORTING OF CT MRI OR US WITH IMAGE POSTP Advance Directives Directive Yes / No Effective Date File Name No Information Encounters Encounter Description Practice Location Reason(s) For Visit Diagnoses Date Provider Providers Copied on Encounter [facility], [address], [place], [place], [id number], [place] tel:[phone] [facility] No Information Elder Flowers. [address] , [place], [place], [id number], [place]. tel:[phone] Referring Provider: Pierce Pino, [address], [place], [address]. tel:[phone] Family History Family Member Type Diagnosis Age At Onset No Information Payers Payer name Insurance type Covered libertarian ID Authoriza tion(s) [facility] [id number] Social History Type Description Quantity Date Captured [...]
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
[2025-03-11 10:26] VITALS: BP 130/66; PULSE 61; RESP 19; TEMP 36.4; O2SAT 99
[2025-03-11] MEDS: LACTATED RINGERS 1,000 ML 150 ML IV CONT (10:34)
--- NOTE | 2025-03-11 10:41 | P.PNAN_ITS ---
Anes - Initial Pre Proc Eval Procedure: Operation Date: 03/11/25 11:30 Proposed Procedures p Colonoscopy - Casa Ferris MD Date/Time: 03/11/25 10:41 Surgeon: Casa Ferris MD Pre Op Diagnosis: hx of colon polyps Patient Data Age: 74 Gender: M Height: 1.78 m Weight: 109.2 kg Last Vital Signs Temp 97.5 F L 03/11/25 10:26 Pulse 61 03/11/25 10:26 Resp 19 03/11/25 10:26 BP 130/66 03/11/25 10:26 Pulse Ox 99 03/11/25 10:26 O2 Del Method Room Air 03/11/25 10:26 Allergies Allergy/AdvReac Type Severity Reaction Status Date / Time omeprazole Allergy Mild Hives Verified 03/11/25 10:24 morphine Allergy Difficulty Verified 03/11/25 10:24 Breathing Home Medications ?Medication ?Instructions ?Recorded ?Confirmed ?Type lamotrigine 200 mg tablet 200 mg PO HS 09/12/21 03/11/25 History venlafaxine 150 mg 150 mg PO DAILY 09/12/21 03/11/25 History capsule,extended release 24 hr dorzolamide 2 % eye drops 2 drp ophthalmic (eye) Q12H 04/19/23 03/11/25 History latanoprost 0.005 % eye drops 1 drp ophthalmic (eye) QHS 04/19/23 03/11/25 History albuterol sulfate 90 mcg/actuation 2 puff inhalation Q4-6H PRN 07/31/24 03/11/25 Rx aerosol inhaler Shortness Of Breath #6.7 grams simvastatin 40 mg tablet 40 mg PO HS #90 tabs 10/15/24 03/11/25 Rx amlodipine 5 mg tablet 5 mg PO DAILY #90 tabs 02/11/25 03/11/25 Rx losartan 100 mg tablet 100 mg PO HS 03/10/25 03/11/25 History propranolol 60 mg capsule,24 60 mg PO HS 03/10/25 03/11/25 History hr,extended release Patient hx anesthesia problems: none Family hx anesthesia problems: none Results Review: All pre-operative results and documents have been reviewed as part of the pre- operative evaluation. [facility] Past Medical History Medical History BMI 35.0-35.9,adult BMI 33.0-33.9,adult Screening for prostate cancer Ingrown nail of great toe Glaucoma Recurrent URI (upper respiratory infection) Screen for colon cancer Hyperlipidemia Hypertension Surgical History Surgical History Pneumothorax H/O left knee surgery FH: cholecystectomy Deviated septum Family History Family History Father Stomach cancer Mother , brain tumor No problems noted. Sibling No problems noted. Other Brain tumor Heart disease Hypertension Pancreatic cancer Social History Social History Smoking packs per day: 1 Smoking cigarettes per day: 20.0 Years smoked: 40 Smoking pack-years: 40.00 Smoking status: Former smoker Tobacco type: cigarettes Second hand tobacco smoke exposure: No Smoking end date: 04/08/23 Alcohol intake: current Drinks per week: 1 Substance use: never Substance use type: does not use Do You Feel Safe in your Home?: Yes Lack of Transportation: No Lack of Food: Never True Current Housing: I Have Housing Concerned About Future Housing: No Difficulty Paying Gas/Electric Bills: No Difficulty Paying for Meds: No Currently Unemployed: No Education: Associate Degree Difficulty w/ Childcare or Family Care: No Living arrangements: with family 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 Gender identity (if verbalized by the patient): Male Sexual Orientation (if Verbalized by the Patient): Straight or Heterosexual Spiritual care concerns: No Anes - Eval Final PreProcedure Day of Procedure 03/11/25 10:41 Patient weight: obese Lungs: normal air movement Airway: Mallampati scale class II Neurological: alert and oriented Last oral intake: >/= 8 hours ASA classification: III Emergent: no Anesthetic plan: proceed Anesthesia type and monitoring: general GIVS and standard monitoring Results Review: All pre-operative results and documents have been reviewed as part of the pre- operative evaluation. HTN, hyperlipidemia, COPD, hx of bipolar disorder. Informed Consent: The patient's anesthetic plan and its attendant risks and benefits were discussed with the patient/family/POA. Questions were solicited and answers provided to the satisfaction of the patient/family/POA.
[2025-03-11 11:23] VITALS: BP 96/56; PULSE 64; RESP 19; O2SAT 97
--- NOTE | 2025-03-11 11:28 | SUR.OPER ---
Sigmoid colon polyp cold snared but not retrieved, MD Kendrick wooten
[2025-03-11 11:33] VITALS: BP 98/56; PULSE 60; RESP 19; O2SAT 97
[2025-03-11 11:43] VITALS: BP 111/63; PULSE 60; RESP 19; O2SAT 97
--- NOTE | 2025-03-11 13:15 | S_PTH ---
PATIENT: Luis Antonio Jensen LOC: [facility] Land#:[id number] AGE/SX: 74/M ROOM: RE03/11/[address]: Casa Ferris MD : 1950 BED: DIS: 03/11/2025 SPEC #: [id number] RECD: 03/11/25 13:20 STATUS: PRASANTH RELety #: [id number] ANITA: 03/11/25 13:[address]: Casa Ferris DEPT: [facility] Surgical RECD BY: Chiquis Reyes ENTERED: 03/11/25 13:20 SP TYPE: Surgical OTHR DR: Bryan Muse MD Tissues: A - Colon Polypectomy B - Colon Polypectomy Procedures: Hematoxylin and Eosin Stain Gross and Microscopic Level 4
--- NOTE | 2025-03-18 07:59 | PM.HPGS ---
History of Present Illness History of Present Illness Consent: Risks, benefits, and alternatives have been discussed and questions answered. Patient agrees to proceed with procedure. Chief complaint: hx of colon polyps- this should be H&P for 03/11/25 Narrative: Luis Antonio Jensen is a 74 year old male here for another colonoscopy, h/o colon polyps Review of Systems Review of Systems: All systems reviewed & are unremarkable except as noted in HPI and below PMFSH Past Medical History Medical History (Updated 03/18/25 @ 08:00 by Casa Ferris MD) Colon polyp BMI 35.0-35.9,adult BMI 33.0-33.9,adult Screening for prostate cancer Ingrown nail of great toe Glaucoma Recurrent URI (upper respiratory infection) Screen for colon cancer Hyperlipidemia Hypertension Surgical History Surgical History Pneumothorax H/O left knee surgery FH: cholecystectomy Deviated septum Family History Family History Father Stomach cancer Mother , brain tumor No problems noted. Sibling No problems noted. Other Brain tumor Heart disease Hypertension Pancreatic cancer Social History Social History Smoking packs per day: 1 Smoking cigarettes per day: 20.0 Years smoked: 40 Smoking pack-years: 40.00 Smoking status: Former smoker Tobacco type: cigarettes Second hand tobacco smoke exposure: No Smoking end date: 04/08/23 Alcohol intake: current Drinks per week: 1 Substance use: never Substance use type: does not use Do You Feel Safe in your Home?: Yes Lack of Transportation: No Lack of Food: Never True Current Housing: I Have Housing Concerned About Future Housing: No Difficulty Paying Gas/Electric Bills: No Difficulty Paying for Meds: No Currently Unemployed: No Education: Associate Degree Difficulty w/ Childcare or Family Care: No Living arrangements: with family 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 Gender identity (if verbalized by the patient): Male Sexual Orientation (if Verbalized by the Patient): Straight or Heterosexual Spiritual care concerns: No Meds Home Medications and Allergies Home Medications ?Medication ?Instructions ?Recorded ?Confirmed ?Type lamotrigine 200 mg tablet 200 mg PO HS 09/12/21 03/11/25 History venlafaxine 150 mg 150 mg PO DAILY 09/12/21 03/11/25 History capsule,extended release 24 hr dorzolamide 2 % eye drops 2 drp ophthalmic (eye) Q12H 04/19/23 03/11/25 History latanoprost 0.005 % eye drops 1 drp ophthalmic (eye) QHS 04/19/23 03/11/25 History albuterol sulfate 90 mcg/actuation 2 puff inhalation Q4-6H PRN 07/31/24 03/11/25 Rx aerosol inhaler Shortness Of Breath #6.7 grams simvastatin 40 mg tablet 40 mg PO HS #90 tabs 10/15/24 03/11/25 Rx amlodipine 5 mg tablet 5 mg PO DAILY #90 tabs 02/11/25 03/11/25 Rx losartan 100 mg tablet 100 mg PO HS 03/10/25 03/11/25 History propranolol 60 mg capsule,24 60 mg PO HS 03/10/25 03/11/25 History hr,extended release Allergies Allergy/AdvReac Type Severity Reaction Status Date / Time omeprazole Allergy Mild Hives Verified 03/11/25 10:24 morphine Allergy Difficulty Verified 03/11/25 10:24 Breathing Exam Const: General: cooperative, healthy appearing and comfortable Assessment and Plan Assessment and plan (1) Colon polyp: Code(s): K63.5 - Polyp of colon Status: Acute Assessment and Plan: colonoscopy
== END 2025-03-11 11:57 | disposition home or self-care (01) ==
PROVIDERS: PCP Family Medicine; Referring Provider Internal Medicine Gastroenterology; Visit Provider Internal Medicine Gastroenterology
PROC: 0DJD8ZZ Inspection of Lower Intestinal Tract, Via Natural or Artificial Opening Endoscopic (ICD-10-PCS; CPT 45378; principal; 2025-03-11 11:30)
DX: Z12.11 Encounter for screening for malignant neoplasm of colon (principal); D12.2 Benign neoplasm of ascending colon; K63.5 Polyp of colon; K64.8 Other hemorrhoids; E78.5 Hyperlipidemia, unspecified; I10 Essential (primary) hypertension; E66.9 Obesity, unspecified; Z68.34 Body mass index [BMI] 34.0-34.9, adult; Z79.51 Long term (current) use of inhaled steroids; Z90.49 Acquired absence of other specified parts of digestive tract; Z80.0 Family history of malignant neoplasm of digestive organs; Z82.49 Family history of ischemic heart disease and other diseases of the circulatory system
CPT/HCPCS: 45385; 88305; J2003; J2704; J7120

== ENCOUNTER 2025-03-27 12:42 | Emergency (ER) | payer OTHER, SELFPAY ==
--- NOTE | ~2025-03-27 | XR_ITS ---
XR chest 2V Ordering provider: Noah Perez MD History: 74 years Male with . dizzy UPSET STOMACH X TODAY . Comparison: January 04, 2024 FINDINGS: MEDIASTINUM: The cardiac silhouette is not enlarged. LUNGS: No infiltrates, effusions or pneumothorax. OTHER: No free air under the diaphragm. Degenerative changes of the spine. Calcification seen in the right upper quadrant which may be renal or gallbladder stones. Proper imaging advised. IMPRESSION: No acute cardiopulmonary pathology. Reviewed, dictated and finalized at location A.
--- NOTE | ~2025-03-27 | CT_ITS ---
CTA brain carotid Ordering provider: Noah Perez MD History: . Dizziness . Comparison: None Technique: CT angiogram head and neck was performed following timed intravenous injection of contrast . Thin slice axial images and reformatted coronal images were obtained. Three dimensional reformatted images of the brain were also obtained using a [employer] workstation. Radiation reduction technique ut ilized.The dose-length product was 2079.05 mGy-cm. 100 mL Omnipaque 350 50 was given IV. FINDINGS: HEAD: --ANTERIOR AND MIDDLE CEREBRAL ARTERIES AND BRANCHES: Normal caliber and contour. --INTERNAL CAROTID ARTERIES: Mild atheromatous disease but no significant stenosis. No occlusion. --BASILAR ARTERY AND BRANCHES: Normal caliber and contour. No atheromatous disease. --POSTERIOR CEREBRAL ARTERIES: Normal caliber and contour --POSTERIOR COMMUNICATING ARTERIES: Not visualized which is probably related to congenital absence or small size. --ANEURYSM: None visualized. --BRAIN: Mild brain atrophy with deep white matter ischemic changes.. No evidence of acute infarct or hemorrhage. Empty sella turcica. --BONES AND SUPERFICIAL SOFT TISSUES: Normal. --PARANASAL SINUSES AND MASTOIDS: Left maxillary and sphenoid sinus disease. NECK: --RIGHT CERVICAL CAROTID SYSTEM: Mild atheromatous disease of the carotid bulb and proximal internal carotid artery without significant stenosis. Percent stenosis per NASCET criteria is 30%. No carotid dissection. Otherwise, no significant atheromatous disease or stenosis of the cervical carotid syste m. Retropharyngeal position of the right internal carotid artery is noted. --LEFT CERVICAL CAROTID SYSTEM: Mild atheromatous disease of the carotid bulb and proximal internal c arotid artery without significant stenosis. Percent stenosis per NASCET criteria is 10%. No carotid dissection. Otherwise, no significant atheromatous disease or stenosis of the cervical carotid system. --VERTEBRAL ARTERIES: Normal caliber and contour. --VISUALIZED AORTIC ARCH AND BRANCHING VESSELS: Penetrating atheromatous ulcer is seen in the aortic arch. Moderate atheromatous disease but no significant stenosis. --SOFT TISSUES: Enhancing Soft tissue density in the area of the left tonsil. Clinical evaluation adv ised. --CERVICAL SPINE: Age appropriate degenerative changes. IMPRESSION: 1. Normal CTA head. 2. CTA neck. Percent stenosis per NASCET criteria is 30% on the right and 10% on the left. 3. Penetrating atheromatous ulcer in the aortic arch measuring 9 mm (. 4. Enhancing prominent soft tissue density in the left tonsillar area. Clinical evaluation is advise d. Reviewed, dictated and finalized at location A. IMPRESSION: 1. Normal CTA head. 2. CTA neck. Percent stenosis per NASCET criteria is 30% on the right and 10% on the left. 3. Penetrating atheromatous ulcer in the aortic arch measuring 9 mm (. 4. Enhancing prominent soft tissue density in the left tonsillar area. Clinica l evaluation is advised.
[2025-03-27 12:42] VITALS: BP 141/87; PULSE 55; RESP 20; TEMP 36.6; O2SAT 99
[2025-03-27 13:11] VITALS: BP 154/80; PULSE 65; RESP 18; O2SAT 96
--- NOTE | 2025-03-27 13:42 | ECG_ITS ---
Test Date: 2025-03-27 14:03:19 Measurements Intervals [place] Rate: 54 P: 51 KS: 165 QRS: 13 QRSD: 88 T: 112 QT: 439 QTc: 418 Interpretive Statements SINUS BRADYCARDIA CONSIDER INFERIOR INFARCT, AGE INDETERMINATE ST-T WAVE ABNORMALITY IN HIGH LATERAL LEADS- CONSIDER ISCHEMIA ABNORMAL ECG No previous ECG available for comparison Electronically Signed On 03-27-2025 14:40:09 CDT by Anatoliy Topete D.O.
[2025-03-27 14:06] LABS: Basophils Absolute Auto 0.1 K/mm3 (0.0-0.1); Eosinophils Absolute Auto 0.3 K/mm3 (0-0.3); Eosinophils Percent Auto 3.4 % (0-4.4); Hematocrit 41.3 % (42.0-52.0); Hemoglobin 13.6 g/dL (14.0-18.0); Immature Granulocyte Absolute 0.02 K/mm3 (0.00-0.031); Immature Granulocyte Percent A 0.3 % (0-0.5); Lymphocytes Absolute Auto 1.66 K/mm3 (0.9-3.2); Mean Corpuscular HGB Conc 32.9 g/dl (32-36); Mean Corpuscular Hemoglobin 28.6 pg (26-34); Mean Corpuscular Volume 86.8 fl (80-100); Mean Platelet Volume 9.2 fl (7.4-10.4); Monocytes Absolute Auto 0.7 K/mm3 (0.1-0.6); Monocytes Percent Auto 8.3 % (2.6-8.5); Neutrophils Absolute Auto 5.2 K/mm3 (1.3-6.7); Platelet Count Result 321 k/mm3 (150-375); Red Blood Count 4.76 M/mm3 (4.6-6.20); Red Cell Distribution Width 13.6 % (11.5-14.5); White Blood Count 7.9 K/mm3 (4.5-10.0)
[2025-03-27 14:20] LABS: Alanine Aminotransferase 54 U/L (6-50); Alkaline Phosphatase 75 U/L (38-126); Anion Gap 8 mmol/L (4-12); Aspartate Amino Transferase 46 U/L (17-59); Bilirubin,Total 0.7 mg/dL (0.2-1.3); Blood Urea Nitrogen 12 mg/dL (9-20); Calcium 9.1 mg/dL (8.4-10.2); Carbon Dioxide 25 mmol/L (22-30); Chloride 106 mmol/L (98-107); Estimated CRCL calculation 76 ml/min; Estimated Glomerular Filt Rate > 60; Glucose 100 mg/dL (65-110); Sodium 139 mmol/L (137-145); Total Protein 7.9 g/dL (6.3-8.2)
--- NOTE | 2025-03-27 14:56 | PC.NURSE ---
Pt to CT at this time.
[2025-03-27] MEDS: MECLIZINE HCL 25 MG TABLET PO (15:21)
[2025-03-27] MEDS: SCOPOLAMINE 1 MG PATCH 1 PATCH TRANSDERM (15:21)
--- NOTE | 2025-03-27 15:48 | ED_ITS ---
HPI - General Adult General Chief complaint: Dizziness Stated complaint: dizzy and nausea when standing Time Seen by Provider: 03/27/25 12:50 History of Present Illness HPI narrative: This is a 74-year-old male presenting ED with chief complaint of dizziness. Patient has been experiencing dizziness over last 2 days. It is worse when he stands up and with head movements. He does not have any double vision dysarthria dysphagia or loss of coordination. He is able to walk although helps feels on to something. No weakness to any extremities slurred speech or other neurologic signs. He does have sinus pressure and congestion. Related Data Home Medications ?Medication ?Instructions ?Recorded ?Confirmed ?Last Taken ?Type lamotrigine 200 mg tablet 200 mg PO HS 09/12/21 03/11/25 03/10/25 History venlafaxine 150 mg 150 mg PO DAILY 09/12/21 03/11/25 03/10/25 History capsule,extended release 24 hr dorzolamide 2 % eye drops 2 drp ophthalmic (eye) Q12H 04/19/23 03/11/25 03/10/25 History latanoprost 0.005 % eye drops 1 drp ophthalmic (eye) QHS 04/19/23 03/11/25 03/10/25 History losartan 100 mg tablet 100 mg PO HS 03/10/25 03/11/25 03/10/25 History propranolol 60 mg capsule,24 60 mg PO HS 03/10/25 03/11/25 03/11/25 History hr,extended release Allergies Allergy/AdvReac Type Severity Reaction Status Date / Time omeprazole Allergy Mild Hives Verified 03/27/25 12:51 morphine Allergy Difficulty Verified 03/27/25 12:51 Breathing PMFSH Past Medical History Medical History (Updated 03/27/25 @ 17:16 by Noah Perez MD) Colon polyp BMI 35.0-35.9,adult BMI 33.0-33.9,adult Screening for prostate cancer Ingrown nail of great toe Glaucoma Recurrent URI (upper respiratory infection) Screen for colon cancer Hyperlipidemia Hypertension Surgical History Surgical History Pneumothorax H/O left knee surgery FH: cholecystectomy Deviated septum Family History Family History Father Stomach cancer Mother , brain tumor No problems noted. Sibling No problems noted. Other Brain tumor Heart disease Hypertension Pancreatic cancer Social History Social History Smoking packs per day: 1 Smoking cigarettes per day: 20.0 Years smoked: 40 Smoking pack-years: 40.00 Smoking status: Former smoker Tobacco type: cigarettes Second hand tobacco smoke exposure: No Smoking end date: 04/08/23 Alcohol intake: current Drinks per week: 1 Substance use: never Substance use type: does not use Do You Feel Safe in your Home?: Yes Lack of Transportation: No Lack of Food: Never True Current Housing: I Have Housing Concerned About Future Housing: No Difficulty Paying Gas/Electric Bills: No Difficulty Paying for Meds: No Currently Unemployed: No Education: Associate Degree Difficulty w/ Childcare or Family Care: No Living arrangements: with family 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 Head: atraumatic. EYES: EOMI, NOSE: Atraumatic NECK: Trachea midline RESPIRATORY: No increased rate of breathing clear to auscultation CARDIOVASCULAR: RRR, no peripheral edema ABDOMINAL: Non-distended soft nontender MUSCULOSKELETAl: No obvious deformities NEURO: Alert. Cranial nerves 2-12 grossly intact. Sensation light touch, motor function cerebellar function intact for 4 extremities. Gait exam was normal. SKIN:: Warm, dry. Normal color PSYCHIATRIC: Normal affect Course Vital Signs Vital signs: Vital Signs Temperature 97.9 F 03/27/25 12:42 Pulse Rate 55 L 03/27/25 12:42 Respiratory Rate 20 03/27/25 12:42 Blood Pressure 141/87 H 03/27/25 12:42 Pulse Oximetry 99 03/27/25 12:42 Oxygen Delivery Room Air 03/27/25 12:42 Temperature 97.9 F 03/27/25 12:42 Pulse Rate 65 03/27/25 13:11 Respiratory Rate 18 03/27/25 13:11 Blood Pressure 154/80 H 03/27/25 13:11 Pulse Oximetry 96 03/27/25 13:11 Oxygen Delivery Room Air 03/27/25 12:42 Medical Decision Making [facility] Narrative Medical decision making narrative: -Course: 74-year-old male presenting with episodic, triggerable, dizziness. Neurologic exam is normal. TMs are normal bilaterally. CTA negative for causative findings. Vertigo improved with meclizine and scopolamine patches. Far more likely to be peripheral vertigo from his sinus congestion. Patient found have an incidental aortic ulceration. Imaging was reviewed by vascular surgery at [facility] by Dr. Hardy. He believes the patient can safely be followed on an outpatient basis. They will call the patient to arrange follow- up. Results were discussed with the patient and they may try to find a vascular surgeon in the area that is closer. Regardless I have stressed the importance of appropriate follow-up. Given return precautions for chest pain and stroke sxs. Patient discharged on meclizine and scopolamine. -DDX includes but is not limited to: Peripheral vertigo, central vertigo Vital Signs Vital Signs: Vital Signs Temperature 97.9 F 03/27/25 12:42 Pulse Rate 55 L 03/27/25 12:42 Respiratory Rate 20 03/27/25 12:42 Blood Pressure 141/87 H 03/27/25 12:42 Pulse Oximetry 99 03/27/25 12:42 Oxygen Delivery Room Air 03/27/25 12:42 Temperature 97.9 F 03/27/25 12:42 Pulse Rate 65 03/27/25 13:11 Respiratory Rate 18 03/27/25 13:11 Blood Pressure 154/80 H 03/27/25 13:11 Pulse Oximetry 96 03/27/25 13:11 Oxygen Delivery Room Air 03/27/25 12:42 Lab Data 03/27/25 14:00 03/27/25 14:00 Labs: Lab Results 03/27/25 Range/Units 14:00 WBC 7.9 (4.5-10.0) K/mm3 RBC 4.76 (4.6-6.20) M/mm3 Hgb 13.6 L (14.0-18.0) g/dL Hct 41.3 L (42.0-52.0) % MCV 86.8 (80-100) fl MCH 28.6 (26-34) pg MCHC 32.9 (32-36) g/dl RDW 13.6 (11.5-14.5) % Plt Count 321 (150-375) k/mm3 MPV 9.2 (7.4-10.4) fl Immature Gran % (Auto) 0.3 (0-0.5) % Neut % (Auto) 66.0 (45.5-73.1) % Lymph % (Auto) 21.0 (18.3-44.2) % Treasure % (Auto) 8.3 (2.6-8.5) % Eos % (Auto) 3.4 (0-4.4) % Baso % (Auto) 1.0 (0.2-1.2) % Lymph # (Auto) 1.66 (0.9-3.2) K/mm3 Treasure # (Auto) 0.7 H (0.1-0.6) K/mm3 Eos # (Auto) 0.3 (0-0.3) K/mm3 Baso # (Auto) 0.1 (0.0-0.1) K/mm3 Abs Immat Gran (auto) 0.02 (0.00-0.031) K/mm3 Absolute Neuts (auto) 5.2 (1.3-6.7) K/mm3 Absolute Nucleated RBC 0.000 (0.0-0.012) K/mm3 Nucleated RBC % 0.0 (0.0-0.2) % Sodium 139 (137-145) mmol/L Potassium 5.0 (3.4-5.0) mmol/L Chloride 106 (98-107) mmol/L Carbon Dioxide 25 (22-30) mmol/L Anion Gap 8 (4-12) mmol/L BUN 12 (9-20) mg/dL Creatinine 0.99 (0.7-1.3) mg/dL Estim Creat Clear Calc 76 ml/min Estimated GFR > 60 (59 - ) Glucose 100 (65-110) mg/dL Calcium 9.1 (8.4-10.2) mg/dL Total Bilirubin 0.7 (0.2-1.3) mg/dL AST 46 (17-59) U/L ALT 54 H (6-50) U/L Alkaline Phosphatase 75 (38-126) U/L Total Protein 7.9 (6.3-8.2) g/dL Albumin 4.0 (3.5-5.1) g/dL Discharge Plan Discharge Clinical Impression: Vertigo, Atherosclerotic ulcer of aorta Patient Disposition: Home Condition: Stable Instructions: Antibiotic Form, Dizziness (ED) Additional Instructions: You were seen emergency department for vertigo. Please use meclizine and scopolamine patches for your symptoms. Please follow-up with your primary care physician for further management. You have an incidental aortic ulcer. It is important that you follow-up with a vascular surgeon either at [facility] or a vasuclar surgeon that your primary care physician as referred you to. If you develop chest pain shortness of breath or any new or worsening symptoms please return to the ED immediately for re- evaluation. Patient Language: Romanian Prescriptions: New scopolamine base 1 mg over 3 days patch 3 day 1 patch transdermal Q3D PRN (Reason: vertigo) Qty: 4 0RF meclizine 25 mg tablet 25 mg PO TID Qty: 30 0RF No Action venlafaxine 150 mg capsule,extended release 24hr 150 mg PO DAILY lamotrigine 200 mg tablet 200 mg PO HS latanoprost 0.005 % drops 1 drp ophthalmic (eye) QHS Rx Instructions: BOTH EYES dorzolamide 2 % drops 2 drp ophthalmic (eye) Q12H Rx Instructions: BOTH EYES propranolol 60 mg capsule,extended release 24 hr 60 mg PO HS losartan 100 mg tablet 100 mg PO HS albuterol sulfate 90 mcg/actuation HFA aerosol inhaler 2 puff INHALATION Q4-6H PRN (Reason: Shortness Of Breath) Qty: 6.7 1RF simvastatin 40 mg tablet 40 mg PO HS Qty: 90 1RF amlodipine 5 mg tablet 5 mg PO DAILY Qty: 90 1RF Follow-up/Referrals: Bryan Muse MD [Primary Care Provider] -
== END 2025-03-27 19:34 | disposition home or self-care (01) ==
PROVIDERS: Emergency Provider Emergency Medicine; PCP Family Medicine
DX: I71.22 Aneurysm of the aortic arch, without rupture (principal); R42 Dizziness and giddiness; I10 Essential (primary) hypertension; E78.5 Hyperlipidemia, unspecified; H40.9 Unspecified glaucoma; Z86.0100 Personal history of colon polyps, unspecified; Z87.891 Personal history of nicotine dependence; R00.1 Bradycardia, unspecified; R94.31 Abnormal electrocardiogram [ECG] [EKG]
CPT/HCPCS: 36415; 70496; 70498; 71046; 80053; 85025; 93005; 99284; A9270; Q9967

== ENCOUNTER 2025-04-20 10:15 | Outpatient (CLI) | payer OTHER, SELFPAY ==
--- OUTSIDE RECORDS SUMMARY | 2025-04-20 10:30 | XMS_ITS | Clinical Summary ---
Author Organization [facility] Address [address] [place] [address] Care Team Providers Care Tuyere Fitter Name Role Phone Lauro Oconnor MD Unavailable [phone] Bryan Muse MD Primary Care Provider [phone] Source Comments [facility],non-owned Affiliates and Associated Physician Practices is amultiple site organization consisting of ambulatory clinics and hospital sitesin [place], [place], [place] and [place]. This disclosure is being madepursuant to the Care Everywhere program and may not contain all information available regarding this patient. Last updated 18.[facility] Allergies No known active allergies Medications * [...] FLEX SIG - COLON CA SCREENING 1952 MEDICARE AWV 12 MONTHS 1952 HEPATITIS C SCREENING 04/13/1970 DTAP/TDAP/TD VACCINES (1 - Tdap) 1971 PNEUMOCOCCAL VACCINE 50+ (1 of 2 - PCV) 1971 ZOSTER VACCINE (1 of 2) 2002 Respiratory Syncytial Virus (RSV) Vaccine Pt: or over 60 yrs (1 - Risk 60-74 years 1-dose series) 2012 AAA SCREENING 2017 SCREENING FOR DIABETES 01/15/2022 9, 01/07/2019, 01/09/2018, Additional history exists COVID-19 VACCINE () 06/07/2024 DEPRESSION SCREENING 10/07/2024 INFLUENZA VACCINE (#1) 2025 HEPATITIS B VACCINE Aged Out No longe [...] this topic Medical Devices Implanted Type Area Living Manager Device Identifier Shelf Expiration Date Model / Serial / Lot Cmnt Bone Plc R 40gm Grn Implanted:Qty: 2 on 01/07/2018 by Lauro Oconnor MD at [facility] Left: Knee [employer] 06/06/2022 [id number] / / [id number] Cmnt Bone Plc R 40gm Grn Implanted:Qty: 1 on 01/07/2018 by Lauro Oconnor MD at [facility] Left: Knee [employer] 06/06/2022 [id number] / / [id number] Cmpnt Ptlr 35mm Persona Alply Kn Lf Implanted:Qty: 1 on 01/07/2018 by Lauro Oconnor MD at [facility] Left: Knee [employer] 10/06/2025 [id number] / / [id number] Cmpnt Fem Kn Lt 7 Std Cmnt Post Stab Implanted:Qty: 1 on 01/07/2018 by Lauro Oconnor MD at [facility] Left: Knee [employer] 06/06/2027 [id number] / / [id number] Bsplt Tib Persona 5d G Kn Lt Cmnt Stm Implanted:Qty: 1 on 01/07/2018 by Lauro Oconnor MD at [facility] Left: Knee [employer] 07/06/2027 [id number] / / [id number] [facility] Artc 10mm 6-9 Gh Kn Lt Vivacit-E Implanted:Qty: 1 on 01/07/2018 by Lauro Oconnor MD at [facility] Left: Knee [employer] 06/06/2021 [id number] / / [id number] [facility] Artc 10mm 6-9 Gh Kn Lt Vivacit-E Implanted:Qty: 1 on 01/13/2019 by Lamont Banks MD at [facility] Left: Knee [employer] 01/04/2023 [id number] / / [id number] Procedures Procedure Name Priority Date/Time Associated Diagnosis Comments BASIC METABOLIC PANEL (CALCIUM TOTAL) AM Draw 01/15/2019 7:50 AM CDT from Last 3 Months or Most Recently Relevant to Health Maintenance Results * BASIC METABOLIC PANEL (CALCIUM TOTAL) (01/15/2019 7:50 AM CDT) [facility] Glucose 82 74 - 106 mg/dL 01/15/2019 8:34 AM CDT [facility] Sodium 141 136 - 145 mmol/L 01/15/2019 8:34 AM CDT [facility] Potassium 4.3 3.5 - 5.1 mmol/L 01/15/2019 8:34 AM CDT [facility] Chloride 105 98 - 107 mmol/L 01/15/2019 8:34 AM CDT [facility] CO2 28 23 - 31 mmol/L 01/15/2019 8:34 AM CDT [facility] Calcium 8.7 8.4 - 10.2 mg/dL 01/15/2019 8:34 AM CDT [facility] Anion Gap 8 8 - 16 mmol/L 01/15/2019 8:34 AM CDT [facility] BUN 14 8.4 - 25.7 mg/dL 01/15/2019 8:34 AM CDT [facility] Creatinine 0.98 0.73 - 1.18 mg/dL 01/15/2019 8:34 AM CDT [facility] eGFR by MDRD >60 >60 mL/min/1.7 3m2 01/15/2019 8:34 AM CDT [facility] eGFR by MDRD >60 >60 mL/min/1.7 3m2 01/15/2019 8:34 AM CDT [facility] Blood BLOOD SPECIMEN / Unknown Lab Venipuncture / Unknown 01/15/2019 7:50 AM CDT 01/15/2019 8:08 AM CDT Lamont Banks MD LAB - CHEMISTRY ORDERABLES Jael irving Result [facility] [address] [place] [address] from Last 3 Months or Most Recently Relevant to Health Maintenance Insurance [employer] E[employer]ENCE MED[employer] ADV PPO SELF PAY NO INSURANCE Member Subscriber Plan / Payer (Ef fective for All Dates) Name:Patrick Pennington Member ID:Not on file Relation to Subscriber:Not on file Name:PATRICK PENNINGTON Subscriber ID:Not on file (Home) Address: [address] [place] [id number] Payer ID:Not on file Group ID:Not on file Type:Self Pay Address: [place], [place] [employer] Advance Directives * Full Code (Latest Code Status on File) Date Activated Date Inactivated Comments 01/13/2019 1:32 PM 01/15/2019 7:54 PM * Full Code Date Activated Date Inactivated Comments 01/07/2018 3:00 PM 01/10/2018 1:00 PM Care Teams Tuyere Fitter Relationship Specialty Start Date End Date Bryan Muse MD [address] [place] [address] PCP - General 10/26/21 Lauro Oconnor MD [address] [address] Orthopedist Orthopedic Surgery 07/01/17
--- OUTSIDE RECORDS SUMMARY | 2025-04-20 10:30 | XMS_ITS | Encounter Summary ---
Author Organization [facility] Address [address] [place] [address] Care Team Providers Care Cell Lead Name Role Phone Lauro Oconnor MD Unavailable [phone] Bryan uMse MD Primary Care Provider [phone] Encounter Details Date Type Department Care Team (Late st Contact Info) Description 08/14/2019 [facility] Outpatient Visit [facility] [address] [place] [address] [id number] Lamont Banks MD [address] [place] [address] [address] [place] [id number] Social History Tobacco Use Types Packs/Day Years [...] of Assessment Author No 01/13/2019 10:30 PM CDAshlie Rivera RN * Does person have difficulty doing [...] on filedocumented in this encounter Care Teams Cell Lead Relationship Specialty Start Date End Date Bryan Muse MD [address] [place] [id number] PCP - General 10/26/21 Lauro Oconnor MD [address] [address] Orthopedist Orthopedic Surgery 07/01/17 documented as of this encounter
[2025-04-20 10:59] LABS: Alanine Aminotransferase 41 U/L (6-50); Albumin Level 3.8 g/dL (3.5-5.1); Alkaline Phosphatase 78 U/L (38-126); Aspartate Amino Transferase 32 U/L (17-59); Bilirubin,Total 0.4 mg/dL (0.2-1.3); Total Protein 7.3 g/dL (6.3-8.2)
[2025-04-20 11:43] LABS: Hepatitis B Surface Antigen Negative (Negative)
[2025-04-20 11:49] LABS: HAV RESULT Negative (Negative); Hepatitis B Core IgM Result Negative (Negative)
== END 2025-04-20 10:16 | disposition home or self-care (01) ==
PROVIDERS: PCP Family Medicine; Visit Provider Physician Assistant Medical
DX: R79.89 Other specified abnormal findings of blood chemistry (principal); R74.01 Elevation of levels of liver transaminase levels
CPT/HCPCS: 36415; 80074; 80076

== ENCOUNTER 2025-04-20 11:15 | Outpatient (CLI) | payer OTHER, SELFPAY ==
--- NOTE | ~2025-04-20 | CT_ITS ---
CT scan of the Neck Technique: 2.5 mm axial scans were obtained through the neck after intravenous administration of 75 c c Omnipaque 350. Coronal and sagittal reconstructions of the neck were obtained. Dose reduction techn ique was used on this scan by utilizing automated exposure control and iterative reconstruction techn ique. The dose-length product (DLP) was 441.26 mGy-cm. Clinical History: Chronic disease of tonsils and adenoids Findings: There is no evidence of any significant cervical lymphadenopathy. Several small, nonenlarged jugulo- digastric and posterior cervical lymph nodes are noted bilaterally. Parapharyngeal spaces appear norm al bilaterally. The parotid and submandibular glands appear normal. The pharyngeal mucosal spaces appear normal. No soft tissue masses are seen in the neck. There is complete opacification of left maxillary sinus as well as a few left ethmoid air cells. Taylor ining paranasal sinuses and mastoid air cells are clear. The thyroid gland appears normal. Images of the lung apices reveal no abnormalities. Impression: Complete opacification of left maxillary sinus and several left ethmoid air cells. This could reflect sinusitis, but sinus mass lesion cannot be completely excluded. If this is of concern, then pre and postcontrast sinus MR would be advised for further evaluation. Reviewed, dictated and finalized at location . Impression: Complete opacification of left maxillary sinus and several left ethmoid air vikki ls. This could reflect sinusitis, but sinus mass lesion cannot be completely ex cluded. If this is of concern, then pre and postcontrast sinus MR would be advi sed for further evaluation.
[2025-04-20 11:32] LABS: Estimated Glomerular Filt Rate 59
== END 2025-04-20 11:16 | disposition home or self-care (01) ==
LOC: MICIMG 11:16
PROVIDERS: PCP Family Medicine; Visit Provider Otolaryngology
DX: J35.8 Other chronic diseases of tonsils and adenoids (principal); K21.9 Gastro-esophageal reflux disease without esophagitis
CPT/HCPCS: 70491; Q9967